=== PATIENT | male | born 1960 | race Caucasian/White ===

== ENCOUNTER 2016-12-27 07:45 | Day surgery (SDC) | payer MEDICAID, OTHER ==
[2016-12-26 08:57] VITALS: BMI 27.4
[~2016-12-27 07:45] MED LIST: LACTATED RINGERS 1,000 ML IV SCH; LIDOCAINE 1% 20 ML VIAL (10MG/ML) FOR IV START INTRADERMA PRN
[2016-12-27 08:08] VITALS: RESP 16; TEMP 97.1
[2016-12-27 08:24] LABS: Glucose,Whole Blood 144 mg/dL (75-99)
[2016-12-27] MEDS ORDERED: LIDOCAINE 1% INJ 10MG/ML (20 ML MDV) ONE (09:00)
[2016-12-27] MEDS ORDERED: PROPOFOL 10 MG/ML 20 ML VIAL IV ONE (09:00)
[2016-12-27 09:46] VITALS: BP 126/79; PULSE 77
--- NOTE | 2016-12-27 13:14 | P.PCN ---
Date of Procedure: 12/27/16 Procedure(s) Performed: Procedure: Colonoscopy and polypectomy. Preoperative diagnosis: Screening for neoplasia. Postoperative diagnosis: 2 small polyps snared 1 around the hepatic flexure and one in the sigmoid and retrieved by suction but no large polyps or cancer. Preparation: HalfLytely prep. Sedation: Was provided by anesthesia. Brief clinical history: The patient is a 56-year-old male who is referred for this evaluation for screening for neoplasia age being his risk factor. He had a colonoscopy more than 10 years ago. The patient has no abdominal complaints, bleeding or anemia. His father had colon cancer in his 80s. Procedure: With the patient on his left lateral decubitus position and after informed consent and adequate sedation, the perianal area was inspected and it did not show any fissures or fistulas. There were no masses felt on digital rectal examination. The Olympus CFQ 160L video colonoscope was then inserted in the rectum in the usual fashion and advanced to the cecum. There were 2 polyps noted, one around the hepatic flexure and one in the proximal sigmoid, benign looking averaging around 1 cm in size. Both were snared and retrieved by suction. There were no large polyps or cancer. The mucosa appeared healthy. No obvious diverticular disease. I retroflexed the endoscope in the rectum before the endoscope was withdrawn. The patient tolerated the procedure well. Plan: The patient was reassured. Will await pathology results. Because of his family history and the findings of polyps today, I anticipate repeating this exam in around 5 years. He will follow up with you as planned.
== END 2016-12-27 10:02 | disposition home or self-care (01) ==
LOC: ORWHC2ENDO 07:45
DX: Z12.11 Encounter for screening for malignant neoplasm of colon (principal); D12.5 Benign neoplasm of sigmoid colon; D12.3 Benign neoplasm of transverse colon; Z80.0 Family history of malignant neoplasm of digestive organs; Z85.828 Personal history of other malignant neoplasm of skin; E11.9 Type 2 diabetes mellitus without complications; Z79.84 Long term (current) use of oral hypoglycemic drugs; M19.90 Unspecified osteoarthritis, unspecified site; Z79.82 Long term (current) use of aspirin; Z79.899 Other long term (current) drug therapy; Z91.030 Bee allergy status
CPT/HCPCS: 88305; 45385; J2001; J2704

== ENCOUNTER → 2017-03-01 | Outpatient (CLI) | payer MEDICAID ==
[2017-03-01 08:29] LABS: Basophils # (A) 0.1 k/uL (0-0.2); Basophils % (A) 1 %; CH 30.5; CHCM 33.1; Eosinophils # (A) 0.3 k/uL (0-0.7); Eosinophils % (A) 4 %; HCT 48.3 % (39.0-53.0); HDW 2.35; HGB 15.7 gm/dL (13.0-17.5); Luc # (Auto) 0.24; Luc % (Auto) 3; Lymphocytes # (A) 3.2 k/uL (1.0-4.8); Lymphocytes % (A) 34 %; MCHC 32.5 g/dL (31.0-37.0); MCV 92.5 fL (80.0-100.0); Mean Platelet Volume 6.8; Monocytes # (A) 0.4 k/uL (0-1.0); Monocytes % (A) 4 %; Neutrophils # (A) 5.1 k/uL (1.3-7.7); Neutrophils % (A) 54 %; RBC 5.22 m/uL (4.30-5.90); RDW 12.3 % (11.5-15.5); WBC 9.4 k/uL (3.8-10.6); WBC (Perox) 9.21
[2017-03-01 09:00] LABS: ALT 41 U/L (21-72); AST 22 U/L (17-59); Alkaline Phosphatase 69 U/L (38-126); Anion Gap 8 mmol/L; Blood Urea Nitrogen 18 mg/dL (9-20); Calcium 9.5 mg/dL (8.4-10.2); Carbon Dioxide 25 mmol/L (22-30); Chloride 106 mmol/L (98-107); Cholesterol 163 mg/dL (<200); Creatine Kinase 68 U/L (55-170); Glucose 173 mg/dL (74-99); HDL Cholesterol 57 mg/dL (40-60); Non-African American GFR(MDRD) >60 (>60 ml/min/1.73 sqM); Potassium 4.7 mmol/L (3.5-5.1); Sodium 139 mmol/L (137-145); Total Bilirubin 1.1 mg/dL (0.2-1.3); Total Protein 6.9 g/dL (6.3-8.2)
[2017-03-01 09:18] LABS: Prostate Specific Antigen 0.24 ng/mL (0.00-4.00)
[2017-03-01 10:15] LABS: Erythrocyte Sedimentation Rate 2 mm/hr (0-15)
== END | disposition home or self-care (01) ==
LOC: LABWHC1 07:59
PROVIDERS: ATTEND Family Medicine
DX: Z00.00 Encounter for general adult medical examination without abnormal findings (principal); E78.00 Pure hypercholesterolemia, unspecified; R53.81 Other malaise; E55.9 Vitamin D deficiency, unspecified; Z11.59 Encounter for screening for other viral diseases
CPT/HCPCS: 36415; 80053; 80061; 80074; 82306; 82550; 82607; 84153; 84443; 85025; 85652; 87390

== ENCOUNTER → 2019-12-04 | Outpatient (CLI) | payer MEDICAID ==
[2019-12-04 09:14] LABS: Basophils # (A) 0.1 k/uL (0-0.2); Basophils % (A) 1 %; Eosinophils # (A) 0.4 k/uL (0-0.7); Eosinophils % (A) 4 %; HCT 50.5 % (39.0-53.0); HGB 15.7 gm/dL (13.0-17.5); Lymphocytes # (A) 3.7 k/uL (1.0-4.8); Lymphocytes % (A) 37 %; MCH 29.5 pg (25.0-35.0); MCHC 31.2 g/dL (31.0-37.0); MCV 94.4 fL (80.0-100.0); Mean Platelet Volume 7.3; Monocytes # (A) 0.5 k/uL (0-1.0); Monocytes % (A) 5 %; Neutrophils # (A) 5.2 k/uL (1.3-7.7); Neutrophils % (A) 51 %; Platelet Count 314 k/uL (150-450); RBC 5.34 m/uL (4.30-5.90); RDW 12.3 % (11.5-15.5); WBC 10.1 k/uL (3.8-10.6)
[2019-12-04 09:26] LABS: Appearance,Urine Clear (Clear); Bilirubin,Urine Negative (Negative); Blood,Urine Negative (Negative); Color,Urine Light Yellow; Glucose,Urine (UA) 4+ (Negative); Ketones,Urine 1+ (Negative); Leukocyte Esterase,Urine Negative (Negative); Nitrite,Urine Negative (Negative); Protein,Urine Negative (Negative); Specific Gravity,Urine 1.038 (1.001-1.035); Urobilinogen,Urine <2.0 mg/dL (<2.0)
[2019-12-04 16:22] LABS: African American GFR (CKD) 93.7 (60.0-200.0); Albumin 4.6 g/dL (3.80-4.90); Anion Gap 11.8 mmol/L (4.00-12.00); Calcium 9.7 mg/dL (8.7-10.3); Carbon Dioxide 24.2 mmol/L (21.6-31.8); Chol/HDL Ratio 3.22; Globulin 2.3 g/dL (1.6-3.3); LDL Cholesterol,Calculated 107.8 mg/dL (0.0-131.0); Non-African American GFR(CKD) 80.9 (60.0-200.0); Potassium 4.4 mmol/L (3.5-5.5); Total Bilirubin 1.1 mg/dL (0.2-1.2); Total Protein 6.9 g/dL (6.2-8.2); VLDL Calculation 23.2 mg/dL (5.00-40.00)
[2019-12-04 16:42] LABS: Prostate Specific Antigen 0.3 ng/mL (0.0-4.5)
[2019-12-04 18:32] LABS: Microalbumin Creatinine Ratio <30 mg/g Creat (0-30); Urine Creatinine 79.2 mg/dL
== END | disposition home or self-care (01) ==
LOC: LABWHC1 07:26
PROVIDERS: ATTEND Family Medicine
DX: E78.5 Hyperlipidemia, unspecified (principal); E11.65 Type 2 diabetes mellitus with hyperglycemia; Z12.5 Encounter for screening for malignant neoplasm of prostate
CPT/HCPCS: 36415; 80053; 80061; 81003; 82043; 82550; 82570; 84153; 84443; 85025

== ENCOUNTER 2020-03-22 17:33 | Inpatient (IN) | payer MEDICAID ==
[2020-03-22 17:50] LABS: Glucose,Whole Blood 287 mg/dL (75-99)
[2020-03-22] MEDS ORDERED: SODIUM CHLORIDE 0.9% 1,000 ML IV STA (17:51)
[2020-03-22] MEDS ORDERED: SODIUM CHLORIDE 0.9% 1,000 ML IV ONE (17:51)
--- NOTE | 2020-03-22 17:55 | ED ---
General Adult HPI - General Stated complaint: dehydration Time Seen by Provider: 03/22/20 17:38 Source: patient, EMS, RN notes reviewed Mode of arrival: EMS Limitations: altered mental status, physical limitation - History of Present Illness Initial comments: Patient is a pleasant 59-year-old male presenting to the emergency department with change in mental status. Patient has been generally weak for the past few days. Patient admits to not eating or drinking much. Family was concerned about change in mental status today. Patient is a poor historian and offers little information. No reported fevers. No cough. No reported vomiting or diarrhea. Patient did have recent coronavirus test a couple of days ago that was reported as negative. - Related Data Home Medications Medication Instructions Recorded Confirmed Aspirin EC [Ecotrin] 81 mg PO DAILY 08/05/15 03/22/20 Atorvastatin [Lipitor] 10 mg PO HS 08/05/15 03/22/20 metFORMIN HCL 1,000 mg PO BID 08/05/15 03/22/20 Dapagliflozin Propanediol [Farxiga] 10 mg PO DAILY 03/22/20 03/22/20 Ertugliflozin Pidolate [Steglatro] 15 mg PO DAILY 03/22/20 03/22/20 Allergies Allergy/AdvReac Type Severity Reaction Status Date / Time venom-honey bee Allergy Unknown HIVE, Verified 03/22/20 18:58 [bee venom (honey bee)] REDNESS Review of Systems ROS Statement: Those systems with pertinent positive or pertinent negative responses have been documented in the HPI. ROS Other: All systems not noted in ROS Statement are negative. 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 History of Any Multi-Drug Resistant Organisms: None Reported Past Surgical History: No Surgical Hx Reported, Orthopedic Surgery Additional Past Surgical History / Comment(s): COLONOSCOPY, LEFT ROTATOR CUFF DISTAL CLAVICLE EXCISION. LESIONS REMOVED FROM FACE Past Anesthesia/Blood Transfusion Reactions: No Reported Reaction Past Psychological History: No Psychological Hx Reported Past Alcohol Use History: Rare Past Drug Use History: None Reported - Past Family History Father Family Medical History: Cancer General Exam Limitations: no limitations General appearance: alert, in no apparent distress Head exam: Present: normocephalic Eye exam: Present: normal appearance, PERRL, EOMI, other (Right eyebrow abrasion) ENT exam: Present: mucous membranes dry Neck exam: Present: normal inspection. Absent: tenderness, meningismus Respiratory exam: Present: normal lung sounds bilaterally Cardiovascular Exam: Present: regular rate, normal rhythm GI/Abdominal exam: Present: soft. Absent: tenderness Extremities exam: Present: normal inspection Neurological exam: Present: alert, other (Resting tremor is present). Absent: motor sensory deficit Expanded Neurological exam: Present: protecting the airway Patient oriented to: Present: person, place. Absent: time Cranial nerves: EOM's Intact: Normal Motor strength exam: RUE: 5, LUE: 5, RLE: 5, LLE: 5 Eye Response: (4) open spontaneously Motor Response: (6) obeys commands Verbal Response: (4) confused conversation Psychiatric exam: Present: flat affect Skin exam: Present: normal color Course Vital Signs 03/22/20 03/22/20 03/22/20 17:50 18:40 19:20 Temperature 94 F L 95.3 F L 96.2 F L Pulse Rate 101 H 105 H 102 H Respiratory 18 18 18 Rate Blood Pressure 110/74 151/91 143/90 O2 Sat by Pulse 99 99 99 Oximetry - Reevaluation(s) Reevaluation #1: 03/22/20 21:44 Unable to perform lumbar puncture secondary to patient noncompliance with both upright and lateral positions. Patient did continue to try to lay down and would not be compliant despite several attempts. Small dose of IV Ativan was attempted without improvement of feeling comfortable performing this procedure without harming the patient. Dr. richmond was updated. 03/22/20 21:49 Case also discussed with Dr. Guan who will consult. He requests additional amp of sodium bicarb at this time. EKG Findings - EKG Comments: EKG Findings:: Sinus rhythm at 100. SC 126. QRS 70. QT 370. QTc 477. Normal axis. Normal QRS. Nonspecific ST-T. Motion artifact present. Procedures - ABG Interpretation Ph: 7.183 PCO2: 18.4 PO2: 104 Bicarbonate: 6.9 Interpretation: metabolic acidosis Medical Decision Making - Medical Decision Making Patient was reevaluated and is more alert and talkative. Still not oriented to year. is present. Patient and family updated. Case was discussed in detail with Dr. richmond, who will admit covering for Dr. Alonzo, who admits for Dr. Evangelista. - Lab Data Result diagrams: 03/22/20 18:07 03/22/20 18:07 Lab Results 03/22/20 03/22/20 03/22/20 Range/Units 17:48 18:07 18:07 WBC 19.3 H (3.8-10.6) k/uL RBC 5.10 (4.30-5.90) m/uL Hgb 15.1 (13.0-17.5) gm/dL Hct 46.1 (39.0-53.0) % MCV 90.3 (80.0-100.0) fL MCH 29.6 (25.0-35.0) pg MCHC 32.8 (31.0-37.0) g/dL RDW 13.1 (11.5-15.5) % Plt Count 317 (150-450) k/uL MPV 8.1 Neutrophils % 84 % Lymphocytes % 7 % Monocytes % 4 % Eosinophils % 1 % Basophils % 1 % Neutrophils # 16.3 H (1.3-7.7) k/uL Lymphocytes # 1.4 (1.0-4.8) k/uL Monocytes # 0.8 (0-1.0) k/uL Eosinophils # 0.1 (0-0.7) k/uL Basophils # 0.2 (0-0.2) k/uL PT 10.0 (9.0-12.0) sec INR 1.0 (<1.2) APTT 20.0 L (22.0-30.0) sec Sodium (137-145) mmol/L Potassium (3.5-5.1) mmol/L Chloride (98-107) mmol/L Carbon Dioxide (22-30) mmol/L Anion Gap mmol/L BUN (9-20) mg/dL Creatinine (0.66-1.25) mg/dL Est GFR (CKD-EPI)AfAm (>60 ml/min/1.73 sqM) Est GFR (CKD-EPI)NonAf (>60 ml/min/1.73 sqM) Glucose (74-99) mg/dL POC Glucose (mg/dL) 287 H (75-99) mg/dL POC Glu Impregnator Operator Marina Martínez Calcium (8.4-10.2) mg/dL Magnesium (1.6-2.3) mg/dL Total Bilirubin (0.2-1.3) mg/dL AST (17-59) U/L ALT (4-49) U/L Alkaline Phosphatase (38-126) U/L Lactate Dehydrogenase (313-618) U/L Troponin I (0.000-0.034) ng/mL C-Reactive Protein (<10.0) mg/L Total Protein (6.3-8.2) g/dL Albumin (3.5-5.0) g/dL TSH (0.465-4.680) mIU/L Free T4 (0.78-2.19) ng/dL Free T3 pg/mL (2.8-5.3) pg/ml Urine Color Urine Appearance (Clear) Urine pH (5.0-8.0) Ur Specific [place] (1.001-1.035) Urine Protein (Negative) Urine Glucose (UA) (Negative) Urine Ketones (Negative) Urine Blood (Negative) Urine Nitrite (Negative) Urine Bilirubin (Negative) Urine Urobilinogen (<2.0) mg/dL Ur Leukocyte Esterase (Negative) Urine RBC (0-5) /hpf Urine WBC (0-5) /hpf Ur Squamous Epith Cells (0-4) /hpf Amorphous Sediment (None) /hpf Urine Bacteria (None) /hpf Hyaline Casts (0-2) /lpf Urine Mucus (None) /hpf Salicylates mg/dL Coronavirus (PCR) (Not Detectd) 03/22/20 03/22/20 03/22/20 Range/Units 18:07 18:07 18:07 WBC (3.8-10.6) k/uL RBC (4.30-5.90) m/uL Hgb (13.0-17.5) gm/dL Hct (39.0-53.0) % MCV (80.0-100.0) fL MCH (25.0-35.0) pg MCHC (31.0-37.0) g/dL RDW (11.5-15.5) % Plt Count (150-450) k/uL MPV Neutrophils % % Lymphocytes % % Monocytes % % Eosinophils % % Basophils % % Neutrophils # (1.3-7.7) k/uL Lymphocytes # (1.0-4.8) k/uL Monocytes # (0-1.0) k/uL Eosinophils # (0-0.7) k/uL Basophils # (0-0.2) k/uL PT (9.0-12.0) sec INR (<1.2) APTT (22.0-30.0) sec Sodium 143 (137-145) mmol/L Potassium 4.7 (3.5-5.1) mmol/L Chloride 118 H (98-107) mmol/L Carbon Dioxide <5 L* (22-30) mmol/L Anion Gap mmol/L BUN 63 H (9-20) mg/dL Creatinine 2.77 H (0.66-1.25) mg/dL Est GFR (CKD-EPI)AfAm 27 (>60 ml/min/1.73 sqM) Est GFR (CKD-EPI)NonAf 24 (>60 ml/min/1.73 sqM) Glucose 309 H (74-99) mg/dL POC Glucose (mg/dL) (75-99) mg/dL POC Glu Impregnator Operator ID Calcium 8.1 L (8.4-10.2) mg/dL Magnesium 2.9 H (1.6-2.3) mg/dL Total Bilirubin 0.4 (0.2-1.3) mg/dL AST 29 (17-59) U/L ALT 15 (4-49) U/L Alkaline Phosphatase 95 (38-126) U/L Lactate Dehydrogenase 1195 H (313-618) U/L Troponin I <0.012 (0.000-0.034) ng/mL C-Reactive Protein 49.0 H (<10.0) mg/L Total Protein 5.6 L (6.3-8.2) g/dL Albumin 2.8 L (3.5-5.0) g/dL TSH 0.715 (0.465-4.680) mIU/L Free T4 0.96 (0.78-2.19) ng/dL Free T3 pg/mL 1.6 L (2.8-5.3) pg/ml Urine Color Urine Appearance (Clear) Urine pH (5.0-8.0) Ur Specific [place] (1.001-1.035) Urine Protein (Negative) Urine Glucose (UA) (Negative) Urine Ketones (Negative) Urine Blood (Negative) Urine Nitrite (Negative) Urine Bilirubin (Negative) Urine Urobilinogen (<2.0) mg/dL Ur Leukocyte Esterase (Negative) Urine RBC (0-5) /hpf Urine WBC (0-5) /hpf Ur Squamous Epith Cells (0-4) /hpf Amorphous Sediment (None) /hpf Urine Bacteria (None) /hpf Hyaline Casts (0-2) /lpf Urine Mucus (None) /hpf Salicylates <1.0 mg/dL Coronavirus (PCR) (Not Detectd) 03/22/20 03/22/20 Range/Units 18:20 18:20 WBC (3.8-10.6) k/uL RBC (4.30-5.90) m/uL Hgb (13.0-17.5) gm/dL Hct (39.0-53.0) % MCV (80.0-100.0) fL MCH (25.0-35.0) pg MCHC (31.0-37.0) g/dL RDW (11.5-15.5) % Plt Count (150-450) k/uL MPV Neutrophils % % Lymphocytes % % Monocytes % % Eosinophils % % Basophils % % Neutrophils # (1.3-7.7) k/uL Lymphocytes # (1.0-4.8) k/uL Monocytes # (0-1.0) k/uL Eosinophils # (0-0.7) k/uL Basophils # (0-0.2) k/uL PT (9.0-12.0) sec INR (<1.2) APTT (22.0-30.0) sec Sodium (137-145) mmol/L Potassium (3.5-5.1) mmol/L Chloride (98-107) mmol/L Carbon Dioxide (22-30) mmol/L Anion Gap mmol/L BUN (9-20) mg/dL Creatinine (0.66-1.25) mg/dL Est GFR (CKD-EPI)AfAm (>60 ml/min/1.73 sqM) Est GFR (CKD-EPI)NonAf (>60 ml/min/1.73 sqM) Glucose (74-99) mg/dL POC Glucose (mg/dL) (75-99) mg/dL POC Glu Impregnator Operator ID Calcium (8.4-10.2) mg/dL Magnesium (1.6-2.3) mg/dL Total Bilirubin (0.2-1.3) mg/dL AST (17-59) U/L ALT (4-49) U/L Alkaline Phosphatase (38-126) U/L Lactate Dehydrogenase (313-618) U/L Troponin I (0.000-0.034) ng/mL C-Reactive Protein (<10.0) mg/L Total Protein (6.3-8.2) g/dL Albumin (3.5-5.0) g/dL TSH (0.465-4.680) mIU/L Free T4 (0.78-2.19) ng/dL Free T3 pg/mL (2.8-5.3) pg/ml Urine Color Yellow Urine Appearance Cloudy (Clear) Urine pH 5.5 (5.0-8.0) Ur Specific [place] 1.020 (1.001-1.035) Urine Protein 2+ H (Negative) Urine Glucose (UA) 4+ H (Negative) Urine Ketones 2+ H (Negative) Urine Blood Large H (Negative) Urine Nitrite Negative (Negative) Urine Bilirubin Negative (Negative) Urine Urobilinogen <2.0 (<2.0) mg/dL Ur Leukocyte Esterase Negative (Negative) Urine RBC 6 H (0-5) /hpf Urine WBC 4 (0-5) /hpf Ur Squamous Epith Cells <1 (0-4) /hpf Amorphous Sediment Rare H (None) /hpf Urine Bacteria Rare H (None) /hpf Hyaline Casts 5 H (0-2) /lpf Urine Mucus Rare H (None) /hpf Salicylates mg/dL Coronavirus (PCR) Detected A (Not Detectd) - Radiology Data Radiology results: report reviewed (CT brain reveals no acute process), image reviewed (Chest x-ray does show patchy bilateral pulmonary infiltrates) Critical Care Time Critical Care Time: Yes Total Critical Care Time: 33 Disposition Clinical Impression: COVID-19, Dehydration, Acidosis Disposition: ADMITTED IP TO THIS HOSP Condition: Serious Is patient prescribed a controlled substance at d/c from ED?: No Decision Time: 19:59
[2020-03-22 18:35] LABS: Basophils # (A) 0.2 k/uL (0-0.2); Basophils % (A) 1 %; Eosinophils # (A) 0.1 k/uL (0-0.7); Eosinophils % (A) 1 %; HCT 46.1 % (39.0-53.0); HGB 15.1 gm/dL (13.0-17.5); Lymphocytes # (A) 1.4 k/uL (1.0-4.8); Lymphocytes % (A) 7 %; MCH 29.6 pg (25.0-35.0); MCHC 32.8 g/dL (31.0-37.0); MCV 90.3 fL (80.0-100.0); Mean Platelet Volume 8.1; Monocytes # (A) 0.8 k/uL (0-1.0); Monocytes % (A) 4 %; Neutrophils # (A) 16.3 k/uL (1.3-7.7); Neutrophils % (A) 84 %; Platelet Count 317 k/uL (150-450); RDW 13.1 % (11.5-15.5); WBC 19.3 k/uL (3.8-10.6)
[2020-03-22 18:40] LABS: Amorphous Sediment,Urine Rare /hpf; Appearance,Urine Cloudy (Clear); Bacteria,Urine Rare /hpf; Bilirubin,Urine Negative (Negative); Blood,Urine Large (Negative); Color,Urine Yellow; Glucose,Urine (UA) 4+ (Negative); Hyaline Casts,Urine 5 /lpf (0-2); Leukocyte Esterase,Urine Negative (Negative); Mucus,Urine Rare /hpf; Nitrite,Urine Negative (Negative); PH, Urine 5.5 (5.0-8.0); Protein,Urine 2+ (Negative); RBC,Urine 6 /hpf (0-5); Squamous Epithelial Cell,Urine <1 /hpf (0-4); Urobilinogen,Urine <2.0 mg/dL (<2.0); WBC,Urine 4 /hpf (0-5)
[2020-03-22 18:41] LABS: Ketones,Urine 2+ (Negative)
[2020-03-22] MEDS ORDERED: LIDOCAINE URO-JET JELLY 2% 5 ML KIT URETHRAL ONE (18:45)
[2020-03-22] MEDS: LORazepam 2 MG/ML INJ IV STA ×2 (18:47→21:40)
[2020-03-22 19:04] LABS: ALT 15 U/L (4-49); AST 29 U/L (17-59); African American GFR (CKD) 27 (>60 ml/min/1.73 sqM); Albumin 2.8 g/dL (3.5-5.0); Alkaline Phosphatase 95 U/L (38-126); Blood Urea Nitrogen 63 mg/dL (9-20); Calcium 8.1 mg/dL (8.4-10.2); Chloride 118 mmol/L (98-107); Glucose 309 mg/dL (74-99); Magnesium 2.9 mg/dL (1.6-2.3); Non-African American GFR(CKD) 24 (>60 ml/min/1.73 sqM); Potassium 4.7 mmol/L (3.5-5.1); Sodium 143 mmol/L (137-145); Total Bilirubin 0.4 mg/dL (0.2-1.3); Total Protein 5.6 g/dL (6.3-8.2)
[2020-03-22 19:17] LABS: T4, Free (Free Thyroxine) 0.96 ng/dL (0.78-2.19)
--- NOTE | 2020-03-22 19:26 | CT ---
EXAMINATION TYPE: CT brain wo con DATE OF EXAM: 03/22/2020 COMPARISON: None HISTORY: AMS CT DLP: 1099.4 mGycm Automated exposure control for dose reduction was used. Ventricles and sulci appear normal. There is no mass effect nor midline shift. There is no sign of in tracranial hemorrhage. The calvarium is intact. There is no evidence of cerebral edema. Impression normal unenhanced head CT scan.
[2020-03-22 19:29] LABS: Carbon Dioxide <5 mmol/L (22-30)
[2020-03-22] MEDS ORDERED: SODIUM CHLORIDE 0.9% 500 ML 500 ML IV STA (19:34)
[2020-03-22] MEDS ORDERED: DEXTROSE 5% IN WATER 1,000 ML with SODIUM BICARB (1 MEQ/ML) 150 ML IV SCH (19:45)
--- NOTE | 2020-03-22 19:45 | XR ---
EXAMINATION TYPE: XR chest 2V DATE OF EXAM: 03/22/2020 COMPARISON: NONE HISTORY: Altered mental status TECHNIQUE: FINDINGS: There is a normal heart and mediastinum. There is some patchy peripheral mild pulmonary int erstitial infiltrates. There are chest leads. There is no heart failure. There is no pleural effusion . Bony thorax is intact. IMPRESSION: Bilateral patchy peripheral pulmonary infiltrates.
[2020-03-22] MEDS ORDERED: SODIUM BICARB 8.4% 50 ML SYR (1 MEQ/ML) IV STA ×2 (19:49→21:48)
[2020-03-22] MEDS ORDERED: NALOXONE 0.4 MG/ML 1 ML VIAL IV PRN (20:00)
[2020-03-22] MEDS ORDERED: VANCOMYCIN IV PER PHARMACY 1 EACH MISC MISCELLANE PRN (20:00)
[2020-03-22] MEDS ORDERED: VANCOMYCIN 1,500 MG in SODIUM CHLORIDE 0.9% 250 ML IVPB ONE (20:30)
[2020-03-22 20:48] LABS: ABG Base Excess -21.4 mmol/L; ABG Oxygen Saturation 96.7 % (94-97); ABG PO2 104 mmHg (83-108); ABG TCO2 8 mmol/L (19-24); Allen Test Performed? Yes
[2020-03-22 20:52] LABS: ABG PH 7.18 (7.35-7.45)
[2020-03-22 20:53] LABS: ABG HCO3 7 mmol/L (21-25); ABG PCO2 18 mmHg (35-45)
[2020-03-22 21:13] LABS: LDH 1195 U/L (313-618); Salicylate <1.0 mg/dL
--- NOTE | 2020-03-22 21:39 | P.HPIM ---
History of Present Illness H&P Date: 03/22/20 The patient is a 59-year-old male with a PMH of type II DM and hyperlipidemia who presented to the emergency room due to altered mental status. History is provided by the at the bedside who is a clinical RN. She notes that the patient initially started feeling fatigued 2 days after Thanksgiving. He had a mild nonproductive cough and simply felt tired with no additional complaints. The patient was essentially laying in bed for the past 10 days with minimal oral intake. He was seen at his primary care physician's office on 03/18 and was tested for coronavirus which resulted as negative as per the . She notes that the patient has only been drinking a few ounces of water daily and ate "a piece of lunchmeat on Saturday". He however continues to take his medications at home. The denied him complaining of a headache or visual disturbances. Denied noticing diarrhea or vomiting. Reports that he has a very minimal non- productive cough. At baseline, the patient is high functioning and always AxO 3 him a thereby this is very unusual for him as per the . The patient was lethargic during the interview and provided very little history. When asked how he was doing, he stated that he feels fine. He said "shoulder burn" repeatedly when asked multiple questions with no clear context. Denied active pain. The patient underwent an extensive evaluation in the emergency room. Upon presentation, his vital signs revealed temperature be hypothermic with 94F, pulse of 101, BP 110/74, and and SpO2 of 99% on room air. Laboratory evaluation revealed leukocytosis of 19.3, severe metabolic acidosis with a CO2 of less than 5, chloride 118, BUN 63, creatinine 2.7, glucose 309, troponin less than 0.012, and coronavirus PCR positive. UA was also positive for 2+ ketones. CT brain was unremarkable with chest x-ray showing bilateral patchy peripheral pulmonary infiltrates, and EKG showing sinus rhythm with fusion complexes at 100 bpm and a prolonged QTC. Review of Systems Pertinent positives and negatives as discussed in HPI, a complete review of systems was performed and all other systems are negative. Past Medical History Past Medical History: Cancer, Diabetes Mellitus, Osteoarthritis (OA) Additional Past Medical History / Comment(s): SKIN CANCER ON FACE, TYPE 2 DIABETES. History of Any Multi-Drug Resistant Organisms: None Reported Past Surgical History: No Surgical Hx Reported, Orthopedic Surgery Additional Past Surgical History / Comment(s): COLONOSCOPY, LEFT ROTATOR CUFF DISTAL CLAVICLE EXCISION. LESIONS REMOVED FROM FACE Past Anesthesia/Blood Transfusion Reactions: No Reported Reaction Past Psychological History: No Psychological Hx Reported Past Alcohol Use History: Rare Past Drug Use History: None Reported - Past Family History Father Family Medical History: Cancer Medications and Allergies Home Medications Medication Instructions Recorded Confirmed Type Aspirin EC [Ecotrin] 81 mg PO DAILY 08/05/15 03/22/20 History Atorvastatin [Lipitor] 10 mg PO HS 08/05/15 03/22/20 History metFORMIN HCL 1,000 mg PO BID 08/05/15 03/22/20 History Dapagliflozin Propanediol [Farxiga] 10 mg PO DAILY 03/22/20 03/22/20 History Ertugliflozin Pidolate [Steglatro] 15 mg PO DAILY 03/22/20 03/22/20 History Allergies Allergy/AdvReac Type Severity Reaction Status Date / Time venom-honey bee Allergy Unknown HIVE, Verified 03/22/20 18:58 [bee venom (honey bee)] REDNESS Physical Exam Vitals: Vital Signs Temp Pulse Resp BP Pulse Ox 03/22/20 19:20 96.2 F L 102 H 18 143/90 99 03/22/20 18:40 95.3 F L 105 H 18 151/91 99 03/22/20 17:50 94 F L 101 H 18 110/74 99 Intake and Output 03/22/20 03/22/20 03/22/20 06:59 14:59 22:59 Output Total 200 Balance -200 Output: Urine 200 Uretheral (Yeung) 200 Other: Weight 68.039 kg General: Lethargic and dehydrated male no distress, appears at stated age, dana l weight Derm: no unusual rashes/lesions no unusual ecchymoses, warm, dry Head: atraumatic, normocephalic, symmetric Eyes: EOMI, no lid lag, anicteric sclera, pupils equal round reactive to light ENT: Nose and ears atraumatic, no thrush, no pharyngeal erythema Neck: No thyromegaly, no cervical lymphadenopathy, trachea midline, supple Mouth: no lip lesion, mucus membranes very dry Cardiovascular: S1S2 reg, no murmur, positive posterior tibial pulse bilateral, no edema, capillary refill less than 2 seconds Lungs: Some scattered rhonchi, no wheezing, no rales , no accessory muscle use Abdominal: soft, nontender to palpation, no guarding, no appreciable organomegaly, normal bowel sounds Ext: no gross muscle atrophy, muscle strength 4 out of 5 in all 4 extremities grossly, no contractures, Neuro: CN II-XI grossly intact, no focal neuro deficits, kernig's and brudzinskis negative Psych: Lethargic, oriented to self and place, not oriented to time Results CBC & Chem 7: 03/22/20 18:07 03/22/20 18:07 Labs: Abnormal Lab Results - Last 24 Hours (Table) 03/22/20 03/22/20 03/22/20 Range/Units 17:48 18: 18:07 WBC 19.3 H (3.8-10.6) k/uL Neutrophils # 16.3 H (1.3-7.7) k/uL APTT 20.0 L (22.0-30.0) sec Chloride (98-107) mmol/L Carbon Dioxide (22-30) mmol/L BUN (9-20) mg/dL Creatinine (0.66-1.25) mg/dL Glucose (74-99) mg/dL POC Glucose (mg/dL) 287 H (75-99) mg/dL Calcium (8.4-10.2) mg/dL Magnesium (1.6-2.3) mg/dL Total Protein (6.3-8.2) g/dL Albumin (3.5-5.0) g/dL Free T3 pg/mL (2.8-5.3) pg/ml Urine Protein (Negative) Urine Glucose (UA) (Negative) Urine Ketones (Negative) Urine Blood (Negative) Urine RBC (0-5) /hpf Amorphous Sediment (None) /hpf Urine Bacteria (None) /hpf Hyaline Casts (0-2) /lpf Urine Mucus (None) /hpf Coronavirus (PCR) (Not Detectd) 03/22/20 03/22/20 03/22/20 Range/Units 18:07 18:20 18:20 WBC (3.8-10.6) k/uL Neutrophils # (1.3-7.7) k/uL APTT (22.0-30.0) sec Chloride 118 H (98-107) mmol/L Carbon Dioxide <5 L* (22-30) mmol/L BUN 63 H (9-20) mg/dL Creatinine 2.77 H (0.66-1.25) mg/dL Glucose 309 H (74-99) mg/dL POC Glucose (mg/dL) (75-99) mg/dL Calcium 8.1 L (8.4-10.2) mg/dL Magnesium 2.9 H (1.6-2.3) mg/dL Total Protein 5.6 L (6.3-8.2) g/dL Albumin 2.8 L (3.5-5.0) g/dL Free T3 pg/mL 1.6 L (2.8-5.3) pg/ml Urine Protein 2+ H (Negative) Urine Glucose (UA) 4+ H (Negative) Urine Ketones 2+ H (Negative) Urine Blood Large H (Negative) Urine RBC 6 H (0-5) /hpf Amorphous Sediment Rare H (None) /hpf Urine Bacteria Rare H (None) /hpf Hyaline Casts 5 H (0-2) /lpf Urine Mucus Rare H (None) /hpf Coronavirus (PCR) Detected A (Not Detectd) Assessment and Plan Plan: Altered mental status with severe high anion gap metabolic acidosis and severe sepsis -Differentials include toxic metabolic encephalopathy secondary to severe dehydration from DKA in setting of COVID-19 infection (SGLT 2 inhibitors in setting of hypovolemia can cause euglycemic DKA) vs severe sepsis from meningitis/encephalitis vs salicylate poisoning (levels pending) -ED to perform LP on patient -Acetone levels pending with UA showing ketones -Bicarbonate infusion -Continue with insulin infusion w/ blood glucose monitoring q1h -Monitor electrolytes -C/w empiric antibiotics w/ Ceftriaxone, Vancomycin, Ampicillin, and Acyclovir -IVFs -ID and Neuro consults -F/u Lactate levels -Neurochecks COVID 19 -Current SpO2 99% on RA -Not a candidate for dexamethasone ATIF -Likely secondary to severe dehydration -Management as per above DVT prophylaxis -Lovenox subq The patient is admitted with an anticipated greater than 2 midnight stay for evaluation of AMS CODE STATUS: Full Code Discussed with: Patient Anticipated discharge date: 4-[address]: Home A total of 45 minutes was spent on the care of this complex patient more than 50% of the time was spent in counseling and care coordination
[2020-03-22 22:05] LABS: Glucose,Whole Blood 195 mg/dL (75-99)
[2020-03-22] MEDS: INSULIN REGULAR 100 UNIT in SODIUM CHLORIDE 0.9% 100 ML IV SCH (22:13)
[2020-03-22] MEDS: SODIUM CHLORIDE 0.9% 1,000 ML IV SCH (22:22)
[2020-03-22] MEDS ORDERED: D5-0.45% NACL WITH KCL 20MEQ/L 1,000 ML IV SCH (22:30)
[2020-03-22 23:17] LABS: Glucose,Whole Blood 182 mg/dL (75-99)
[2020-03-23 00:25] LABS: Glucose,Whole Blood 155 mg/dL (75-99)
[2020-03-23 00:57] LABS: Glucose,Whole Blood 155 mg/dL (75-99)
[2020-03-23 01:16] LABS: Potassium 3.6 mmol/L (3.5-5.1)
[2020-03-23 01:22] LABS: Phosphorus 1.1 mg/dL (2.5-4.5)
[2020-03-23 02:05] LABS: Glucose,Whole Blood 179 mg/dL (75-99)
[2020-03-23 03:09] LABS: Glucose,Whole Blood 134 mg/dL (75-99)
[2020-03-23 04:03] LABS: Glucose,Whole Blood 139 mg/dL (75-99)
[2020-03-23 04:07] LABS: Basophils # (A) 0.2 k/uL (0-0.2); Basophils % (A) 2 %; Eosinophils # (A) 0.1 k/uL (0-0.7); Eosinophils % (A) 1 %; HCT 46.5 % (39.0-53.0); Lymphocytes # (A) 0.6 k/uL (1.0-4.8); Lymphocytes % (A) 5 %; MCH 30.3 pg (25.0-35.0); MCHC 34.4 g/dL (31.0-37.0); MCV 88.2 fL (80.0-100.0); Mean Platelet Volume 7.9; Monocytes # (A) 0.4 k/uL (0-1.0); Monocytes % (A) 3 %; Neutrophils # (A) 11.4 k/uL (1.3-7.7); Neutrophils % (A) 88 %; Platelet Count 253 k/uL (150-450); RBC 5.27 m/uL (4.30-5.90); RDW 12.6 % (11.5-15.5); WBC 12.9 k/uL (3.8-10.6)
[2020-03-23] MEDS: ACYCLOVIR SODIUM 500 MG in SODIUM CHLORIDE 0.9% 100 ML IVPB SCH ×3 (04:10→20:57)
[2020-03-23] MEDS: AMPICILLIN 2,000 MG in SODIUM CHLORIDE 0.9% 100 ML IVPB SCH ×3 (04:10→17:42)
[2020-03-23 04:30] LABS: Albumin 2.8 g/dL (3.5-5.0); Calcium 8.1 mg/dL (8.4-10.2); Potassium 3.4 mmol/L (3.5-5.1); Total Bilirubin 0.5 mg/dL (0.2-1.3); Total Protein 5.8 g/dL (6.3-8.2)
[2020-03-23 05:06] LABS: Phosphorus 0.6 mg/dL (2.5-4.5)
[2020-03-23 05:15] LABS: Glucose,Whole Blood 115 mg/dL (75-99)
[2020-03-23 06:03] LABS: Glucose,Whole Blood 105 mg/dL (75-99)
[2020-03-23] MEDS: POTASSIUM PHOSPHATE 10 MMOL in SODIUM CHLORIDE 0.9% 250 ML IV SCH ×3 (06:28→14:21)
[2020-03-23] MEDS ORDERED: DEXTROSE 5% IN WATER 1,000 ML with SODIUM BICARB (1 MEQ/ML) 100 ML IV SCH ×3 (06:30→16:00)
[2020-03-23 06:36] LABS: D-Dimer 1.9 mg/L FEU (<0.60)
[2020-03-23 06:51] LABS: Glucose,Whole Blood 111 mg/dL (75-99)
[2020-03-23 06:55] LABS: Partial Thromboplastin Time 19.1 sec (22.0-30.0)
[2020-03-23] MEDS ORDERED: DEXMEDETOMIDINE/0.9% NACL(PMX) 400 MCG in EMPTY BAG 1 BAG IV SCH (07:00)
[2020-03-23 07:08] LABS: Appearance,Urine Cloudy (Clear); Bacteria,Urine Rare /hpf; Bilirubin,Urine Negative (Negative); Blood,Urine Moderate (Negative); Color,Urine Colorless; Glucose,Urine (UA) 2+ (Negative); Ketones,Urine 1+ (Negative); Leukocyte Esterase,Urine Negative (Negative); Mucus,Urine Rare /hpf; Nitrite,Urine Negative (Negative); Protein,Urine Trace (Negative); RBC,Urine 3 /hpf (0-5); Specific Gravity,Urine 1.007 (1.001-1.035); Squamous Epithelial Cell,Urine <1 /hpf (0-4); Uric Acid Crystals,Urine Few /hpf; Urobilinogen,Urine <2.0 mg/dL (<2.0); WBC,Urine 4 /hpf (0-5)
--- NOTE | 2020-03-23 07:47 | P.CNPUL ---
History of Present Illness Consult date: 03/23/20 Reason for consult: pneumonia History of present illness: This is a 59-year-old male patient who came in to the [facility] yesterday because of an altered mental status. The patient started getting sick around Thanksgiving time. His condition was progressively getting worse. He has some mild cough and he was progressively getting more fatigued and sized. His condition progressively got worse over the past 10 days as the patient was taken minimal amount of oral intake and ultimately decompensated and he came into the emergency department yesterday having significant altered mentation and he was extremely lethargic. He was unable to provide any history. The patient was seen in the emergency department. He was on room air oxygen with a pulse ox of 99%. Hemodynamically parameters were stable. He was hypothermic with a temperature of 94. Nevertheless, his blood work was profoundly abnormal. Acute kidney injury. Again of 63 with a creatinine of 2.7. He had +2 ketones in his urine. The patient had a sodium level of 143, serum bicarbonate less than 5, potassium level was at 4.7, glucose was at 309, the patient had a calcium of 8.1, magnesium of 2.9, phosphorus from this morning's of 0.6, liver function tests were within normal limits, LDH was 1195, troponin was negative, CRP was 49, and the lactic acid level was at 1. The patient has a positive coronavirus COVID 19 PCR. Overnight, the patient was brought into the intensive care unit. He . Remains quite restless and agitated. This morning, he is going to be started on Precedex to control his agitation. He received 1.5 L in the emergency department, and he received fluids here in the ICU in the form of D5 half-normal saline with potassium and D5 sodium bicarbonate with 50 mEq of sodium bicarbonate running at 100 mL an hour. This morning, I switched his IV fluids to D5 with 100 mEq of sodium bicarbonate at 50 ML an Hour. Sodium Level Is at 149 from Today. Serum Bicarb Is up to 14. His Creatinine Is down to 2.1. Is Producing Adequate Amount of Urine Output. He Is Quite Restless and He Will Be Started on Precedex. Sinus rhythm he is in a sinus rhythm. He is on Precedex running at 0.4 g per KG per minute. He remains on room air oxygen. He is also on insulin drip at 0.2 units per hour for protocol. The chest x-ray showing bilateral pulmonary infiltrates consistent with Covid 19 related pneumonia. CAT scan of the brain done in the emergency was within normal limits. 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 History of Any Multi-Drug Resistant Organisms: None Reported Past Surgical History: No Surgical Hx Reported, Orthopedic Surgery Additional Past Surgical History / Comment(s): COLONOSCOPY, LEFT ROTATOR CUFF DISTAL CLAVICLE EXCISION. LESIONS REMOVED FROM FACE Past Anesthesia/Blood Transfusion Reactions: No Reported Reaction Past Psychological History: No Psychological Hx Reported Past Alcohol Use History: Rare Past Drug Use History: None Reported - Past Family History Father Family Medical History: Cancer Medications and Allergies Home Medications Medication Instructions Recorded Confirmed Type Aspirin EC [Ecotrin] 81 mg PO DAILY 08/05/15 03/22/20 History Atorvastatin [Lipitor] 10 mg PO HS 08/05/15 03/22/20 History metFORMIN HCL 1,000 mg PO BID 08/05/15 03/22/20 History Dapagliflozin Propanediol [Farxiga] 10 mg PO DAILY 03/22/20 03/22/20 History Ertugliflozin Pidolate [Steglatro] 15 mg PO DAILY 03/22/20 03/22/20 History Allergies Allergy/AdvReac Type Severity Reaction Status Date / Time venom-honey bee Allergy Unknown HIVE, Verified 03/22/20 18:58 [bee venom (honey bee)] REDNESS Physical Exam Vitals: Vital Signs Temp Pulse Resp BP Pulse Ox 03/23/20 06:00 106 H 24 144/85 97 03/23/20 05:00 115 H 26 H 148/79 96 03/23/20 04:00 98.6 F 116 H 24 139/74 96 03/23/20 03:00 118 H 26 H 146/77 95 03/23/20 02:00 102 H 28 H 142/88 95 03/23/20 01:00 97.4 F L 111 H 32 H 169/97 95 03/23/20 00:00 97.3 F L 110 H 18 148/82 95 03/22/20 23:00 97.5 F L 79 18 139/83 95 03/22/20 22:00 97.9 F 95 18 168/89 97 03/22/20 21:00 97.2 F L 90 18 175/90 97 03/22/20 20:00 97.2 F L 99 16 138/75 98 03/22/20 19:20 96.2 F L 102 H 18 143/90 99 03/22/20 18:40 95.3 F L 105 H 18 151/91 99 03/22/20 17:50 94 F L 101 H 18 110/74 99 Intake and Output 03/22/20 03/23/20 03/23/20 22:59 06:59 14:59 Intake Total 1441.657 Output Total 200 2100 Balance -200 -658.343 Intake: IV 1400 Acyclovir Sodium 500 mg 100 In Sodium Chloride 0.9% 100 ml @ 100 mls/hr IVPB Q12HR ANABELLA Rx#:[id number] Ampicillin 2,000 mg In 100 Sodium Chloride 0.9% 100 ml @ 200 mls/hr IVPB Q8HR ANABELLA Rx#:[id number] D5-0.45% NaCl with KCl 600 20Meq/l 1,000 ml @ 100 mls/hr IV .Q10H ANABELLA Rx#: [id number] Dextrose 5% in Water 1, 600 000 ml @ 100 mls/hr IV . [id number] ANABELLA with Sodium Bicarb (1 Meq/ml) 150 ml Rx#:[id number] Intake, IV Titration 41.657 Amount Insulin Regular 100 unit 41.657 In Sodium Chloride 0.9% 100 ml @ 0.1 UNITS/KG/HR 6.872 mls/hr IV .[id number] ANABELLA Rx#:[id number] Output: Urine 200 2100 Uretheral (Yeung) 200 Other: Weight 68.039 kg the patient is unable to Yeung catheterization. His restless in bed. He is not aware of his location. His speech is garbled. Nevertheless, the patient is moving all 4 extremities without any limitation. No neck stiffness. Head exam was generally normal. There was no scleral icterus or corneal arcus. Mucous membranes were moist. Neck was supple and without jugular venous distension, thyromegaly, or carotid bruits. Carotids were easily palpable bilaterally. There was no adenopathy. Lungs sounds are diminished in the suspected lung bases bilaterally Cardiac exam revealed the PMI to be normally situated and sized. The rhythm was regular and no extrasystoles were noted during several minutes of auscultation. The first and second heart sounds were normal and physiologic splitting of the second heart sound was noted. There were no murmurs, rubs, clicks, or gallops.] Abdominal exam revealed normal bowel sounds. The abdomen was soft, non-tender, and without masses, organomegaly, or appreciable enlargement of the abdominal aorta. Examination of the extremities revealed easily palpable radial, femoral and pedal pulses. There was no cyanosis, clubbing or edema. Examination of the skin revealed no evidence of significant rashes, suspicious appearing nevi or other concerning lesions. Neurologically his exam is nonfocal. Pupils are equal and reactive to light. No facial asymmetry. Reflexes are symmetrical. Results - Laboratory Findings CBC and BMP: 03/23/20 03:24 03/23/20 03:24 ABG ABG pH 7.18 (7.35-7.45) L* 03/22/20 20:45 ABG pCO2 18 mmHg (35-45) L* 03/22/20 20:45 ABG pO2 104 mmHg (83-108) 03/22/20 20:45 ABG O2 Saturation 96.7 % (94-97) 03/22/20 20:45 PT/INR, D-dimer PT 10.0 sec (9.0-12.0) 03/23/20 03:24 INR 1.0 (<1.2) 03/23/20 03:24 D-Dimer 1.90 mg/L FEU (<0.60) H 03/23/20 03:24 Abnormal lab findings: Abnormal Labs 03/22/20 03/22/20 03/22/20 17:48 18:07 18:07 WBC 19.3 H Neutrophils # 16.3 H Lymphocytes # APTT 20.0 L D-Dimer ABG pH ABG pCO2 ABG HCO3 ABG Total CO2 Sodium Potassium Chloride Carbon Dioxide BUN Creatinine Glucose POC Glucose (mg/dL) 287 H Calcium Phosphorus Magnesium Lactate Dehydrogenase C-Reactive Protein Total Protein Albumin Free T3 pg/mL Urine Protein Urine Glucose (UA) Urine Ketones Urine Blood Urine RBC Urine WBC Clumps Uric Acid Crystals Amorphous Sediment Urine Bacteria Hyaline Casts Urine Mucus Coronavirus (PCR) 03/22/20 03/22/20 03/22/20 18:07 18:07 18:20 WBC Neutrophils # Lymphocytes # APTT D-Dimer ABG pH ABG pCO2 ABG HCO3 ABG Total CO2 Sodium Potassium Chloride 118 H Carbon Dioxide <5 L* BUN 63 H Creatinine 2.77 H Glucose 309 H POC Glucose (mg/dL) Calcium 8.1 L Phosphorus Magnesium 2.9 H Lactate Dehydrogenase 1195 H C-Reactive Protein 49.0 H Total Protein 5.6 L Albumin 2.8 L Free T3 pg/mL 1.6 L Urine Protein 2+ H Urine Glucose (UA) 4+ H Urine Ketones 2+ H Urine Blood Large H Urine RBC 6 H Urine WBC Clumps Uric Acid Crystals Amorphous Sediment Rare H Urine Bacteria Rare H Hyaline Casts 5 H Urine Mucus Rare H Coronavirus (PCR) 03/22/20 03/22/20 03/22/20 18:20 20:45 22:04 WBC Neutrophils # Lymphocytes # APTT D-Dimer ABG pH 7.18 L* ABG pCO2 18 L* ABG HCO3 7 L* ABG Total CO2 8 L Sodium Potassium Chloride Carbon Dioxide BUN Creatinine Glucose POC Glucose (mg/dL) 195 H Calcium Phosphorus Magnesium Lactate Dehydrogenase C-Reactive Protein Total Protein Albumin Free T3 pg/mL Urine Protein Urine Glucose (UA) Urine Ketones Urine Blood Urine RBC Urine WBC Clumps Uric Acid Crystals Amorphous Sediment Urine Bacteria Hyaline Casts Urine Mucus Coronavirus (PCR) Detected A 03/22/20 03/23/20 03/23/20 23:15 00:23 00:33 WBC Neutrophils # Lymphocytes # APTT D-Dimer ABG pH ABG pCO2 ABG HCO3 ABG Total CO2 Sodium 148 H Potassium Chloride 123 H Carbon Dioxide 13 L BUN 62 H Creatinine 2.41 H Glucose 166 H POC Glucose (mg/dL) 182 H 155 H Calcium Phosphorus 1.1 L Magnesium Lactate Dehydrogenase C-Reactive Protein Total Protein Albumin Free T3 pg/mL Urine Protein Urine Glucose (UA) Urine Ketones Urine Blood Urine RBC Urine WBC Clumps Uric Acid Crystals Amorphous Sediment Urine Bacteria Hyaline Casts Urine Mucus Coronavirus (PCR) 03/23/20 03/23/20 03/23/20 00:55 02:02 03:07 WBC Neutrophils # Lymphocytes # APTT D-Dimer ABG pH ABG pCO2 ABG HCO3 ABG Total CO2 Sodium Potassium Chloride Carbon Dioxide BUN Creatinine Glucose POC Glucose (mg/dL) 155 H 179 H 134 H Calcium Phosphorus Magnesium Lactate Dehydrogenase C-Reactive Protein Total Protein Albumin Free T3 pg/mL Urine Protein Urine Glucose (UA) Urine Ketones Urine Blood Urine RBC Urine WBC Clumps Uric Acid Crystals Amorphous Sediment Urine Bacteria Hyaline Casts Urine Mucus Coronavirus (PCR) 03/23/20 03/23/20 03/23/20 03:24 03:24 03:24 WBC 12.9 H Neutrophils # 11.4 H Lymphocytes # 0.6 L APTT 19.1 L D-Dimer 1.90 H ABG pH ABG pCO2 ABG HCO3 ABG Total CO2 Sodium 149 H Potassium 3.4 L Chloride 124 H Carbon Dioxide 14 L BUN 60 H Creatinine 2.16 H Glucose 129 H POC Glucose (mg/dL) Calcium 8.1 L Phosphorus 0.6 L* Magnesium Lactate Dehydrogenase C-Reactive Protein Total Protein 5.8 L Albumin 2.8 L Free T3 pg/mL Urine Protein Urine Glucose (UA) Urine Ketones Urine Blood Urine RBC Urine WBC Clumps Uric Acid Crystals Amorphous Sediment Urine Bacteria Hyaline Casts Urine Mucus Coronavirus (PCR) 03/23/20 03/23/20 03/23/20 04:02 05:13 06:00 WBC Neutrophils # Lymphocytes # APTT D-Dimer ABG pH ABG pCO2 ABG HCO3 ABG Total CO2 Sodium Potassium Chloride Carbon Dioxide BUN Creatinine Glucose POC Glucose (mg/dL) 139 H 115 H Calcium Phosphorus Magnesium Lactate Dehydrogenase C-Reactive Protein Total Protein Albumin Free T3 pg/mL Urine Protein Trace H Urine Glucose (UA) 2+ H Urine Ketones 1+ H Urine Blood Moderate H Urine RBC Urine WBC Clumps Rare H Uric Acid Crystals Few H Amorphous Sediment Urine Bacteria Rare H Hyaline Casts Urine Mucus Rare H Coronavirus (PCR) 03/23/20 03/23/20 06:01 06:50 WBC Neutrophils # Lymphocytes # APTT D-Dimer ABG pH ABG pCO2 ABG HCO3 ABG Total CO2 Sodium Potassium Chloride Carbon Dioxide BUN Creatinine Glucose POC Glucose (mg/dL) 105 H 111 H Calcium Phosphorus Magnesium Lactate Dehydrogenase C-Reactive Protein Total Protein Albumin Free T3 pg/mL Urine Protein Urine Glucose (UA) Urine Ketones Urine Blood Urine RBC Urine WBC Clumps Uric Acid Crystals Amorphous Sediment Urine Bacteria Hyaline Casts Urine Mucus Coronavirus (PCR) - Diagnostic Findings Chest x-ray: image reviewed Assessment and Plan Plan: 1 acute COVID 19 infection/pneumonia. No significant respiratory distress. Nevertheless, the patient has better pulmonary infiltrates and the patient has constitutional symptoms and altered mentation and severe dehydration and acute kidney injury, PROBABLY complications of this viral infection. 2 acute kidney injury 3 altered mental status with episodic encephalopathy, likely secondary to above 4 severe anion gap metabolic acidosis 5 diabetes mellitus maintained on oral hypoglycemics on outpatient basis 6 hyperlipidemia 7 hypertension Plan We'll continue with a bicarb infusion. Recommend D5 with 100 mEq of sodium bicarbonate at the rate of 150 mL an hour The patient has major it right imbalance. Replace the potassium and phosphorus today. The patient will be given K-Phos. Renal function is improving. Keep the Yeung catheter in place and monitored urine output CAT scan of the brain is negative Neuro consultation Put the patient on Decadron 6 mg IV every 24 hours Continue insulin drip for blood sugar control Lovenox for DVT prophylaxis. D-dimer is mildly elevated. US of the kidneys The patient was started on empiric antibiotics the medical team. I do not think this is consistent with a bacterial pneumonia. The patient will be kept on Precedex for restlessness and agitation. If indicated or requested by neurology, will do a lumbar puncture. I think his episode of encephalopathy is essentially metabolic COVID19 infection.
--- NOTE | 2020-03-23 08:09 | XR ---
EXAMINATION TYPE: XR chest 1V DATE OF EXAM: 03/23/2020 COMPARISON: 03/22/2020 INDICATION: Short of breath TECHNIQUE: Single frontal view of the chest is obtained. FINDINGS: The heart size is normal. The pulmonary vasculature is normal. Patchy peripheral infiltrates are present. Findings are stable IMPRESSION: 1. Patchy bilateral peripheral infiltrates. Correlate for atypical pneumonia.
[2020-03-23] MEDS: PANTOPRAZOLE 40 MG/10 ML VIAL IV SCH (08:16)
[2020-03-23] MEDS: DEXAMETHASONE SOD PHOSPHATE 10 MG/ML 1 ML VIAL IV SCH (08:16)
[2020-03-23] MEDS: ENOXAPARIN 40 MG/0.4 ML SYRINGE SQ SCH (08:16)
[2020-03-23 08:45] LABS: Glucose,Whole Blood 127 mg/dL (75-99)
[2020-03-23] MEDS ORDERED: ENOXAPARIN 30 MG/0.3 ML SYRINGE SQ SCH (09:00)
[2020-03-23] MEDS ORDERED: FAMOTIDINE 20 MG/2 ML VIAL IV SCH (09:00)
[2020-03-23 09:49] LABS: Glucose,Whole Blood 135 mg/dL (75-99)
--- NOTE | 2020-03-23 09:55 | US ---
EXAMINATION TYPE: US kidneys/renal and bladder DATE OF EXAM: 03/23/2020 COMPARISON: NONE CLINICAL HISTORY: oliguria. ICU patient in restraints, oliguria EXAM MEASUREMENTS: Right Kidney: 11.1 x 4.5 x 5.9 cm Left Kidney: 11.7 x 5.1 x 5.8 cm patient moving throughout exam Right Kidney: No hydronephrosis or masses seen Left Kidney: No hydronephrosis or masses seen, unable to do spleen comparison Bladder: garcia cath. There is poor visualization of the decompressed urinary bladder. IMPRESSION: 1. Normal renal ultrasound. 2. Urinary bladder is very limited with a Garcia catheter nondistention during this exam
[2020-03-23] MEDS ORDERED: HALOPERIDOL LACTATE 5 MG/ML 1 ML VIAL IVP PRN (10:40)
--- NOTE | 2020-03-23 10:50 | P.PN ---
Subjective Progress Note Date: 03/23/20 Patient appears quite restless and agitated this morning despite max dose of precedex. He is in restraints but pulling at his garcia catheter, moving all extremities without focal deficit, but A+Ox0 and not interacting with me or following commands. Objective - Vital Signs Vital signs: Vital Signs Temp 98.6 F 03/23/20 04:00 Pulse 122 H 03/23/20 07:00 Resp 24 03/23/20 07:00 BP 128/92 03/23/20 07:00 Pulse Ox 97 03/23/20 07:00 Intake & Output 03/22/20 03/23/20 03/23/20 18:59 06:59 18:59 Intake Total 1441.657 101.873 Output Total 200 2100 300 Balance -200 -658.343 -198.127 Weight 68.039 kg Intake: IV 1400 100 Acyclovir Sodium 500 mg 100 In Sodium Chloride 0.9% 100 ml @ 100 mls/hr IVPB Q12HR ANABELLA Rx#:[id number] Ampicillin 2,000 mg In 100 Sodium Chloride 0.9% 100 ml @ 200 mls/hr IVPB Q8HR ANABELLA Rx#:[id number] D5-0.45% NaCl with KCl 600 20Meq/l 1,000 ml @ 100 mls/hr IV .Q10H ANABELLA Rx#: [id number] Dextrose 5% in Water 1, 600 100 000 ml @ 100 mls/hr IV . [id number] ANABELLA with Sodium Bicarb (1 Meq/ml) 150 ml Rx#:[id number] Intake, IV Titration 41.657 1.873 Amount Dexmedetomidine/0.9% NaCl 1.36 (Pmx) 400 mcg In Empty Bag 1 bag @ Titrate IV . Q0M ANABELLA Rx#:[id number] Insulin Regular 100 unit 41.657 0.513 In Sodium Chloride 0.9% 100 ml @ 0.1 UNITS/KG/HR 6.872 mls/hr IV .[id number] ANABELLA Rx#:[id number] Output: Urine 200 2100 300 Uretheral (Garcia) 200 Other: Voiding Method Indwelling Catheter - Exam Gen: awake, alert HEENT: normocephalic, atraumatic, good hearing acuity, moist mucous membranes Resp: good air exchange, breathing comfortably with no accessory muscle use CVS: good distal perfusion x 4, GI: soft, NTTP, ND : no SPT, no CVAT, garcia catheter is present MSK: no pitting edema, no clubbing Neuro: non-focal, moving all extremities Psych: cooperative, euthymic mood - Labs CBC & Chem 7: 03/23/20 03:24 03/23/20 03:24 Labs: Abnormal Lab Results - Last 24 Hours (Table) 03/22/20 03/22/20 03/22/20 Range/Units 17:48 18:07 18:07 WBC 19.3 H (3.8-10.6) k/uL Neutrophils # 16.3 H (1.3-7.7) k/uL Lymphocytes # (1.0-4.8) k/uL APTT 20.0 L (22.0-30.0) sec D-Dimer (<0.60) mg/L FEU ABG pH (7.35-7.45) ABG pCO2 (35-45) mmHg ABG HCO3 (21-25) mmol/L ABG Total CO2 (19-24) mmol/L Sodium (137-145) mmol/L Potassium (3.5-5.1) mmol/L Chloride (98-107) mmol/L Carbon Dioxide (22-30) mmol/L BUN (9-20) mg/dL Creatinine (0.66-1.25) mg/dL Glucose (74-99) mg/dL POC Glucose (mg/dL) 287 H (75-99) mg/dL Calcium (8.4-10.2) mg/dL Phosphorus (2.5-4.5) mg/dL Magnesium (1.6-2.3) mg/dL Lactate Dehydrogenase (313-618) U/L C-Reactive Protein (<10.0) mg/L Total Protein (6.3-8.2) g/dL Albumin (3.5-5.0) g/dL Free T3 pg/mL (2.8-5.3) pg/ml Urine Protein (Negative) Urine Glucose (UA) (Negative) Urine Ketones (Negative) Urine Blood (Negative) Urine RBC (0-5) /hpf Urine WBC Clumps (None) /hpf Uric Acid Crystals (None) /hpf Amorphous Sediment (None) /hpf Urine Bacteria (None) /hpf Hyaline Casts (0-2) /lpf Urine Mucus (None) /hpf Coronavirus (PCR) (Not Detectd) 03/22/20 03/22/20 03/22/20 Range/Units 18:07 18:07 18:20 WBC (3.8-10.6) k/uL Neutrophils # (1.3-7.7) k/uL Lymphocytes # (1.0-4.8) k/uL APTT (22.0-30.0) sec D-Dimer (<0.60) mg/L FEU ABG pH (7.35-7.45) ABG pCO2 (35-45) mmHg ABG HCO3 (21-25) mmol/L ABG Total CO2 (19-24) mmol/L Sodium (137-145) mmol/L Potassium (3.5-5.1) mmol/L Chloride 118 H (98-107) mmol/L Carbon Dioxide <5 L* (22-30) mmol/L BUN 63 H (9-20) mg/dL Creatinine 2.77 H (0.66-1.25) mg/dL Glucose 309 H (74-99) mg/dL POC Glucose (mg/dL) (75-99) mg/dL Calcium 8.1 L (8.4-10.2) mg/dL Phosphorus (2.5-4.5) mg/dL Magnesium 2.9 H (1.6-2.3) mg/dL Lactate Dehydrogenase 1195 H (313-618) U/L C-Reactive Protein 49.0 H (<10.0) mg/L Total Protein 5.6 L (6.3-8.2) g/dL Albumin 2.8 L (3.5-5.0) g/dL Free T3 pg/mL 1.6 L (2.8-5.3) pg/ml Urine Protein 2+ H (Negative) Urine Glucose (UA) 4+ H (Negative) Urine Ketones 2+ H (Negative) Urine Blood Large H (Negative) Urine RBC 6 H (0-5) /hpf Urine WBC Clumps (None) /hpf Uric Acid Crystals (None) /hpf Amorphous Sediment Rare H (None) /hpf Urine Bacteria Rare H (None) /hpf Hyaline Casts 5 H (0-2) /lpf Urine Mucus Rare H (None) /hpf Coronavirus (PCR) (Not Detectd) 03/22/20 03/22/20 03/22/20 Range/Units 18:20 20:45 22:04 WBC (3.8-10.6) k/uL Neutrophils # (1.3-7.7) k/uL Lymphocytes # (1.0-4.8) k/uL APTT (22.0-30.0) sec D-Dimer (<0.60) mg/L FEU ABG pH 7.18 L* (7.35-7.45) ABG pCO2 18 L* (35-45) mmHg ABG HCO3 7 L* (21-25) mmol/L ABG Total CO2 8 L (19-24) mmol/L Sodium (137-145) mmol/L Potassium (3.5-5.1) mmol/L Chloride (98-107) mmol/L Carbon Dioxide (22-30) mmol/L BUN (9-20) mg/dL Creatinine (0.66-1.25) mg/dL Glucose (74-99) mg/dL POC Glucose (mg/dL) 195 H (75-99) mg/dL Calcium (8.4-10.2) mg/dL Phosphorus (2.5-4.5) mg/dL Magnesium (1.6-2.3) mg/dL Lactate Dehydrogenase (313-618) U/L C-Reactive Protein (<10.0) mg/L Total Protein (6.3-8.2) g/dL Albumin (3.5-5.0) g/dL Free T3 pg/mL (2.8-5.3) pg/ml Urine Protein (Negative) Urine Glucose (UA) (Negative) Urine Ketones (Negative) Urine Blood (Negative) Urine RBC (0-5) /hpf Urine WBC Clumps (None) /hpf Uric Acid Crystals (None) /hpf Amorphous Sediment (None) /hpf Urine Bacteria (None) /hpf Hyaline Casts (0-2) /lpf Urine Mucus (None) /hpf Coronavirus (PCR) Detected A (Not Detectd) 03/22/20 03/23/20 03/23/20 Range/Units 23:15 00:23 00:33 WBC (3.8-10.6) k/uL Neutrophils # (1.3-7.7) k/uL Lymphocytes # (1.0-4.8) k/uL APTT (22.0-30.0) sec D-Dimer (<0.60) mg/L FEU ABG pH (7.35-7.45) ABG pCO2 (35-45) mmHg ABG HCO3 (21-25) mmol/L ABG Total CO2 (19-24) mmol/L Sodium 148 H (137-145) mmol/L Potassium (3.5-5.1) mmol/L Chloride 123 H (98-107) mmol/L Carbon Dioxide 13 L (22-30) mmol/L BUN 62 H (9-20) mg/dL Creatinine 2.41 H (0.66-1.25) mg/dL Glucose 166 H (74-99) mg/dL POC Glucose (mg/dL) 182 H 155 H (75-99) mg/dL Calcium (8.4-10.2) mg/dL Phosphorus 1.1 L (2.5-4.5) mg/dL Magnesium (1.6-2.3) mg/dL Lactate Dehydrogenase (313-618) U/L C-Reactive Protein (<10.0) mg/L Total Protein (6.3-8.2) g/dL Albumin (3.5-5.0) g/dL Free T3 pg/mL (2.8-5.3) pg/ml Urine Protein (Negative) Urine Glucose (UA) (Negative) Urine Ketones (Negative) Urine Blood (Negative) Urine RBC (0-5) /hpf Urine WBC Clumps (None) /hpf Uric Acid Crystals (None) /hpf Amorphous Sediment (None) /hpf Urine Bacteria (None) /hpf Hyaline Casts (0-2) /lpf Urine Mucus (None) /hpf Coronavirus (PCR) (Not Detectd) 03/23/20 03/23/20 03/23/20 Range/Units 00:55 02:02 03:07 WBC (3.8-10.6) k/uL Neutrophils # (1.3-7.7) k/uL Lymphocytes # (1.0-4.8) k/uL APTT (22.0-30.0) sec D-Dimer (<0.60) mg/L FEU ABG pH (7.35-7.45) ABG pCO2 (35-45) mmHg ABG HCO3 (21-25) mmol/L ABG Total CO2 (19-24) mmol/L Sodium (137-145) mmol/L Potassium (3.5-5.1) mmol/L Chloride (98-107) mmol/L Carbon Dioxide (22-30) mmol/L BUN (9-20) mg/dL Creatinine (0.66-1.25) mg/dL Glucose (74-99) mg/dL POC Glucose (mg/dL) 155 H 179 H 134 H (75-99) mg/dL Calcium (8.4-10.2) mg/dL Phosphorus (2.5-4.5) mg/dL Magnesium (1.6-2.3) mg/dL Lactate Dehydrogenase (313-618) U/L C-Reactive Protein (<10.0) mg/L Total Protein (6.3-8.2) g/dL Albumin (3.5-5.0) g/dL Free T3 pg/mL (2.8-5.3) pg/ml Urine Protein (Negative) Urine Glucose (UA) (Negative) Urine Ketones (Negative) Urine Blood (Negative) Urine RBC (0-5) /hpf Urine WBC Clumps (None) /hpf Uric Acid Crystals (None) /hpf Amorphous Sediment (None) /hpf Urine Bacteria (None) /hpf Hyaline Casts (0-2) /lpf Urine Mucus (None) /hpf Coronavirus (PCR) (Not Detectd) 03/23/20 03/23/20 03/23/20 Range/Units 03:24 03:24 03:24 WBC 12.9 H (3.8-10.6) k/uL Neutrophils # 11.4 H (1.3-7.7) k/uL Lymphocytes # 0.6 L (1.0-4.8) k/uL APTT 19.1 L (22.0-30.0) sec D-Dimer 1.90 H (<0.60) mg/L FEU ABG pH (7.35-7.45) ABG pCO2 (35-45) mmHg ABG HCO3 (21-25) mmol/L ABG Total CO2 (19-24) mmol/L Sodium 149 H (137-145) mmol/L Potassium 3.4 L (3.5-5.1) mmol/L Chloride 124 H (98-107) mmol/L Carbon Dioxide 14 L (22-30) mmol/L BUN 60 H (9-20) mg/dL Creatinine 2.16 H (0.66-1.25) mg/dL Glucose 129 H (74-99) mg/dL POC Glucose (mg/dL) (75-99) mg/dL Calcium 8.1 L (8.4-10.2) mg/dL Phosphorus 0.6 L* (2.5-4.5) mg/dL Magnesium (1.6-2.3) mg/dL Lactate Dehydrogenase (313-618) U/L C-Reactive Protein (<10.0) mg/L Total Protein 5.8 L (6.3-8.2) g/dL Albumin 2.8 L (3.5-5.0) g/dL Free T3 pg/mL (2.8-5.3) pg/ml Urine Protein (Negative) Urine Glucose (UA) (Negative) Urine Ketones (Negative) Urine Blood (Negative) Urine RBC (0-5) /hpf Urine WBC Clumps (None) /hpf Uric Acid Crystals (None) /hpf Amorphous Sediment (None) /hpf Urine Bacteria (None) /hpf Hyaline Casts (0-2) /lpf Urine Mucus (None) /hpf Coronavirus (PCR) (Not Detectd) 03/23/20 03/23/20 03/23/20 Range/Units 04:02 05:13 06:00 WBC (3.8-10.6) k/uL Neutrophils # (1.3-7.7) k/uL Lymphocytes # (1.0-4.8) k/uL APTT (22.0-30.0) sec D-Dimer (<0.60) mg/L FEU ABG pH (7.35-7.45) ABG pCO2 (35-45) mmHg ABG HCO3 (21-25) mmol/L ABG Total CO2 (19-24) mmol/L Sodium (137-145) mmol/L Potassium (3.5-5.1) mmol/L Chloride (98-107) mmol/L Carbon Dioxide (22-30) mmol/L BUN (9-20) mg/dL Creatinine (0.66-1.25) mg/dL Glucose (74-99) mg/dL POC Glucose (mg/dL) 139 H 115 H (75-99) mg/dL Calcium (8.4-10.2) mg/dL Phosphorus (2.5-4.5) mg/dL Magnesium (1.6-2.3) mg/dL Lactate Dehydrogenase (313-618) U/L C-Reactive Protein (<10.0) mg/L Total Protein (6.3-8.2) g/dL Albumin (3.5-5.0) g/dL Free T3 pg/mL (2.8-5.3) pg/ml Urine Protein Trace H (Negative) Urine Glucose (UA) 2+ H (Negative) Urine Ketones 1+ H (Negative) Urine Blood Moderate H (Negative) Urine RBC (0-5) /hpf Urine WBC Clumps Rare H (None) /hpf Uric Acid Crystals Few H (None) /hpf Amorphous Sediment (None) /hpf Urine Bacteria Rare H (None) /hpf Hyaline Casts (0-2) /lpf Urine Mucus Rare H (None) /hpf Coronavirus (PCR) (Not Detectd) 03/23/20 03/23/20 03/23/20 Range/Units 06:01 06:50 08:44 WBC (3.8-10.6) k/uL Neutrophils # (1.3-7.7) k/uL Lymphocytes # (1.0-4.8) k/uL APTT (22.0-30.0) sec D-Dimer (<0.60) mg/L FEU ABG pH (7.35-7.45) ABG pCO2 (35-45) mmHg ABG HCO3 (21-25) mmol/L ABG Total CO2 (19-24) mmol/L Sodium (137-145) mmol/L Potassium (3.5-5.1) mmol/L Chloride (98-107) mmol/L Carbon Dioxide (22-30) mmol/L BUN (9-20) mg/dL Creatinine (0.66-1.25) mg/dL Glucose (74-99) mg/dL POC Glucose (mg/dL) 105 H 111 H 127 H (75-99) mg/dL Calcium (8.4-10.2) mg/dL Phosphorus (2.5-4.5) mg/dL Magnesium (1.6-2.3) mg/dL Lactate Dehydrogenase (313-618) U/L C-Reactive Protein (<10.0) mg/L Total Protein (6.3-8.2) g/dL Albumin (3.5-5.0) g/dL Free T3 pg/mL (2.8-5.3) pg/ml Urine Protein (Negative) Urine Glucose (UA) (Negative) Urine Ketones (Negative) Urine Blood (Negative) Urine RBC (0-5) /hpf Urine WBC Clumps (None) /hpf Uric Acid Crystals (None) /hpf Amorphous Sediment (None) /hpf Urine Bacteria (None) /hpf Hyaline Casts (0-2) /lpf Urine Mucus (None) /hpf Coronavirus (PCR) (Not Detectd) 03/23/20 Range/Units 09:47 WBC (3.8-10.6) k/uL Neutrophils # (1.3-7.7) k/uL Lymphocytes # (1.0-4.8) k/uL APTT (22.0-30.0) sec D-Dimer (<0.60) mg/L FEU ABG pH (7.35-7.45) ABG pCO2 (35-45) mmHg ABG HCO3 (21-25) mmol/L ABG Total CO2 (19-24) mmol/L Sodium (137-145) mmol/L Potassium (3.5-5.1) mmol/L Chloride (98-107) mmol/L Carbon Dioxide (22-30) mmol/L BUN (9-20) mg/dL Creatinine (0.66-1.25) mg/dL Glucose (74-99) mg/dL POC Glucose (mg/dL) 135 H (75-99) mg/dL Calcium (8.4-10.2) mg/dL Phosphorus (2.5-4.5) mg/dL Magnesium (1.6-2.3) mg/dL Lactate Dehydrogenase (313-618) U/L C-Reactive Protein (<10.0) mg/L Total Protein (6.3-8.2) g/dL Albumin (3.5-5.0) g/dL Free T3 pg/mL (2.8-5.3) pg/ml Urine Protein (Negative) Urine Glucose (UA) (Negative) Urine Ketones (Negative) Urine Blood (Negative) Urine RBC (0-5) /hpf Urine WBC Clumps (None) /hpf Uric Acid Crystals (None) /hpf Amorphous Sediment (None) /hpf Urine Bacteria (None) /hpf Hyaline Casts (0-2) /lpf Urine Mucus (None) /hpf Coronavirus (PCR) (Not Detectd) Assessment and Plan Assessment: 1. Mixed Encephalopathy, metabolic and septic 2. Diabetic Ketoacidosis 3. COVID 19 4. ATIF 5. Hypertension, essential 6. Hyperlipidemia 59 year old man with HTN/HLD/DM presented with hyperactive delirium, poor PO intake for 10 days, and high anion gap metabolic acidosis and was noted to be COVID positive with multifactorial encephalopathy. He was admitted to the ICU for treatment with precedex gtt for agitation, and was started on broad spectrum meningitis coverage + acyclovir for encephalitis coverage. Altered mental status with severe high anion gap metabolic acidosis and severe sepsis -Differentials include toxic metabolic encephalopathy secondary to severe dehydration from DKA in setting of COVID-19 infection (SGLT 2 inhibitors in setting of hypovolemia can cause euglycemic DKA) vs severe sepsis from meningitis/encephalitis vs salicylate poisoning (levels pending) -Neurology consult to determine need for LP -Acetone levels pending with UA showing ketones, improving -Bicarbonate infusion -Continue with insulin infusion w/ blood glucose monitoring q1h -Monitor electrolytes -C/w empiric antibiotics w/ Ceftriaxone, Vancomycin, Ampicillin, and Acyclovir -IVFs -ID and Neuro consults -F/u Lactate levels -Neurochecks COVID 19 -Current SpO2 99% on RA -Not a candidate for dexamethasone ATIF -Likely secondary to severe dehydration -Management as per above DVT prophylaxis -Lovenox subq The patient is admitted with an anticipated greater than 2 midnight stay for evaluation of AMS CODE STATUS: Full Code Discussed with: Patient Anticipated discharge date: 4-[address]: Home
[2020-03-23] MEDS: HALOPERIDOL LACTATE 5 MG/ML 1 ML VIAL IVP PRN ×5 (10:58→22:13)
[2020-03-23] MEDS ORDERED: DEXTROSE 5% IN WATER 1,000 ML with SODIUM BICARB (1 MEQ/ML) 150 ML IV SCH (12:00)
[2020-03-23 12:28] LABS: Albumin 2.8 g/dL (3.5-5.0); Calcium 7.7 mg/dL (8.4-10.2); Potassium 3.6 mmol/L (3.5-5.1); Total Bilirubin 0.6 mg/dL (0.2-1.3); Total Protein 5.7 g/dL (6.3-8.2)
[2020-03-23 12:34] LABS: Glucose,Whole Blood 223 mg/dL (75-99)
--- NOTE | 2020-03-23 13:03 | CONS ---
CONSULTATION REASON FOR CONSULT: Renal failure. HISTORY OF PRESENT ILLNESS: Patient is a 59-year-old male who was admitted to the hospital with complaints of altered mentation, severe lethargy and fatigue. He had not been feeling well for the past week or so. He was tested initially for COVID infection as outpatient was negative. However, upon admission, upon retesting, patient was positive. He was found to be severely acidotic with a serum creatinine of 2.7 and CO2 less than 5. There is no prior history of kidney diseases. Serum creatinine was 2.7. Currently urine output has improved since patient has been on IV fluids and IV bicarb and his creatinine today is down to 2.1 mg/dL. There is no history of use of NSAIDs. Patient was on metformin prior to admission. PAST MEDICAL HISTORY: Significant for type 2 diabetes, osteoarthritis, history of skin cancer. PAST SURGICAL HISTORY: Colonoscopy, left rotator cuff excision, removal of lesions from the face. SOCIAL HISTORY: Negative for smoking, drug abuse, or alcohol abuse. MEDICATIONS: Prior to admission included Farxiga, Steglatro, Lipitor, metformin, aspirin. ALLERGIES: Include BEE VENOM. REVIEW OF SYSTEMS: Negative for GI bleed, diarrhea. The patient has cough. Other systems negative, mostly as per HPI. PHYSICAL EXAMINATION: Patient is confused. He is quite restless. He is in restraints. Blood pressure 144/85, heart rate 106 per minute, he is afebrile. Examination shows no evidence of edema bilateral lower extremities. Abdomen is soft, nontender. Patient is moving all 4 extremities. Lungs and heart are not examined. LABS: Show sodium 149, potassium 3.4, chloride 124, CO2 is 14, BUN 60, creatinine 2.16, phosphorus 0.6, hemoglobin 16.0 g/dL. Acetone was positive. Chest x-ray shows bilateral infiltrates. An ultrasound of the kidney shows no significant abnormal findings. ASSESSMENT: 1. Acute kidney injury, prerenal and ATN associated with underlying volume depletion and COVID infection/COVID pneumonia, currently patient is nonoliguric. Continue with IV hydration. Hold off on metformin. 2. Metabolic acidosis associated with renal failure. Lactic acid was not elevated. Patient was on metformin which can also cause metabolic acidosis; however, lactic acid was not elevated and it mostly causes lactic acidosis. Continue with the bicarb drip for now. The acidosis is improving. We will repeat labs as well. 3. Hypernatremia associated with free water deficit. Continue with D5W with 2 amps of bicarb due to hyponatremia. We will adjust the bicarb concentration based on his repeat labs from this morning. 4. Hypokalemia associated with decreased oral intake as well as bicarb drip. 5. Hypophosphatemia associated with decreased oral intake and ETOH abuse. 6. Positive the serum, not sure patient has a history of alcohol use. 7. Hematuria and proteinuria. Rule out underlying GN, although unlikely. We will repeat the UA in the next couple of days. 8. COVID-19 pneumonia, maintained on steroids. PLAN: Continue bicarb drip repeat labs. Replace potassium if it remains low. Replace phosphorus. Continue off metformin. Continue antibiotics. Continue treatment for COVID pneumonia and infection. Thank you for this consultation. Will continue to follow the patient with you during his hospitalization. MMODL / IJN: [id number] /
[2020-03-23 14:28] LABS: Glucose,Whole Blood 252 mg/dL (75-99)
[2020-03-23] MEDS ORDERED: POTASSIUM CHLORIDE 20 MEQ in WATER FOR INJECTION 1 100ML.BAG IVPB STA (15:15)
[2020-03-23 15:50] LABS: Glucose,Whole Blood 299 mg/dL (75-99)
[2020-03-23] MEDS ORDERED: DEXTROSE 5% IN WATER 1,000 ML IV SCH (16:00)
[2020-03-23] MEDS: INSULIN REGULAR 100 UNIT in SODIUM CHLORIDE 0.9% 100 ML IV SCH (16:03)
[2020-03-23 17:53] LABS: Glucose,Whole Blood 310 mg/dL (75-99)
--- NOTE | 2020-03-23 19:04 | P.CNNES ---
History of Present Illness Consult date: 03/23/20 Requesting physician: Nancy Chambers Reason for Consult: Altered mental status History of Present Illness: Patient is a 59-year-old male came to the hospital yesterday at 5:33 PM by ambulance for changes in mental status. Patient has been generally weak for the past few days. Patient admits to not eating or drinking much. Family was concerned about change in mental status. No fevers or cough. Patient not able to provide any history. As per EMS flow sheet, patient's has mentioned that patient has generalized malaise for the past week, and for the past 3-4 days he has not been eating or drinking very much with increased weakness and has just to the point that he just mumbles and won't get out of bed. Patient's denies any signs and symptoms of stroke or UTI. He had a recent Covid testing negative. Patient was noted to have extreme dehydration with worse skin turgor and fissured tongue. Patient's condition improved while he was being transferred and was able to say his name and birthday by the time he was transferred. His blood pressure was 107/69, pulse rate 94, saturation 92%. Vitals on arrival blood pressure 110/74, pulse rate 101, temperature 94.[address] head normal. Chest x-ray showed bilateral patchy peripheral pulmonary infiltrates. EKG shows sinus rhythm with fusion complexes. Repeat chest x-ray showed patchy bilateral peripheral infiltrates. Correlate for atypical pneumonia. Patient's WBC count was 19.3, hemoglobin 15.1. PT/PTT normal. ABG with pH 7.18, pCO2 18, saturation 96%. Sodium 148, potassium 3.6, BUN 63, creatinine 2.77, hepatic panel normal. TSH and free T4 normal. UA negative, acetone is positive. Harper virus positive. Apparently lumbar puncture was attempted in the ER but was unsuccessful as patient was not cooperative. Patient was admitted to the ICU. He appears obviously encephalopathic, smiles for no reason. Mumbles. Offers no intelligible complaints Review of Systems ROS unobtainable: due to mental status Past Medical History Past Medical History: Cancer, Diabetes Mellitus, Osteoarthritis (OA) Additional Past Medical History / Comment(s): SKIN CANCER ON FACE, TYPE 2 DIABETES. History of Any Multi-Drug Resistant Organisms: None Reported Past Surgical History: No Surgical Hx Reported, Orthopedic Surgery Additional Past Surgical History / Comment(s): COLONOSCOPY, LEFT ROTATOR CUFF DISTAL CLAVICLE EXCISION. LESIONS REMOVED FROM FACE Past Anesthesia/Blood Transfusion Reactions: No Reported Reaction Past Psychological History: No Psychological Hx Reported Past Alcohol Use History: Rare Past Drug Use History: None Reported - Past Family History Father Family Medical History: Cancer Medications and Allergies Home Medications Medication Instructions Recorded Confirmed Type Aspirin EC [Ecotrin] 81 mg PO DAILY 08/05/15 03/22/20 History Atorvastatin [Lipitor] 10 mg PO HS 08/05/15 03/22/20 History metFORMIN HCL 1,000 mg PO BID 08/05/15 03/22/20 History Dapagliflozin Propanediol [Farxiga] 10 mg PO DAILY 03/22/20 03/22/20 History Ertugliflozin Pidolate [Steglatro] 15 mg PO DAILY 03/22/20 03/22/20 History Allergies Allergy/AdvReac Type Severity Reaction Status Date / Time venom-honey bee Allergy Unknown HIVE, Verified 03/22/20 18:58 [bee venom (honey bee)] REDNESS Physical Examination - Vital Signs Vital Signs: Vital Signs Temp Pulse Resp BP Pulse Ox 03/23/20 07:00 122 H 24 128/92 97 03/23/20 06:00 106 H 24 144/85 97 03/23/20 05:00 115 H 26 H 148/79 96 03/23/20 04:00 98.6 F 116 H 24 139/74 96 03/23/20 03:00 118 H 26 H 146/77 95 03/23/20 02:00 102 H 28 H 142/88 95 03/23/20 01:00 97.4 F L 111 H 32 H 169/97 95 03/23/20 00:00 97.3 F L 110 H 18 148/82 95 03/22/20 23:00 97.5 F L 79 18 139/83 95 03/22/20 22:00 97.9 F 95 18 168/89 97 03/22/20 21:00 97.2 F L 90 18 175/90 97 03/22/20 20:00 97.2 F L 99 16 138/75 98 03/22/20 19:20 96.2 F L 102 H 18 143/90 99 03/22/20 18:40 95.3 F L 105 H 18 151/91 99 03/22/20 17:50 94 F L 101 H 18 110/74 99 Intake and Output 03/22/20 03/23/20 03/23/20 22:59 06:59 14:59 Intake Total 1441.657 101.873 Output Total 200 2100 300 Balance -200 -658.343 -198.127 Intake: IV 1400 100 Acyclovir Sodium 500 mg 100 In Sodium Chloride 0.9% 100 ml @ 100 mls/hr IVPB Q12HR ANABELLA Rx#:[id number] Ampicillin 2,000 mg In 100 Sodium Chloride 0.9% 100 ml @ 200 mls/hr IVPB Q8HR ANABELLA Rx#:[id number] D5-0.45% NaCl with KCl 600 20Meq/l 1,000 ml @ 100 mls/hr IV .Q10H ANABELLA Rx#: [id number] Dextrose 5% in Water 1, 600 100 000 ml @ 100 mls/hr IV . [id number] ANABELLA with Sodium Bicarb (1 Meq/ml) 150 ml Rx#:[id number] Intake, IV Titration 41.657 1.873 Amount Dexmedetomidine/0.9% NaCl 1.36 (Pmx) 400 mcg In Empty Bag 1 bag @ Titrate IV . Q0M ANABELLA Rx#:[id number] Insulin Regular 100 unit 41.657 0.513 In Sodium Chloride 0.9% 100 ml @ 0.1 UNITS/KG/HR 6.872 mls/hr IV .[id number] ANABELLA Rx#:[id number] Output: Urine 200 2100 300 Uretheral (Yeung) 200 Other: Weight 68.039 kg On examination patient is a middle aged male, appears slightly older than his stated age. He appears somewhat malnutrition, with some wasting of his muscles with skin hanging in his calves and thighs. Patient mumbles, not able to understand any speech. He makes eye contact, appears somewhat preoccupied with internal thoughts. On cranial examination pupils are round and reactive to light, extraocular muscles are intact. Visual oneil could not be tested. Face appears symmetric. Patient did not protrude his tongue or showed his palate. Patient moves his arms and legs equally. He did not cooperate with examination. He does move his arms and legs to painful stimuli equally with some withdrawal and facial grimacing. Reflexes are symmetric and plantars are upgoing bilaterally. Tone is normal, bulk of muscles decreased. No obvious seizure activity noted. Cerebellar functions could not be tested. No obvious bruit, S1 and S2 audible. Abdomen soft. Peripheral pulses present. Results - Laboratory Findings CBC and BMP: 03/23/20 03:24 03/23/20 11:53 Abnormal Lab Findings: Abnormal Labs 03/22/20 03/22/20 03/22/20 17:48 18:07 18:07 WBC 19.3 H Neutrophils # 16.3 H Lymphocytes # APTT 20.0 L D-Dimer ABG pH ABG pCO2 ABG HCO3 ABG Total CO2 Sodium Potassium Chloride Carbon Dioxide BUN Creatinine Glucose POC Glucose (mg/dL) 287 H Calcium Phosphorus Magnesium Lactate Dehydrogenase C-Reactive Protein Total Protein Albumin Free T3 pg/mL Urine Protein Urine Glucose (UA) Urine Ketones Urine Blood Urine RBC Urine WBC Clumps Uric Acid Crystals Amorphous Sediment Urine Bacteria Hyaline Casts Urine Mucus Coronavirus (PCR) 03/22/20 03/22/20 03/22/20 18:07 18:07 18:20 WBC Neutrophils # Lymphocytes # APTT D-Dimer ABG pH ABG pCO2 ABG HCO3 ABG Total CO2 Sodium Potassium Chloride 118 H Carbon Dioxide <5 L* BUN 63 H Creatinine 2.77 H Glucose 309 H POC Glucose (mg/dL) Calcium 8.1 L Phosphorus Magnesium 2.9 H Lactate Dehydrogenase 1195 H C-Reactive Protein 49.0 H Total Protein 5.6 L Albumin 2.8 L Free T3 pg/mL 1.6 L Urine Protein 2+ H Urine Glucose (UA) 4+ H Urine Ketones 2+ H Urine Blood Large H Urine RBC 6 H Urine WBC Clumps Uric Acid Crystals Amorphous Sediment Rare H Urine Bacteria Rare H Hyaline Casts 5 H Urine Mucus Rare H Coronavirus (PCR) 03/22/20 03/22/20 03/22/20 18:20 20:45 22:04 WBC Neutrophils # Lymphocytes # APTT D-Dimer ABG pH 7.18 L* ABG pCO2 18 L* ABG HCO3 7 L* ABG Total CO2 8 L Sodium Potassium Chloride Carbon Dioxide BUN Creatinine Glucose POC Glucose (mg/dL) 195 H Calcium Phosphorus Magnesium Lactate Dehydrogenase C-Reactive Protein Total Protein Albumin Free T3 pg/mL Urine Protein Urine Glucose (UA) Urine Ketones Urine Blood Urine RBC Urine WBC Clumps Uric Acid Crystals Amorphous Sediment Urine Bacteria Hyaline Casts Urine Mucus Coronavirus (PCR) Detected A 03/22/20 03/23/20 03/23/20 23:15 00:23 00:33 WBC Neutrophils # Lymphocytes # APTT D-Dimer ABG pH ABG pCO2 ABG HCO3 ABG Total CO2 Sodium 148 H Potassium Chloride 123 H Carbon Dioxide 13 L BUN 62 H Creatinine 2.41 H Glucose 166 H POC Glucose (mg/dL) 182 H 155 H Calcium Phosphorus 1.1 L Magnesium Lactate Dehydrogenase C-Reactive Protein Total Protein Albumin Free T3 pg/mL Urine Protein Urine Glucose (UA) Urine Ketones Urine Blood Urine RBC Urine WBC Clumps Uric Acid Crystals Amorphous Sediment Urine Bacteria Hyaline Casts Urine Mucus Coronavirus (PCR) 03/23/20 03/23/20 03/23/20 00:55 02:02 03:07 WBC Neutrophils # Lymphocytes # APTT D-Dimer ABG pH ABG pCO2 ABG HCO3 ABG Total CO2 Sodium Potassium Chloride Carbon Dioxide BUN Creatinine Glucose POC Glucose (mg/dL) 155 H 179 H 134 H Calcium Phosphorus Magnesium Lactate Dehydrogenase C-Reactive Protein Total Protein Albumin Free T3 pg/mL Urine Protein Urine Glucose (UA) Urine Ketones Urine Blood Urine RBC Urine WBC Clumps Uric Acid Crystals Amorphous Sediment Urine Bacteria Hyaline Casts Urine Mucus Coronavirus (PCR) 03/23/20 03/23/20 03/23/20 03:24 03:24 03:24 WBC 12.9 H Neutrophils # 11.4 H Lymphocytes # 0.6 L APTT 19.1 L D-Dimer 1.90 H ABG pH ABG pCO2 ABG HCO3 ABG Total CO2 Sodium 149 H Potassium 3.4 L Chloride 124 H Carbon Dioxide 14 L BUN 60 H Creatinine 2.16 H Glucose 129 H POC Glucose (mg/dL) Calcium 8.1 L Phosphorus 0.6 L* Magnesium Lactate Dehydrogenase C-Reactive Protein Total Protein 5.8 L Albumin 2.8 L Free T3 pg/mL Urine Protein Urine Glucose (UA) Urine Ketones Urine Blood Urine RBC Urine WBC Clumps Uric Acid Crystals Amorphous Sediment Urine Bacteria Hyaline Casts Urine Mucus Coronavirus (PCR) 03/23/20 03/23/20 03/23/20 04:02 05:13 06:00 WBC Neutrophils # Lymphocytes # APTT D-Dimer ABG pH ABG pCO2 ABG HCO3 ABG Total CO2 Sodium Potassium Chloride Carbon Dioxide BUN Creatinine Glucose POC Glucose (mg/dL) 139 H 115 H Calcium Phosphorus Magnesium Lactate Dehydrogenase C-Reactive Protein Total Protein Albumin Free T3 pg/mL Urine Protein Trace H Urine Glucose (UA) 2+ H Urine Ketones 1+ H Urine Blood Moderate H Urine RBC Urine WBC Clumps Rare H Uric Acid Crystals Few H Amorphous Sediment Urine Bacteria Rare H Hyaline Casts Urine Mucus Rare H Coronavirus (PCR) 03/23/20 03/23/20 03/23/20 06:01 06:50 08:44 WBC Neutrophils # Lymphocytes # APTT D-Dimer ABG pH ABG pCO2 ABG HCO3 ABG Total CO2 Sodium Potassium Chloride Carbon Dioxide BUN Creatinine Glucose POC Glucose (mg/dL) 105 H 111 H 127 H Calcium Phosphorus Magnesium Lactate Dehydrogenase C-Reactive Protein Total Protein Albumin Free T3 pg/mL Urine Protein Urine Glucose (UA) Urine Ketones Urine Blood Urine RBC Urine WBC Clumps Uric Acid Crystals Amorphous Sediment Urine Bacteria Hyaline Casts Urine Mucus Coronavirus (PCR) Assessment and Plan Assessment: * Altered mental status, likely due to toxic metabolic encephalopathy due to reasons mentioned below. * Patient admitted with severe acidosis, electrolyte imbalance and renal failure. Probable dehydration. * COVID-19 infection with pneumonia. Plan: * Patient's mental status appears somewhat worse than the amount of metabolic dysfunction. * I will check EEG to evaluate for encephalopathy, rule out any seizure activity. * Suggest lumbar puncture to rule out any intracranial infectious process. * Medical management as per IM and ICU team. * Dr. Keven Oakes will resume neurology service in the morning.
[2020-03-23 19:06] LABS: Glucose,Whole Blood 296 mg/dL (75-99)
[2020-03-23 20:31] LABS: Glucose,Whole Blood 287 mg/dL (75-99)
[2020-03-23] MEDS ORDERED: VANCOMYCIN 1,250 MG in SODIUM CHLORIDE 0.9% 250 ML IVPB SCH (21:00)
[2020-03-23 21:14] LABS: Glucose,Whole Blood 189 mg/dL (75-99)
[2020-03-23 21:39] LABS: Calcium 6.7 mg/dL (8.4-10.2)
[2020-03-23 21:42] LABS: Potassium 8.4 mmol/L (3.5-5.1)
[2020-03-23 22:21] LABS: Glucose,Whole Blood 152 mg/dL (75-99)
[2020-03-23 22:38] LABS: Calcium 7.7 mg/dL (8.4-10.2); Potassium 3.4 mmol/L (3.5-5.1); Total Bilirubin 0.7 mg/dL (0.2-1.3)
[2020-03-23 22:59] LABS: Glucose,Whole Blood 130 mg/dL (75-99)
--- NOTE | 2020-03-23 23:30 | P.CONS ---
History of Present Illness - Reason for Consult Consult date: 03/23/20 sepsis Requesting physician: Georgie Holm - Chief Complaint mental status changes x few days - History of Present Illness Patient is a 59-year male presenting to the ER at [facility] yesterday for evaluation of mental status changes patient has been generally weak for the past few days apparently not eating or drinking much family has been concerned about his mental status for the patient has been brought to the hospital no clear history of any fever cough vomiting or diarrhea reported. Patient did have a Covid test few days ago in the outpatient setting which was negative on presentation to this facility patient was hypothermic on p resentation to the hospital with a temperature of 94 subsequently patient has normalized patient did have tachycardia patient did have elevated white of 19.3 with a left shift did have elevated D-dimer creatinine was elevated patient had normal lactic acid CRP 49 LDH was elevated patient really not significantly positive Covid test came back positive patient did have a CT of the brain negative for any bleed did have bilateral patchy peripheral peripheral pulmonary infiltrate ultrasound of the abdominal did not show any acute findings patient is currently being started on acyclovir ampicillin's dexamethasone Lovenox vancomycin infectious was consulted for further management most information has been obtained from review the chart as the patient is currently in restraints and is unable to provide any history. 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 History of Any Multi-Drug Resistant Organisms: None Reported Past Surgical History: No Surgical Hx Reported, Orthopedic Surgery Additional Past Surgical History / Comment(s): COLONOSCOPY, LEFT ROTATOR CUFF DISTAL CLAVICLE EXCISION. LESIONS REMOVED FROM FACE Past Anesthesia/Blood Transfusion Reactions: No Reported Reaction Past Psychological History: No Psychological Hx Reported Past Alcohol Use History: Rare Past Drug Use History: None Reported - Past Family History Father Family Medical History: Cancer Medications and Allergies Home Medications Medication Instructions Recorded Confirmed Type Aspirin EC [Ecotrin] 81 mg PO DAILY 08/05/15 03/22/20 History Atorvastatin [Lipitor] 10 mg PO HS 08/05/15 03/22/20 History metFORMIN HCL 1,000 mg PO BID 08/05/15 03/22/20 History Dapagliflozin Propanediol [Farxiga] 10 mg PO DAILY 03/22/20 03/22/20 History Ertugliflozin Pidolate [Steglatro] 15 mg PO DAILY 03/22/20 03/22/20 History Allergies Allergy/AdvReac Type Severity Reaction Status Date / Time venom-honey bee Allergy Unknown HIVE, Verified 03/22/20 18:58 [bee venom (honey bee)] REDNESS Physical Exam Vitals: Vital Signs Temp Pulse Resp BP Pulse Ox 03/23/20 19:00 98 21 117/96 99 03/23/20 18:00 101 H 19 114/81 99 03/23/20 17:00 106 H 25 H 146/84 98 03/23/20 16:00 98.5 F 117 H 16 142/119 99 03/23/20 15:00 108 H 26 H 143/80 97 03/23/20 14:00 120 H 16 164/104 98 03/23/20 13:00 96 22 130/88 97 03/23/20 12:00 98.4 F 96 22 137/88 97 03/23/20 11:00 112 H 25 H 163/101 96 03/23/20 10:00 111 H 22 136/95 98 03/23/20 09:00 109 H 22 150/94 96 03/23/20 08:00 98.4 F 113 H 15 133/71 97 03/23/20 07:00 122 H 24 128/92 97 03/23/20 06:00 106 H 24 144/85 97 03/23/20 05:00 115 H 26 H 148/79 96 03/23/20 04:00 98.6 F 116 H 24 139/74 96 03/23/20 03:00 118 H 26 H 146/77 95 03/23/20 02:00 102 H 28 H 142/88 95 03/23/20 01:00 97.4 F L 111 H 32 H 169/97 95 03/23/20 00:00 97.3 F L 110 H 18 148/82 95 03/22/20 23:00 97.5 F L 79 18 139/83 95 03/22/20 22:00 97.9 F 95 18 168/89 97 Intake and Output 03/23/20 03/23/20 03/23/20 06:59 14:59 22:59 Intake Total 7950.225 2414.873 765.050 Output Total 2100 2250 1155 Balance -658.343 -198.127 -389.950 Intake: IV 1400 2050 750 Acyclovir Sodium 500 mg 100 100 In Sodium Chloride 0.9% 100 ml @ 100 mls/hr IVPB Q12HR [facility] Rx#:[id number] Ampicillin 2,000 mg In 100 100 Sodium Chloride 0.9% 100 ml @ 200 mls/hr IVPB Q8HR [facility] Rx#:[id number] D5-0.45% NaCl with KCl 600 20Meq/l 1,000 ml @ 100 mls/hr IV .Q10H [facility] Rx#: [id number] Dextrose 5% in Water 1, 600 1100 500 000 ml @ 100 mls/hr IV . [id number] [facility] with Sodium Bicarb (1 Meq/ml) 150 ml Rx#:[id number] Dextrose 5% in Water 1, 250 000 ml @ 50 mls/hr IV . Q20H [facility] Rx#:[id number] Potassium Phosphate 10 750 mmol In Sodium Chloride 0 .9% 250 ml @ 125 mls/hr IV Q2H [facility] Rx#:[id number] Intake, IV Titration 41.657 1.873 15.050 Amount Dexmedetomidine/0.9% NaCl 1.36 (Pmx) 400 mcg In Empty Bag 1 bag @ Titrate IV . Q0M [facility] Rx#:[id number] Insulin Regular 100 unit 41.657 0.513 15.050 In Sodium Chloride 0.9% 100 ml @ 0.1 UNITS/KG/HR 6.872 mls/hr IV .[id number] [facility] Rx#:[id number] Output: Urine 2099 2250 1155 Other: Voiding Method Indwelling Catheter Indwelling Catheter Indwelling Catheter GENERAL DESCRIPTION: Middle-aged male lying in bed, no distress. No tachypnea or accessory muscle of respiration use. HEENT: Shows Pallor , no scleral icterus. Oral mucous membrane is dry. NECK: Trachea central, no thyromegaly. LUNGS: Unlabored breathing. Decreased breath sound in the base. No wheeze or crackle. HEART: S1, S2, regular rate and rhythm. ABDOMEN: Soft, no tenderness , guarding or rigidity EXTREMITIES: No edema of feet. SKIN: No rash, no masses palpable. NEUROLOGICAL: The patient is awake, but nonverbal orientation could not be determined Results CBC & Chem 7: 03/23/20 03:24 03/23/20 22:05 Labs: Abnormal Lab Results - Last 24 Hours (Table) 03/22/20 03/22/20 03/23/20 Range/Units 22:04 23:15 00:23 WBC (3.8-10.6) k/uL Neutrophils # (1.3-7.7) k/uL Lymphocytes # (1.0-4.8) k/uL APTT (22.0-30.0) sec D-Dimer (<0.60) mg/L FEU Sodium (137-145) mmol/L Potassium (3.5-5.1) mmol/L Chloride (98-107) mmol/L Carbon Dioxide (22-30) mmol/L BUN (9-20) mg/dL Creatinine (0.66-1.25) mg/dL Glucose (74-99) mg/dL POC Glucose (mg/dL) 195 H 182 H 155 H (75-99) mg/dL Osmolality (280-301) mosm/kg Calcium (8.4-10.2) mg/dL Phosphorus (2.5-4.5) mg/dL Total Protein (6.3-8.2) g/dL Albumin (3.5-5.0) g/dL Procalcitonin (0.02-0.09) ng/mL Urine Protein (Negative) Urine Glucose (UA) (Negative) Urine Ketones (Negative) Urine Blood (Negative) Urine WBC Clumps (None) /hpf Uric Acid Crystals (None) /hpf Urine Bacteria (None) /hpf Urine Mucus (None) /hpf 03/23/20 03/23/20 03/23/20 Range/Units 00:33 00:55 02:02 WBC (3.8-10.6) k/uL Neutrophils # (1.3-7.7) k/uL Lymphocytes # (1.0-4.8) k/uL APTT (22.0-30.0) sec D-Dimer (<0.60) mg/L FEU Sodium 148 H (137-145) mmol/L Potassium (3.5-5.1) mmol/L Chloride 123 H (98-107) mmol/L Carbon Dioxide 13 L (22-30) mmol/L BUN 62 H (9-20) mg/dL Creatinine 2.41 H (0.66-1.25) mg/dL Glucose 166 H (74-99) mg/dL POC Glucose (mg/dL) 155 H 179 H (75-99) mg/dL Osmolality (280-301) mosm/kg Calcium (8.4-10.2) mg/dL Phosphorus 1.1 L (2.5-4.5) mg/dL Total Protein (6.3-8.2) g/dL Albumin (3.5-5.0) g/dL Procalcitonin (0.02-0.09) ng/mL Urine Protein (Negative) Urine Glucose (UA) (Negative) Urine Ketones (Negative) Urine Blood (Negative) Urine WBC Clumps (None) /hpf Uric Acid Crystals (None) /hpf Urine Bacteria (None) /hpf Urine Mucus (None) /hpf 03/23/20 03/23/20 03/23/20 Range/Units 03:07 03:24 03:24 WBC 12.9 H (3.8-10.6) k/uL Neutrophils # 11.4 H (1.3-7.7) k/uL Lymphocytes # 0.6 L (1.0-4.8) k/uL APTT (22.0-30.0) sec D-Dimer (<0.60) mg/L FEU Sodium 149 H (137-145) mmol/L Potassium 3.4 L (3.5-5.1) mmol/L Chloride 124 H (98-107) mmol/L Carbon Dioxide 14 L (22-30) mmol/L BUN 60 H (9-20) mg/dL Creatinine 2.16 H (0.66-1.25) mg/dL Glucose 129 H (74-99) mg/dL POC Glucose (mg/dL) 134 H (75-99) mg/dL Osmolality (280-301) mosm/kg Calcium 8.1 L (8.4-10.2) mg/dL Phosphorus 0.6 L* (2.5-4.5) mg/dL Total Protein 5.8 L (6.3-8.2) g/dL Albumin 2.8 L (3.5-5.0) g/dL Procalcitonin (0.02-0.09) ng/mL Urine Protein (Negative) Urine Glucose (UA) (Negative) Urine Ketones (Negative) Urine Blood (Negative) Urine WBC Clumps (None) /hpf Uric Acid Crystals (None) /hpf Urine Bacteria (None) /hpf Urine Mucus (None) /hpf 03/23/20 03/23/20 03/23/20 Range/Units 03:24 03:24 03:24 WBC (3.8-10.6) k/uL Neutrophils # (1.3-7.7) k/uL Lymphocytes # (1.0-4.8) k/uL APTT 19.1 L (22.0-30.0) sec D-Dimer 1.90 H (<0.60) mg/L FEU Sodium (137-145) mmol/L Potassium (3.5-5.1) mmol/L Chloride (98-107) mmol/L Carbon Dioxide (22-30) mmol/L BUN (9-20) mg/dL Creatinine (0.66-1.25) mg/dL Glucose (74-99) mg/dL POC Glucose (mg/dL) (75-99) mg/dL Osmolality 340 H* (280-301) mosm/kg Calcium (8.4-10.2) mg/dL Phosphorus (2.5-4.5) mg/dL Total Protein (6.3-8.2) g/dL Albumin (3.5-5.0) g/dL Procalcitonin 0.52 H (0.02-0.09) ng/mL Urine Protein (Negative) Urine Glucose (UA) (Negative) Urine Ketones (Negative) Urine Blood (Negative) Urine WBC Clumps (None) /hpf Uric Acid Crystals (None) /hpf Urine Bacteria (None) /hpf Urine Mucus (None) /hpf 03/23/20 03/23/20 03/23/20 Range/Units 04:02 05:13 06:00 WBC (3.8-10.6) k/uL Neutrophils # (1.3-7.7) k/uL Lymphocytes # (1.0-4.8) k/uL APTT (22.0-30.0) sec D-Dimer (<0.60) mg/L FEU Sodium (137-145) mmol/L Potassium (3.5-5.1) mmol/L Chloride (98-107) mmol/L Carbon Dioxide (22-30) mmol/L BUN (9-20) mg/dL Creatinine (0.66-1.25) mg/dL Glucose (74-99) mg/dL POC Glucose (mg/dL) 139 H 115 H (75-99) mg/dL Osmolality (280-301) mosm/kg Calcium (8.4-10.2) mg/dL Phosphorus (2.5-4.5) mg/dL Total Protein (6.3-8.2) g/dL Albumin (3.5-5.0) g/dL Procalcitonin (0.02-0.09) ng/mL Urine Protein Trace H (Negative) Urine Glucose (UA) 2+ H (Negative) Urine Ketones 1+ H (Negative) Urine Blood Moderate H (Negative) Urine WBC Clumps Rare H (None) /hpf Uric Acid Crystals Few H (None) /hpf Urine Bacteria Rare H (None) /hpf Urine Mucus Rare H (None) /hpf 03/23/20 03/23/20 03/23/20 Range/Units 06:01 06:50 08:44 WBC (3.8-10.6) k/uL Neutrophils # (1.3-7.7) k/uL Lymphocytes # (1.0-4.8) k/uL APTT (22.0-30.0) sec D-Dimer (<0.60) mg/L FEU Sodium (137-145) mmol/L Potassium (3.5-5.1) mmol/L Chloride (98-107) mmol/L Carbon Dioxide (22-30) mmol/L BUN (9-20) mg/dL Creatinine (0.66-1.25) mg/dL Glucose (74-99) mg/dL POC Glucose (mg/dL) 105 H 111 H 127 H (75-99) mg/dL Osmolality (280-301) mosm/kg Calcium (8.4-10.2) mg/dL Phosphorus (2.5-4.5) mg/dL Total Protein (6.3-8.2) g/dL Albumin (3.5-5.0) g/dL Procalcitonin (0.02-0.09) ng/mL Urine Protein (Negative) Urine Glucose (UA) (Negative) Urine Ketones (Negative) Urine Blood (Negative) Urine WBC Clumps (None) /hpf Uric Acid Crystals (None) /hpf Urine Bacteria (None) /hpf Urine Mucus (None) /hpf 03/23/20 03/23/20 03/23/20 Range/Units 09:47 11:53 12:32 WBC (3.8-10.6) k/uL Neutrophils # (1.3-7.7) k/uL Lymphocytes # (1.0-4.8) k/uL APTT (22.0-30.0) sec D-Dimer (<0.60) mg/L FEU Sodium 153 H (137-145) mmol/L Potassium (3.5-5.1) mmol/L Chloride 121 H (98-107) mmol/L Carbon Dioxide 18 L (22-30) mmol/L BUN 49 H (9-20) mg/dL Creatinine 1.75 H (0.66-1.25) mg/dL Glucose 194 H (74-99) mg/dL POC Glucose (mg/dL) 135 H 223 H (75-99) mg/dL Osmolality (280-301) mosm/kg Calcium 7.7 L (8.4-10.2) mg/dL Phosphorus (2.5-4.5) mg/dL Total Protein 5.7 L (6.3-8.2) g/dL Albumin 2.8 L (3.5-5.0) g/dL Procalcitonin (0.02-0.09) ng/mL Urine Protein (Negative) Urine Glucose (UA) (Negative) Urine Ketones (Negative) Urine Blood (Negative) Urine WBC Clumps (None) /hpf Uric Acid Crystals (None) /hpf Urine Bacteria (None) /hpf Urine Mucus (None) /hpf 03/23/20 03/23/20 03/23/20 Range/Units 14:26 15:49 17:51 WBC (3.8-10.6) k/uL Neutrophils # (1.3-7.7) k/uL Lymphocytes # (1.0-4.8) k/uL APTT (22.0-30.0) sec D-Dimer (<0.60) mg/L FEU Sodium (137-145) mmol/L Potassium (3.5-5.1) mmol/L Chloride (98-107) mmol/L Carbon Dioxide (22-30) mmol/L BUN (9-20) mg/dL Creatinine (0.66-1.25) mg/dL Glucose (74-99) mg/dL POC Glucose (mg/dL) 252 H 299 H 310 H (75-99) mg/dL Osmolality (280-301) mosm/kg Calcium (8.4-10.2) mg/dL Phosphorus (2.5-4.5) mg/dL Total Protein (6.3-8.2) g/dL Albumin (3.5-5.0) g/dL Procalcitonin (0.02-0.09) ng/mL Urine Protein (Negative) Urine Glucose (UA) (Negative) Urine Ketones (Negative) Urine Blood (Negative) Urine WBC Clumps (None) /hpf Uric Acid Crystals (None) /hpf Urine Bacteria (None) /hpf Urine Mucus (None) /hpf 03/23/20 03/23/20 03/23/20 Range/Units 19:05 20:29 21:11 WBC (3.8-10.6) k/uL Neutrophils # (1.3-7.7) k/uL Lymphocytes # (1.0-4.8) k/uL APTT (22.0-30.0) sec D-Dimer (<0.60) mg/L FEU Sodium (137-145) mmol/L Potassium (3.5-5.1) mmol/L Chloride (98-107) mmol/L Carbon Dioxide (22-30) mmol/L BUN (9-20) mg/dL Creatinine (0.66-1.25) mg/dL Glucose (74-99) mg/dL POC Glucose (mg/dL) 296 H 287 H 189 H (75-99) mg/dL Osmolality (280-301) mosm/kg Calcium (8.4-10.2) mg/dL Phosphorus (2.5-4.5) mg/dL Total Protein (6.3-8.2) g/dL Albumin (3.5-5.0) g/dL Procalcitonin (0.02-0.09) ng/mL Urine Protein (Negative) Urine Glucose (UA) (Negative) Urine Ketones (Negative) Urine Blood (Negative) Urine WBC Clumps (None) /hpf Uric Acid Crystals (None) /hpf Urine Bacteria (None) /hpf Urine Mucus (None) /hpf Assessment and Plan Assessment: -patient presented to hospital with sepsis in this patient did have hypothermia tachycardia elevated white count predominantly with mental status changes with concern for possible encephalitis versus meningitis unfortunately LP could not be completed patient also have a positive Covid test and chest x-ray showing patchy infiltrate no evidence of any abdominal tenderness or lower extremity cellulitis (1) Sepsis Current Visit: Yes Status: Acute Code(s): A41.9 - SEPSIS, UNSPECIFIED ORGANISM SNOMED Code(s): 45306139 (2) COVID-19 Current Visit: Yes Status: Acute Code(s): U07.1 - COVID-19 SNOMED Code(s): 635918996 Plan: 1-we will obtain LP CSF should be sent for cell count differential glucose protein and HSV DNA by PCR 2-patient continue with current broad-spectrum antibiotics and antiviral We will follow on clinical condition and cultures to further adjust medication if needed Thank you for this consultation we will follow the patient along with you Time with Patient: Greater than 30
[2020-03-24] MEDS ORDERED: DEXTROSE 5% IN WATER 1,000 ML with SODIUM BICARB (1 MEQ/ML) 50 ML IV SCH ×2
[2020-03-24] MEDS: AMPICILLIN 2,000 MG in SODIUM CHLORIDE 0.9% 100 ML IVPB SCH ×3 (00:12→15:51)
[2020-03-24] MEDS: POTASSIUM CHLORIDE 10 MEQ in WATER FOR INJECTION 1 100ML.BAG IVPB SCH ×7 (00:12→10:50)
[2020-03-24] MEDS: HALOPERIDOL LACTATE 5 MG/ML 1 ML VIAL IVP PRN ×5 (00:13→22:30)
[2020-03-24 00:23] LABS: Glucose,Whole Blood 154 mg/dL (75-99)
[2020-03-24] MEDS: DEXTROSE 5% IN WATER 1,000 ML IV SCH ×3 (01:24→20:19)
[2020-03-24 01:28] LABS: Glucose,Whole Blood 132 mg/dL (75-99)
[2020-03-24 02:31] LABS: Glucose,Whole Blood 111 mg/dL (75-99)
[2020-03-24 03:14] LABS: Glucose,Whole Blood 140 mg/dL (75-99)
[2020-03-24 04:02] LABS: Glucose,Whole Blood 155 mg/dL (75-99)
[2020-03-24 04:24] LABS: Basophils % (A) 0 %; Eosinophils % (A) 0 %; HCT 42.7 % (39.0-53.0); HGB 14.6 gm/dL (13.0-17.5); Lymphocytes # (A) 0.9 k/uL (1.0-4.8); Lymphocytes % (A) 8 %; MCH 29.2 pg (25.0-35.0); MCHC 34.3 g/dL (31.0-37.0); MCV 85.3 fL (80.0-100.0); Mean Platelet Volume 7.2; Monocytes # (A) 0.5 k/uL (0-1.0); Monocytes % (A) 5 %; Neutrophils # (A) 9.1 k/uL (1.3-7.7); Neutrophils % (A) 85 %; Platelet Count 204 k/uL (150-450); RDW 13.1 % (11.5-15.5); WBC 10.8 k/uL (3.8-10.6)
[2020-03-24 04:36] LABS: Albumin 2.8 g/dL (3.5-5.0); Calcium 7.6 mg/dL (8.4-10.2); Potassium 3.4 mmol/L (3.5-5.1); Total Bilirubin 0.7 mg/dL (0.2-1.3); Total Protein 5.6 g/dL (6.3-8.2)
[2020-03-24 05:18] LABS: Glucose,Whole Blood 172 mg/dL (75-99)
[2020-03-24 05:55] LABS: Glucose,Whole Blood 160 mg/dL (75-99)
[2020-03-24] MEDS: INSULIN REGULAR 100 UNIT in SODIUM CHLORIDE 0.9% 100 ML IV SCH (06:34)
[2020-03-24 07:12] LABS: Glucose,Whole Blood 155 mg/dL (75-99)
--- NOTE | 2020-03-24 08:14 | P.PN ---
Subjective Progress Note Date: 03/24/20 This is a 59-year-old male patient who came in to the [facility] yesterday be cause of an altered mental status. The patient started getting sick around Thanksgiving time. His condition was progressively getting worse. He has some mild cough and he was progressively getting more fatigued and sized. His condition progressively got worse over the past 10 days as the patient was taken minimal amount of oral intake and ultimately decompensated and he came into the emergency department yesterday having significant altered mentation and he was extremely lethargic. He was unable to provide any history. The patient was seen in the emergency department. He was on room air oxygen with a pulse ox of 99%. Hemodynamically parameters were stable. He was hypothermic with a temperature of 94. Nevertheless, his blood work was profoundly abnormal. Acute kidney injury. Again of 63 with a creatinine of 2.7. He had +2 ketones in his urine. The patient had a sodium level of 143, serum bicarbonate less than 5, potassium level was at 4.7, glucose was at 309, the patient had a calcium of 8.1, magnesium of 2.9, phosphorus from this morning's of 0.6, liver function tests were within normal limits, LDH was 1195, troponin was negative, CRP was 49, and the lactic acid level was at 1. The patient has a positive coronavirus COVID 19 PCR. Overnight, the patient was brought into the intensive care unit. He . Remains quite restless and agitated. This morning, he is going to be started on Precedex to control his agitation. He received 1.5 L in the emergency department, and he received fluids here in the ICU in the form of D5 half-normal saline with potassium and D5 sodium bicarbonate with 50 mEq of sodium bicarbonate running at 100 mL an hour. This morning, I switched his IV fluids to D5 with 100 mEq of sodium bicarbonate at 50 ML an Hour. Sodium Level Is at 1 49 from Today. Serum Bicarb Is up to 14. His Creatinine Is down to 2.1. Is Producing Adequate Amount of Urine Output. He Is Quite Restless and He Will Be Started on Precedex. Sinus rhythm he is in a sinus rhythm. He is on Precedex running at 0.4 g per KG per minute. He remains on room air oxygen. He is also on insulin drip at 0.2 units per hour for protocol. The chest x-ray showing bilateral pulmonary infiltrates consistent with Covid 19 related pneumonia. CAT scan of the brain done in the emergency was within normal limits. Today's evaluation of 03/24/2020, the patient remains encephalopathic. He is on Precedex at 0.07 g per KG per hour. Control his agitation. He is able to say a few words. He is unable to hold a conversation. He is moving all 4 extremities without any limitation. He grimaces to painful stimulation. Note that his acidosis is resolved and serum bicarbonate of 23. The patient's sodium level is at 152. He still on a bicarb infusion with D5 and 50 mEq of sodium bicarbonate running at 50 mL an hour. He is also on D5 water at the rate of 100 mL an hour. He is producing adequate amount of urine output. Sodium level is at 152. Creatinine is down to 1.6. The patient was seen by infectious disease and neurology. The patient is on broad-spectrum antibiotics. The patient is on ampicillin, Rocephin, acyclovir and the patient is also taking Decadron as the patient was diagnosed having a covid 19 infection. Objective - Vital Signs Vital signs: Vital Signs Temp 98.1 F 03/24/20 06:44 Pulse 114 H 03/24/20 07:00 Resp 21 03/24/20 07:00 BP 119/92 03/24/20 07:00 Pulse Ox 98 03/24/20 07:00 Intake & Output 03/23/20 03/24/20 03/24/20 18:59 06:59 18:59 Intake Total 2806.926 2640.844 1305 Output Total 3405 1905 185 Balance -598.074 965.192 4724 Weight 67.5 kg Intake: IV 2800 2600 1305 Acyclovir Sodium 500 mg 100 100 In Sodium Chloride 0.9% 100 ml @ 100 mls/hr IVPB Q12HR [facility] Rx#:[id number] Ampicillin 2,000 mg In 100 100 Sodium Chloride 0.9% 100 ml @ 200 mls/hr IVPB Q8HR [facility] Rx#:[id number] Dextrose 5% in Water 1, 600 1105 000 ml @ 100 mls/hr IV . Q10H [facility] Rx#:[id number] Dextrose 5% in Water 1, 1600 450 000 ml @ 100 mls/hr IV . [id number] [facility] with Sodium Bicarb (1 Meq/ml) 150 ml Rx#:[id number] Dextrose 5% in Water 1, 250 250 000 ml @ 50 mls/hr IV . Q20H [facility] Rx#:[id number] Dextrose 5% in Water 1, 300 100 000 ml @ 50 mls/hr IV . Q21H [facility] with Sodium Bicarb (1 Meq/ml) 50 ml Rx#:[id number] Potassium Phosphate 10 750 500 100 mmol In Sodium Chloride 0 .9% 250 ml @ 125 mls/hr IV Q2H [facility] Rx#:[id number] Vancomycin 1,250 mg In 250 Sodium Chloride 0.9% 250 ml @ 125 mls/hr IVPB HS [facility] Rx#:[id number] cefTRIAXone 1 gm In 50 Sodium Chloride 0.9% 50 ml @ 100 mls/hr IVPB Q12HR [facility] Rx#:[id number] Intake, IV Titration 6.926 40.844 Amount Dexmedetomidine/0.9% NaCl 1.36 (Pmx) 400 mcg In Empty Bag 1 bag @ Titrate IV . Q0M [facility] Rx#:[id number] Insulin Regular 100 unit 5.566 40.844 In Sodium Chloride 0.9% 100 ml @ 0.1 UNITS/KG/HR 6.872 mls/hr IV .[id number] [facility] Rx#:[id number] Output: Urine 3405 1905 185 Other: Voiding Method Indwelling Catheter Indwelling Catheter Indwelling Catheter - Exam the patient is unable to Yeung catheterization. His restless in bed. He is not aware of his location. His speech is garbled. Nevertheless, the patient is moving all 4 extremities without any limitation. No neck stiffness. Head exam was generally normal. There was no scleral icterus or corneal arcus. Mucous membranes were moist. Neck was supple and without jugular venous distension, thyromegaly, or carotid bruits. Carotids were easily palpable bilaterally. There was no adenopathy. Lungs sounds are diminished in the suspected lung bases bilaterally Cardiac exam revealed the PMI to be normally situated and sized. The rhythm was regular and no extrasystoles were noted during several minutes of auscultation. The first and second heart sounds were normal and physiologic splitting of the second heart sound was noted. There were no murmurs, rubs, clicks, or gallops.] Abdominal exam revealed normal bowel sounds. The abdomen was soft, non-tender, and without masses, organomegaly, or appreciable enlargement of the abdominal aorta. Examination of the extremities revealed easily palpable radial, femoral and pedal pulses. There was no cyanosis, clubbing or edema. Examination of the skin revealed no evidence of significant rashes, suspicious appearing nevi or other concerning lesions. Neurologically his exam is nonfocal. Pupils are equal and reactive to light. No facial asymmetry. Reflexes are symmetrical. - Labs CBC & Chem 7: 03/24/20 03:55 03/24/20 03:55 Labs: Abnormal Lab Results - Last 24 Hours (Table) 03/23/20 03/23/20 03/23/20 Range/Units 03:24 03:24 08:44 WBC (3.8-10.6) k/uL Neutrophils # (1.3-7.7) k/uL Lymphocytes # (1.0-4.8) k/uL Sodium (137-145) mmol/L Potassium (3.5-5.1) mmol/L Chloride (98-107) mmol/L Carbon Dioxide (22-30) mmol/L BUN (9-20) mg/dL Creatinine (0.66-1.25) mg/dL Glucose (74-99) mg/dL POC Glucose (mg/dL) 127 H (75-99) mg/dL Osmolality 340 H* (280-301) mosm/kg Calcium (8.4-10.2) mg/dL Total Protein (6.3-8.2) g/dL Albumin (3.5-5.0) g/dL Procalcitonin 0.52 H (0.02-0.09) ng/mL 03/23/20 03/23/20 03/23/20 Range/Units 09:47 11:53 12:32 WBC (3.8-10.6) k/uL Neutrophils # (1.3-7.7) k/uL Lymphocytes # (1.0-4.8) k/uL Sodium 153 H (137-145) mmol/L Potassium (3.5-5.1) mmol/L Chloride 121 H (98-107) mmol/L Carbon Dioxide 18 L (22-30) mmol/L BUN 49 H (9-20) mg/dL Creatinine 1.75 H (0.66-1.25) mg/dL Glucose 194 H (74-99) mg/dL POC Glucose (mg/dL) 135 H 223 H (75-99) mg/dL Osmolality (280-301) mosm/kg Calcium 7.7 L (8.4-10.2) mg/dL Total Protein 5.7 L (6.3-8.2) g/dL Albumin 2.8 L (3.5-5.0) g/dL Procalcitonin (0.02-0.09) ng/mL 03/23/20 03/23/20 03/23/20 Range/Units 14:26 15:49 17:51 WBC (3.8-10.6) k/uL Neutrophils # (1.3-7.7) k/uL Lymphocytes # (1.0-4.8) k/uL Sodium (137-145) mmol/L Potassium (3.5-5.1) mmol/L Chloride (98-107) mmol/L Carbon Dioxide (22-30) mmol/L BUN (9-20) mg/dL Creatinine (0.66-1.25) mg/dL Glucose (74-99) mg/dL POC Glucose (mg/dL) 252 H 299 H 310 H (75-99) mg/dL Osmolality (280-301) mosm/kg Calcium (8.4-10.2) mg/dL Total Protein (6.3-8.2) g/dL Albumin (3.5-5.0) g/dL Procalcitonin (0.02-0.09) ng/mL 03/23/20 03/23/20 03/23/20 Range/Units 19:05 20:26 20:29 WBC (3.8-10.6) k/uL Neutrophils # (1.3-7.7) k/uL Lymphocytes # (1.0-4.8) k/uL Sodium (137-145) mmol/L Potassium 8.4 H* (3.5-5.1) mmol/L Chloride 112 H (98-107) mmol/L Carbon Dioxide 20 L (22-30) mmol/L BUN 41 H (9-20) mg/dL Creatinine 1.42 H (0.66-1.25) mg/dL Glucose 562 H* (74-99) mg/dL POC Glucose (mg/dL) 296 H 287 H (75-99) mg/dL Osmolality (280-301) mosm/kg Calcium 6.7 L (8.4-10.2) mg/dL Total Protein (6.3-8.2) g/dL Albumin (3.5-5.0) g/dL Procalcitonin (0.02-0.09) ng/mL 03/23/20 03/23/20 03/23/20 Range/Units 21:11 22:05 22:19 WBC (3.8-10.6) k/uL Neutrophils # (1.3-7.7) k/uL Lymphocytes # (1.0-4.8) k/uL Sodium 154 H (137-145) mmol/L Potassium 3.4 L (3.5-5.1) mmol/L Chloride 120 H (98-107) mmol/L Carbon Dioxide (22-30) mmol/L BUN 45 H (9-20) mg/dL Creatinine 1.62 H (0.66-1.25) mg/dL Glucose 158 H (74-99) mg/dL POC Glucose (mg/dL) 189 H 152 H (75-99) mg/dL Osmolality (280-301) mosm/kg Calcium 7.7 L (8.4-10.2) mg/dL Total Protein 6.0 L (6.3-8.2) g/dL Albumin 3.0 L (3.5-5.0) g/dL Procalcitonin (0.02-0.09) ng/mL 03/23/20 03/24/20 03/24/20 Range/Units 22:58 00:21 01:27 WBC (3.8-10.6) k/uL Neutrophils # (1.3-7.7) k/uL Lymphocytes # (1.0-4.8) k/uL Sodium (137-145) mmol/L Potassium (3.5-5.1) mmol/L Chloride (98-107) mmol/L Carbon Dioxide (22-30) mmol/L BUN (9-20) mg/dL Creatinine (0.66-1.25) mg/dL Glucose (74-99) mg/dL POC Glucose (mg/dL) 130 H 154 H 132 H (75-99) mg/dL Osmolality (280-301) mosm/kg Calcium (8.4-10.2) mg/dL Total Protein (6.3-8.2) g/dL Albumin (3.5-5.0) g/dL Procalcitonin (0.02-0.09) ng/mL 03/24/20 03/24/20 03/24/20 Range/Units 02:30 03:13 03:55 WBC 10.8 H (3.8-10.6) k/uL Neutrophils # 9.1 H (1.3-7.7) k/uL Lymphocytes # 0.9 L (1.0-4.8) k/uL Sodium (137-145) mmol/L Potassium (3.5-5.1) mmol/L Chloride (98-107) mmol/L Carbon Dioxide (22-30) mmol/L BUN (9-20) mg/dL Creatinine (0.66-1.25) mg/dL Glucose (74-99) mg/dL POC Glucose (mg/dL) 111 H 140 H (75-99) mg/dL Osmolality (280-301) mosm/kg Calcium (8.4-10.2) mg/dL Total Protein (6.3-8.2) g/dL Albumin (3.5-5.0) g/dL Procalcitonin (0.02-0.09) ng/mL 03/24/20 03/24/20 03/24/20 Range/Units 03:55 04:00 05:16 WBC (3.8-10.6) k/uL Neutrophils # (1.3-7.7) k/uL Lymphocytes # (1.0-4.8) k/uL Sodium 152 H (137-145) mmol/L Potassium 3.4 L (3.5-5.1) mmol/L Chloride 118 H (98-107) mmol/L Carbon Dioxide (22-30) mmol/L BUN 38 H (9-20) mg/dL Creatinine 1.64 H (0.66-1.25) mg/dL Glucose 173 H (74-99) mg/dL POC Glucose (mg/dL) 155 H 172 H (75-99) mg/dL Osmolality (280-301) mosm/kg Calcium 7.6 L (8.4-10.2) mg/dL Total Protein 5.6 L (6.3-8.2) g/dL Albumin 2.8 L (3.5-5.0) g/dL Procalcitonin (0.02-0.09) ng/mL 03/24/20 03/24/20 Range/Units 05:53 07:11 WBC (3.8-10.6) k/uL Neutrophils # (1.3-7.7) k/uL Lymphocytes # (1.0-4.8) k/uL Sodium (137-145) mmol/L Potassium (3.5-5.1) mmol/L Chloride (98-107) mmol/L Carbon Dioxide (22-30) mmol/L BUN (9-20) mg/dL Creatinine (0.66-1.25) mg/dL Glucose (74-99) mg/dL POC Glucose (mg/dL) 160 H 155 H (75-99) mg/dL Osmolality (280-301) mosm/kg Calcium (8.4-10.2) mg/dL Total Protein (6.3-8.2) g/dL Albumin (3.5-5.0) g/dL Procalcitonin (0.02-0.09) ng/mL Microbiology - Last 24 Hours (Table) 03/23/20 17:50 Urine Culture - Preliminary Urine,Catheterized 03/22/20 21:21 Blood Culture - Preliminary Blood No Growth after 24 hours Assessment and Plan Plan: 1 acute COVID 19 infection/pneumonia. No significant respiratory distress. Nevertheless, the patient has better pulmonary infiltrates and the patient has constitutional symptoms and altered mentation and severe dehydration and acute kidney injury, PROBABLY complications of this viral infection. 2 acute kidney injury, improving creatinine is down to 1.6 3 altered mental status with episodic encephalopathy, likely secondary to above, also consider metabolic encephalopathy or viral encephalopathy. Patient is g oing to have an EEG and lumbar puncture today. 4 severe anion gap metabolic acidosis, recovered and serum bicarbonate normalized 5 diabetes mellitus maintained on oral hypoglycemics on outpatient basis, currently on insulin drip at 2 units an hour and the patient is a 60 D5 water. 6 hyperlipidemia 7 hypertension Plan Discontinue the bicarb infusion Discontinue the insulin drip and switch this patient to sign scale coverage every 4 hours with NovoLog. Renal function is improving Continue IV Decadron Continue the rest of the antibiotic coverage, pending a lumbar puncture Ultrasound the kidneys were within normal limits Patient was seen by neurology, ID and nephrology Continue Precedex for agitation and altered mentation. Continue the combination of acyclovir, ampicillin and Rocephin for another 24 hours We'll continue to follow.
[2020-03-24 08:21] LABS: Glucose,Whole Blood 137 mg/dL (75-99)
[2020-03-24] MEDS: FAMOTIDINE 20 MG/2 ML VIAL IV SCH (08:36)
[2020-03-24] MEDS: PANTOPRAZOLE 40 MG/10 ML VIAL IV SCH (08:37)
[2020-03-24] MEDS: ACYCLOVIR SODIUM 500 MG in SODIUM CHLORIDE 0.9% 100 ML IVPB SCH ×2 (08:37→20:18)
[2020-03-24] MEDS: ENOXAPARIN 40 MG/0.4 ML SYRINGE SQ SCH (08:37)
[2020-03-24] MEDS: DEXAMETHASONE SOD PHOSPHATE 10 MG/ML 1 ML VIAL IV SCH (08:38)
[2020-03-24] MEDS: INSULIN ASPART (NovoLOG) 100 UNIT/ML VIAL SQ SCH ×4 (08:38→20:42)
[2020-03-24] MEDS: INSULIN DETEMIR (LEVEMIR) 100 UNIT/ML SYR SQ SCH (08:46)
--- NOTE | 2020-03-24 09:36 | P.PN ---
Subjective Progress Note Date: 03/24/20 Patient was seen at bedside and he continues to be altered. Per the patient nurse there is no improvement and the patient condition. Per the patient ICU attending he stated patient is agitated. The patient is scheduled for a lumbar puncture and EEG later today. Chest x-ray on 03/23/2020 was reported as patchy bilateral peripheral infiltrate. Correlate for atypical pneumonia. Objective - Vital Signs Vital signs: Vital Signs Temp 98.6 F 03/24/20 08:00 Pulse 111 H 03/24/20 08:00 Resp 24 03/24/20 08:00 BP 129/98 03/24/20 08:00 Pulse Ox 96 03/24/20 08:00 Intake & Output 03/23/20 03/24/20 03/24/20 18:59 06:59 18:59 Intake Total 2806.926 2640.844 1305 Output Total 3405 1905 185 Balance -598.074 844.349 7008 Weight 67.5 kg Intake: IV 2800 2600 1305 Acyclovir Sodium 500 mg 100 100 In Sodium Chloride 0.9% 100 ml @ 100 mls/hr IVPB Q12HR [facility] Rx#:[id number] Ampicillin 2,000 mg In 100 100 Sodium Chloride 0.9% 100 ml @ 200 mls/hr IVPB Q8HR [facility] Rx#:[id number] Dextrose 5% in Water 1, 600 1105 000 ml @ 100 mls/hr IV . Q10H [facility] Rx#:[id number] Dextrose 5% in Water 1, 1600 450 000 ml @ 100 mls/hr IV . [id number] [facility] with Sodium Bicarb (1 Meq/ml) 150 ml Rx#:[id number] Dextrose 5% in Water 1, 250 250 000 ml @ 50 mls/hr IV . Q20H [facility] Rx#:[id number] Dextrose 5% in Water 1, 300 100 000 ml @ 50 mls/hr IV . Q21H [facility] with Sodium Bicarb (1 Meq/ml) 50 ml Rx#:[id number] Potassium Phosphate 10 750 500 100 mmol In Sodium Chloride 0 .9% 250 ml @ 125 mls/hr IV Q2H [facility] Rx#:[id number] Vancomycin 1,250 mg In 250 Sodium Chloride 0.9% 250 ml @ 125 mls/hr IVPB HS [facility] Rx#:[id number] cefTRIAXone 1 gm In 50 Sodium Chloride 0.9% 50 ml @ 100 mls/hr IVPB Q12HR [facility] Rx#:[id number] Intake, IV Titration 6.926 40.844 Amount Dexmedetomidine/0.9% NaCl 1.36 (Pmx) 400 mcg In Empty Bag 1 bag @ Titrate IV . Q0M [facility] Rx#:[id number] Insulin Regular 100 unit 5.566 40.844 In Sodium Chloride 0.9% 100 ml @ 0.1 UNITS/KG/HR 6.872 mls/hr IV .[id number] [facility] Rx#:[id number] Output: Urine 3405 1905 185 Other: Voiding Method Indwelling Catheter Indwelling Catheter Indwelling Catheter - Exam GENERAL: The patient is lying in bed and seemed to be restless. . NEUROLOGICAL: Higher mental function: The patient is awake but is mumbling. Unable to respond to questions. He kept on saying "what, what". Cranial nerves: The primary gaze is Center bilaterally. The pupils are round, equal (3-4mm) and reactive to light. Visual oneil could not be assessed because of cooperation. Extraocular movement is he was able to track me thought the room. No facial weakness noted bilaterally. Cannot assess the rest of the cranial nerves because of the patient the condition. Motor: Gait is deferred because the patient condition. The strength is able to lift up all extremities above gravity and no focality is appreciated . Normal tone but decreased but mostly in the calves as well as the thighs. Cerebellum: Could not be assessed. Sensation: Light touch could not be assessed because of his cooperation about painful stimuli seems to be intact throughout. Reflexes (right/left): 2+ throughout. Plantars are upgoing bilaterally. - Labs CBC & Chem 7: 03/24/20 03:55 03/24/20 03:55 Labs: Abnormal Lab Results - Last 24 Hours (Table) 03/23/20 03/23/20 03/23/20 Range/Units 03:24 03:24 09:47 WBC (3.8-10.6) k/uL Neutrophils # (1.3-7.7) k/uL Lymphocytes # (1.0-4.8) k/uL Sodium (137-145) mmol/L Potassium (3.5-5.1) mmol/L Chloride (98-107) mmol/L Carbon Dioxide (22-30) mmol/L BUN (9-20) mg/dL Creatinine (0.66-1.25) mg/dL Glucose (74-99) mg/dL POC Glucose (mg/dL) 135 H (75-99) mg/dL Osmolality 340 H* (280-301) mosm/kg Calcium (8.4-10.2) mg/dL Total Protein (6.3-8.2) g/dL Albumin (3.5-5.0) g/dL Procalcitonin 0.52 H (0.02-0.09) ng/mL 03/23/20 03/23/20 03/23/20 Range/Units 11:53 12:32 14:26 WBC (3.8-10.6) k/uL Neutrophils # (1.3-7.7) k/uL Lymphocytes # (1.0-4.8) k/uL Sodium 153 H (137-145) mmol/L Potassium (3.5-5.1) mmol/L Chloride 121 H (98-107) mmol/L Carbon Dioxide 18 L (22-30) mmol/L BUN 49 H (9-20) mg/dL Creatinine 1.75 H (0.66-1.25) mg/dL Glucose 194 H (74-99) mg/dL POC Glucose (mg/dL) 223 H 252 H (75-99) mg/dL Osmolality (280-301) mosm/kg Calcium 7.7 L (8.4-10.2) mg/dL Total Protein 5.7 L (6.3-8.2) g/dL Albumin 2.8 L (3.5-5.0) g/dL Procalcitonin (0.02-0.09) ng/mL 03/23/20 03/23/20 03/23/20 Range/Units 15:49 17:51 19:05 WBC (3.8-10.6) k/uL Neutrophils # (1.3-7.7) k/uL Lymphocytes # (1.0-4.8) k/uL Sodium (137-145) mmol/L Potassium (3.5-5.1) mmol/L Chloride (98-107) mmol/L Carbon Dioxide (22-30) mmol/L BUN (9-20) mg/dL Creatinine (0.66-1.25) mg/dL Glucose (74-99) mg/dL POC Glucose (mg/dL) 299 H 310 H 296 H (75-99) mg/dL Osmolality (280-301) mosm/kg Calcium (8.4-10.2) mg/dL Total Protein (6.3-8.2) g/dL Albumin (3.5-5.0) g/dL Procalcitonin (0.02-0.09) ng/mL 03/23/20 03/23/20 03/23/20 Range/Units 20:26 20:29 21:11 WBC (3.8-10.6) k/uL Neutrophils # (1.3-7.7) k/uL Lymphocytes # (1.0-4.8) k/uL Sodium (137-145) mmol/L Potassium 8.4 H* (3.5-5.1) mmol/L Chloride 112 H (98-107) mmol/L Carbon Dioxide 20 L (22-30) mmol/L BUN 41 H (9-20) mg/dL Creatinine 1.42 H (0.66-1.25) mg/dL Glucose 562 H* (74-99) mg/dL POC Glucose (mg/dL) 287 H 189 H (75-99) mg/dL Osmolality (280-301) mosm/kg Calcium 6.7 L (8.4-10.2) mg/dL Total Protein (6.3-8.2) g/dL Albumin (3.5-5.0) g/dL Procalcitonin (0.02-0.09) ng/mL 03/23/20 03/23/20 03/23/20 Range/Units 22:05 22:19 22:58 WBC (3.8-10.6) k/uL Neutrophils # (1.3-7.7) k/uL Lymphocytes # (1.0-4.8) k/uL Sodium 154 H (137-145) mmol/L Potassium 3.4 L (3.5-5.1) mmol/L Chloride 120 H (98-107) mmol/L Carbon Dioxide (22-30) mmol/L BUN 45 H (9-20) mg/dL Creatinine 1.62 H (0.66-1.25) mg/dL Glucose 158 H (74-99) mg/dL POC Glucose (mg/dL) 152 H 130 H (75-99) mg/dL Osmolality (280-301) mosm/kg Calcium 7.7 L (8.4-10.2) mg/dL Total Protein 6.0 L (6.3-8.2) g/dL Albumin 3.0 L (3.5-5.0) g/dL Procalcitonin (0.02-0.09) ng/mL 03/24/20 03/24/20 03/24/20 Range/Units 00:21 01:27 02:30 WBC (3.8-10.6) k/uL Neutrophils # (1.3-7.7) k/uL Lymphocytes # (1.0-4.8) k/uL Sodium (137-145) mmol/L Potassium (3.5-5.1) mmol/L Chloride (98-107) mmol/L Carbon Dioxide (22-30) mmol/L BUN (9-20) mg/dL Creatinine (0.66-1.25) mg/dL Glucose (74-99) mg/dL POC Glucose (mg/dL) 154 H 132 H 111 H (75-99) mg/dL Osmolality (280-301) mosm/kg Calcium (8.4-10.2) mg/dL Total Protein (6.3-8.2) g/dL Albumin (3.5-5.0) g/dL Procalcitonin (0.02-0.09) ng/mL 03/24/20 03/24/20 03/24/20 Range/Units 03:13 03:55 03:55 WBC 10.8 H (3.8-10.6) k/uL Neutrophils # 9.1 H (1.3-7.7) k/uL Lymphocytes # 0.9 L (1.0-4.8) k/uL Sodium 152 H (137-145) mmol/L Potassium 3.4 L (3.5-5.1) mmol/L Chloride 118 H (98-107) mmol/L Carbon Dioxide (22-30) mmol/L BUN 38 H (9-20) mg/dL Creatinine 1.64 H (0.66-1.25) mg/dL Glucose 173 H (74-99) mg/dL POC Glucose (mg/dL) 140 H (75-99) mg/dL Osmolality (280-301) mosm/kg Calcium 7.6 L (8.4-10.2) mg/dL Total Protein 5.6 L (6.3-8.2) g/dL Albumin 2.8 L (3.5-5.0) g/dL Procalcitonin (0.02-0.09) ng/mL 03/24/20 03/24/20 03/24/20 Range/Units 04:00 05:16 05:53 WBC (3.8-10.6) k/uL Neutrophils # (1.3-7.7) k/uL Lymphocytes # (1.0-4.8) k/uL Sodium (137-145) mmol/L Potassium (3.5-5.1) mmol/L Chloride (98-107) mmol/L Carbon Dioxide (22-30) mmol/L BUN (9-20) mg/dL Creatinine (0.66-1.25) mg/dL Glucose (74-99) mg/dL POC Glucose (mg/dL) 155 H 172 H 160 H (75-99) mg/dL Osmolality (280-301) mosm/kg Calcium (8.4-10.2) mg/dL Total Protein (6.3-8.2) g/dL Albumin (3.5-5.0) g/dL Procalcitonin (0.02-0.09) ng/mL 03/24/20 03/24/20 Range/Units 07:11 08:20 WBC (3.8-10.6) k/uL Neutrophils # (1.3-7.7) k/uL Lymphocytes # (1.0-4.8) k/uL Sodium (137-145) mmol/L Potassium (3.5-5.1) mmol/L Chloride (98-107) mmol/L Carbon Dioxide (22-30) mmol/L BUN (9-20) mg/dL Creatinine (0.66-1.25) mg/dL Glucose (74-99) mg/dL POC Glucose (mg/dL) 155 H 137 H (75-99) mg/dL Osmolality (280-301) mosm/kg Calcium (8.4-10.2) mg/dL Total Protein (6.3-8.2) g/dL Albumin (3.5-5.0) g/dL Procalcitonin (0.02-0.09) ng/mL Microbiology - Last 24 Hours (Table) 03/23/20 17:50 Urine Culture - Preliminary Urine,Catheterized 03/22/20 21:21 Blood Culture - Preliminary Blood No Growth after 24 hours Assessment and Plan Assessment: * Altered mental status, likely due to toxic metabolic encephalopathy due to reasons mentioned below. * Patient admitted with severe acidosis, electrolyte imbalance and renal failure. Probable dehydration. * Acute kidney injury--improving. * Hypernatremia (last sodium is 152)---due to normal saline * COVID-19 infection with pneumonia. Plan: * Patient's mental status appears somewhat worse than the amount of metabolic dysfunction. * I ordered vitamin B12 and folate level. I also ordered ammonia level. * Recommend MRI of the brain without gadolinium especially with a acute kidney injury with the patient is stable to rule out any intracranial process not seen on CT head. * Pending EEG later today to rule out any seizure activity or any epileptiform discharges. * Pending lumbar puncture to rule out any intracranial infectious process. * The patient is on ceftriaxone 1 g every 12 hours, vancomycin, ampicillin and acyclovir. * Infection disease is consulted. We'll defer the antibiotic and antiviral management to the infection disease. * Regarding the patient pneumonitis from [place] 19 we'll defer the management t o the ICU team. * Medical management as per IM and ICU team. * The plan was discussed with ICU nurse. Time with Patient: Greater than 30
[2020-03-24] MEDS: THIAMINE 100 MG in SODIUM CHLORIDE 0.9% 50 ML IVPB SCH (10:51)
[2020-03-24] MEDS ORDERED: DEXMEDETOMIDINE/0.9% NACL(PMX) 400 MCG in EMPTY BAG 1 BAG IV SCH (11:00)
--- NOTE | 2020-03-24 11:02 | P.PN ---
Subjective Progress Note Date: 03/24/20 Pt continues to remain agitated even with max precedex gtt. No interval improvement despite improvement of metabolic processes. Suspect underlying neurological/infectious process. Objective - Vital Signs Vital signs: Vital Signs Temp 98.6 F 03/24/20 08:00 Pulse 90 03/24/20 10:00 Resp 19 03/24/20 10:00 BP 148/78 03/24/20 10:00 Pulse Ox 97 03/24/20 10:00 Intake & Output 03/23/20 03/24/20 03/24/20 18:59 06:59 18:59 Intake Total 2806.926 2640.844 1305 Output Total 3405 1905 185 Balance -598.074 577.809 3195 Weight 67.5 kg Intake: IV 2800 2600 1305 Acyclovir Sodium 500 mg 100 100 In Sodium Chloride 0.9% 100 ml @ 100 mls/hr IVPB Q12HR [facility] Rx#:[id number] Ampicillin 2,000 mg In 100 100 Sodium Chloride 0.9% 100 ml @ 200 mls/hr IVPB Q8HR [facility] Rx#:[id number] Dextrose 5% in Water 1, 600 1105 000 ml @ 100 mls/hr IV . Q10H [facility] Rx#:[id number] Dextrose 5% in Water 1, 1600 450 000 ml @ 100 mls/hr IV . [id number] [facility] with Sodium Bicarb (1 Meq/ml) 150 ml Rx#:[id number] Dextrose 5% in Water 1, 250 250 000 ml @ 50 mls/hr IV . Q20H [facility] Rx#:[id number] Dextrose 5% in Water 1, 300 100 000 ml @ 50 mls/hr IV . Q21H [facility] with Sodium Bicarb (1 Meq/ml) 50 ml Rx#:[id number] Potassium Phosphate 10 750 500 100 mmol In Sodium Chloride 0 .9% 250 ml @ 125 mls/hr IV Q2H [facility] Rx#:[id number] Vancomycin 1,250 mg In 250 Sodium Chloride 0.9% 250 ml @ 125 mls/hr IVPB HS [facility] Rx#:[id number] cefTRIAXone 1 gm In 50 Sodium Chloride 0.9% 50 ml @ 100 mls/hr IVPB Q12HR [facility] Rx#:[id number] Intake, IV Titration 6.926 40.844 Amount Dexmedetomidine/0.9% NaCl 1.36 (Pmx) 400 mcg In Empty Bag 1 bag @ Titrate IV . Q0M [facility] Rx#:[id number] Insulin Regular 100 unit 5.566 40.844 In Sodium Chloride 0.9% 100 ml @ 0.1 UNITS/KG/HR 6.872 mls/hr IV .[id number] [facility] Rx#:[id number] Output: Urine 3405 1905 185 Other: Voiding Method Indwelling Catheter Indwelling Catheter Indwelling Catheter - Exam Gen: awake, alert HEENT: normocephalic, atraumatic, good hearing acuity, moist mucous membranes Resp: good air exchange, breathing comfortably with no accessory muscle use CVS: good distal perfusion x 4, GI: soft, NTTP, ND : no SPT, no CVAT, garcia catheter is present MSK: no pitting edema, no clubbing Neuro: non-focal, moving all extremities Psych: cooperative, euthymic mood - Labs CBC & Chem 7: 03/24/20 03:55 03/24/20 03:55 Labs: Abnormal Lab Results - Last 24 Hours (Table) 03/23/20 03/23/20 03/23/20 Range/Units 03:24 03:24 11:53 WBC (3.8-10.6) k/uL Neutrophils # (1.3-7.7) k/uL Lymphocytes # (1.0-4.8) k/uL Sodium 153 H (137-145) mmol/L Potassium (3.5-5.1) mmol/L Chloride 121 H (98-107) mmol/L Carbon Dioxide 18 L (22-30) mmol/L BUN 49 H (9-20) mg/dL Creatinine 1.75 H (0.66-1.25) mg/dL Glucose 194 H (74-99) mg/dL POC Glucose (mg/dL) (75-99) mg/dL Osmolality 340 H* (280-301) mosm/kg Calcium 7.7 L (8.4-10.2) mg/dL Total Protein 5.7 L (6.3-8.2) g/dL Albumin 2.8 L (3.5-5.0) g/dL Procalcitonin 0.52 H (0.02-0.09) ng/mL 03/23/20 03/23/20 03/23/20 Range/Units 12:32 14:26 15:49 WBC (3.8-10.6) k/uL Neutrophils # (1.3-7.7) k/uL Lymphocytes # (1.0-4.8) k/uL Sodium (137-145) mmol/L Potassium (3.5-5.1) mmol/L Chloride (98-107) mmol/L Carbon Dioxide (22-30) mmol/L BUN (9-20) mg/dL Creatinine (0.66-1.25) mg/dL Glucose (74-99) mg/dL POC Glucose (mg/dL) 223 H 252 H 299 H (75-99) mg/dL Osmolality (280-301) mosm/kg Calcium (8.4-10.2) mg/dL Total Protein (6.3-8.2) g/dL Albumin (3.5-5.0) g/dL Procalcitonin (0.02-0.09) ng/mL 03/23/20 03/23/20 03/23/20 Range/Units 17:51 19:05 20:26 WBC (3.8-10.6) k/uL Neutrophils # (1.3-7.7) k/uL Lymphocytes # (1.0-4.8) k/uL Sodium (137-145) mmol/L Potassium 8.4 H* (3.5-5.1) mmol/L Chloride 112 H (98-107) mmol/L Carbon Dioxide 20 L (22-30) mmol/L BUN 41 H (9-20) mg/dL Creatinine 1.42 H (0.66-1.25) mg/dL Glucose 562 H* (74-99) mg/dL POC Glucose (mg/dL) 310 H 296 H (75-99) mg/dL Osmolality (280-301) mosm/kg Calcium 6.7 L (8.4-10.2) mg/dL Total Protein (6.3-8.2) g/dL Albumin (3.5-5.0) g/dL Procalcitonin (0.02-0.09) ng/mL 03/23/20 03/23/20 03/23/20 Range/Units 20:29 21:11 22:05 WBC (3.8-10.6) k/uL Neutrophils # (1.3-7.7) k/uL Lymphocytes # (1.0-4.8) k/uL Sodium 154 H (137-145) mmol/L Potassium 3.4 L (3.5-5.1) mmol/L Chloride 120 H (98-107) mmol/L Carbon Dioxide (22-30) mmol/L BUN 45 H (9-20) mg/dL Creatinine 1.62 H (0.66-1.25) mg/dL Glucose 158 H (74-99) mg/dL POC Glucose (mg/dL) 287 H 189 H (75-99) mg/dL Osmolality (280-301) mosm/kg Calcium 7.7 L (8.4-10.2) mg/dL Total Protein 6.0 L (6.3-8.2) g/dL Albumin 3.0 L (3.5-5.0) g/dL Procalcitonin (0.02-0.09) ng/mL 03/23/20 03/23/20 03/24/20 Range/Units 22:19 22:58 00:21 WBC (3.8-10.6) k/uL Neutrophils # (1.3-7.7) k/uL Lymphocytes # (1.0-4.8) k/uL Sodium (137-145) mmol/L Potassium (3.5-5.1) mmol/L Chloride (98-107) mmol/L Carbon Dioxide (22-30) mmol/L BUN (9-20) mg/dL Creatinine (0.66-1.25) mg/dL Glucose (74-99) mg/dL POC Glucose (mg/dL) 152 H 130 H 154 H (75-99) mg/dL Osmolality (280-301) mosm/kg Calcium (8.4-10.2) mg/dL Total Protein (6.3-8.2) g/dL Albumin (3.5-5.0) g/dL Procalcitonin (0.02-0.09) ng/mL 03/24/20 03/24/20 03/24/20 Range/Units 01:27 02:30 03:13 WBC (3.8-10.6) k/uL Neutrophils # (1.3-7.7) k/uL Lymphocytes # (1.0-4.8) k/uL Sodium (137-145) mmol/L Potassium (3.5-5.1) mmol/L Chloride (98-107) mmol/L Carbon Dioxide (22-30) mmol/L BUN (9-20) mg/dL Creatinine (0.66-1.25) mg/dL Glucose (74-99) mg/dL POC Glucose (mg/dL) 132 H 111 H 140 H (75-99) mg/dL Osmolality (280-301) mosm/kg Calcium (8.4-10.2) mg/dL Total Protein (6.3-8.2) g/dL Albumin (3.5-5.0) g/dL Procalcitonin (0.02-0.09) ng/mL 03/24/20 03/24/20 03/24/20 Range/Units 03:55 03:55 04:00 WBC 10.8 H (3.8-10.6) k/uL Neutrophils # 9.1 H (1.3-7.7) k/uL Lymphocytes # 0.9 L (1.0-4.8) k/uL Sodium 152 H (137-145) mmol/L Potassium 3.4 L (3.5-5.1) mmol/L Chloride 118 H (98-107) mmol/L Carbon Dioxide (22-30) mmol/L BUN 38 H (9-20) mg/dL Creatinine 1.64 H (0.66-1.25) mg/dL Glucose 173 H (74-99) mg/dL POC Glucose (mg/dL) 155 H (75-99) mg/dL Osmolality (280-301) mosm/kg Calcium 7.6 L (8.4-10.2) mg/dL Total Protein 5.6 L (6.3-8.2) g/dL Albumin 2.8 L (3.5-5.0) g/dL Procalcitonin (0.02-0.09) ng/mL 03/24/20 03/24/20 03/24/20 Range/Units 05:16 05:53 07:11 WBC (3.8-10.6) k/uL Neutrophils # (1.3-7.7) k/uL Lymphocytes # (1.0-4.8) k/uL Sodium (137-145) mmol/L Potassium (3.5-5.1) mmol/L Chloride (98-107) mmol/L Carbon Dioxide (22-30) mmol/L BUN (9-20) mg/dL Creatinine (0.66-1.25) mg/dL Glucose (74-99) mg/dL POC Glucose (mg/dL) 172 H 160 H 155 H (75-99) mg/dL Osmolality (280-301) mosm/kg Calcium (8.4-10.2) mg/dL Total Protein (6.3-8.2) g/dL Albumin (3.5-5.0) g/dL Procalcitonin (0.02-0.09) ng/mL 03/24/20 Range/Units 08:20 WBC (3.8-10.6) k/uL Neutrophils # (1.3-7.7) k/uL Lymphocytes # (1.0-4.8) k/uL Sodium (137-145) mmol/L Potassium (3.5-5.1) mmol/L Chloride (98-107) mmol/L Carbon Dioxide (22-30) mmol/L BUN (9-20) mg/dL Creatinine (0.66-1.25) mg/dL Glucose (74-99) mg/dL POC Glucose (mg/dL) 137 H (75-99) mg/dL Osmolality (280-301) mosm/kg Calcium (8.4-10.2) mg/dL Total Protein (6.3-8.2) g/dL Albumin (3.5-5.0) g/dL Procalcitonin (0.02-0.09) ng/mL Microbiology - Last 24 Hours (Table) 03/23/20 17:50 Urine Culture - Preliminary Urine,Catheterized 03/22/20 21:21 Blood Culture - Preliminary Blood No Growth after 24 hours Assessment and Plan Assessment: 1. Mixed Encephalopathy, metabolic and septic 2. Diabetic Ketoacidosis, resolved 3. COVID 19 4. ATIF 5. Hypertension, essential 6. Hyperlipidemia 59 year old man with HTN/HLD/DM presented with hyperactive delirium, poor PO intake for 10 days, and high anion gap metabolic acidosis and was noted to be COVID positive with multifactorial encephalopathy. He was admitted to the ICU for treatment with precedex gtt for agitation, and was started on broad spectrum meningitis coverage + acyclovir for encephalitis coverage. Altered mental status with severe high anion gap metabolic acidosis and severe sepsis -Differentials include toxic metabolic encephalopathy secondary to severe dehydration from DKA in setting of COVID-19 infection (SGLT 2 inhibitors in setting of hypovolemia can cause euglycemic DKA) vs severe sepsis from meningitis/encephalitis vs salicylate poisoning (levels negative) -Neurology consult, appreciate recs - LP pending -Acetone levels pending with UA showing ketones, improving -Bicarbonate infusion -Continue with insulin infusion w/ blood glucose monitoring q1h -Monitor electrolytes -C/w empiric antibiotics w/ Ceftriaxone, Vancomycin, Ampicillin, and Acyclovir -IVFs -ID and Neuro consults -F/u Lactate levels -Neurochecks COVID 19 -Current SpO2 99% on RA -Not a candidate for dexamethasone ATIF -Likely secondary to severe dehydration -Management as per above -ULytes, pending -Renal/Bladder US unremarkable DVT prophylaxis -Lovenox subq The patient is admitted with an anticipated greater than 2 midnight stay for evaluation of AMS CODE STATUS: Full Code Discussed with: Patient Anticipated discharge date: 4-[address]: Home
[2020-03-24 12:08] LABS: Glucose,Whole Blood 125 mg/dL (75-99)
--- NOTE | 2020-03-24 14:58 | EEG ---
ELECTROENCEPHALOGRAM REPORT DATE OF SERVICE: 03/24/2020 CLINICAL HISTORY: This is a 59-year-old gentleman that presented to the Emergency Department on 03/23/2020 for altered mental status. The patient was found to have positive COVID-19 on this admission. This video EEG was obtained to evaluate for seizure and epileptiform activity. RELATIVE MEDICATION: The patient is not on any antiepileptic drugs. EEG TYPE: A routine EEG per ACS guideline for COVID-19 patient. DESCRIPTION: Wakefulness is only obtained. During the awake state, there is no posterior dominant rhythm. The background consists of diffuse wir-ff-twaspeed voltage 1-2 hertz non- rhythmic delta activity intermixed with theta activity. There is no stage 2 sleep seen over bilateral hemispheres. There is significant myogenic artifact throughout the study. INTERICTAL AND ICTAL: None. ACTIVATION PROCEDURE: Photic stimulation and hyperventilation was not performed. CLINICAL INTERPRETATION: This is an abnormal EEG. The background slowing is suggestive of moderate to severe encephalopathy of unspecified etiology. There are no focal slowing, epileptiform discharges or seizure seen throughout the study. There is myogenic artifact throughout the study. Clinical correlation is recommended. MMODL / IJN: [id number] / ERIC
--- NOTE | 2020-03-24 15:05 | PN ---
PROGRESS NOTE Patient is seen for followup for acute kidney injury, metabolic acidosis. Patient is COVID positive. He was quite acidotic and started on bicarb. Patient's sodium was elevated and therefore the bicarb drip was adjusted multiple times. This morning his acidosis has improved and the bicarb drip is discontinued. His sodium remains a bit on the higher side. Case is discussed with nursing staff. Overall general condition is about the same. Patient remains agitated. He is maintained on IV fluids. He has had good urine output. Blood pressure was 129/98, heart rate 111 per minute, he is afebrile. Examination is discussed with the nursing staff. No evidence of edema and patient is moving all 4 extremities. He is confused. LABS: Show sodium 152, potassium 3.4, chloride 118. CO2 is 23, BUN 38, creatinine 1.64, hemoglobin 14.6 g/dL. ASSESSMENT: 1. Acute kidney injury secondary to hypotension, currently improving. Serum creatinine now staying at about 1.6 mg/dL. The patient has good urine output. No nephrotoxic agents on board. 2. Hypernatremia associated with free water deficit, currently on D5W. 3. Metabolic acidosis, non gap associated with renal failure, lactic acidosis. The gap was mildly elevated. Status post fluid resuscitation, currently improving. 4. Mental status changes associated with electrolyte abnormalities underlying COVID infection. 5. COVID pneumonia, maintained on steroids, antibiotics. 6. Hypophosphatemia, status post replacement. 7. Hypokalemia, currently being replaced. PLAN: Continue off bicarb drip. Continue with D5W. Repeat labs in a.m. Repeat UA tomorrow. MMODL / IJN: [id number] /
[2020-03-24 15:45] LABS: Glucose,Whole Blood 217 mg/dL (75-99)
[2020-03-24] MEDS: VANCOMYCIN 1,250 MG in SODIUM CHLORIDE 0.9% 250 ML IVPB SCH (15:52)
[2020-03-24] MEDS ORDERED: LORazepam 2 MG/ML INJ IV STA (18:03)
[2020-03-24] MEDS ORDERED: LORazepam 2 MG/ML INJ ONE (18:03)
[2020-03-24 19:07] LABS: Creatinine,Urine Random 20.7 mg/dL
[2020-03-24 20:30] LABS: Glucose,Whole Blood 123 mg/dL (75-99)
--- NOTE | 2020-03-24 20:56 | PN ---
PROGRESS NOTE DATE OF SERVICE: 03/24/2020 REASON FOR FOLLOWUP: COVID-19 infection and encephalopathy. INTERVAL HISTORY: The patient is currently afebrile. The patient remains pleasantly confused. He is currently in restraints. No vomiting or diarrhea reported by the nursing staff. The patient himself is unable to provide any history. PHYSICAL EXAMINATION: Blood pressure 131/92 with a pulse of 87, temperature 98. He is 98% on room air. General description is a middle-aged male lying in bed in no distress. RESPIRATORY SYSTEM: Unlabored breathing with decreased breath sounds at the base. No wheeze. HEART: S1, S2. Regular rate and rhythm. ABDOMEN: Soft. No tenderness. LABS: Hemoglobin is 14.3, white count 10.8. BUN of 38, creatinine 1.64. LP was requested, not completed. DIAGNOSTIC IMPRESSION AND PLAN: Patient presented to the hospital with mental status changes and hypothermia and a question of encephalitis. Still waiting for the LP to be completed. He is currently on broad-spectrum antibiotics and antiviral; to continue while watching his kidney function and clinical course closely. MMODL / IJN: [id number] /
[2020-03-25] MEDS: AMPICILLIN 2,000 MG in SODIUM CHLORIDE 0.9% 100 ML IVPB SCH ×3 (00:11→17:16)
[2020-03-25 00:18] LABS: Glucose,Whole Blood 226 mg/dL (75-99)
[2020-03-25] MEDS: INSULIN ASPART (NovoLOG) 100 UNIT/ML VIAL SQ SCH ×6 (01:10→20:35)
[2020-03-25] MEDS: HALOPERIDOL LACTATE 5 MG/ML 1 ML VIAL IVP PRN ×2 (01:11→10:03)
[2020-03-25 04:25] LABS: Glucose,Whole Blood 167 mg/dL (75-99)
[2020-03-25] MEDS: DEXTROSE 5% IN WATER 1,000 ML IV SCH ×2 (05:30→18:11)
[2020-03-25 05:42] LABS: Albumin 2.8 g/dL (3.5-5.0); Calcium 7.8 mg/dL (8.4-10.2); Potassium 3.7 mmol/L (3.5-5.1); Total Bilirubin 0.9 mg/dL (0.2-1.3); Total Protein 5.7 g/dL (6.3-8.2)
[2020-03-25] MEDS: INSULIN DETEMIR (LEVEMIR) 100 UNIT/ML SYR SQ SCH (06:55)
[2020-03-25] MEDS: POTASSIUM CHLORIDE 10 MEQ in WATER FOR INJECTION 1 100ML.BAG IVPB SCH ×2 (06:55→08:12)
[2020-03-25] MEDS: FAMOTIDINE 20 MG/2 ML VIAL IV SCH (08:10)
[2020-03-25] MEDS: DEXAMETHASONE SOD PHOSPHATE 10 MG/ML 1 ML VIAL IV SCH (08:10)
[2020-03-25] MEDS: ACYCLOVIR SODIUM 500 MG in SODIUM CHLORIDE 0.9% 100 ML IVPB SCH ×2 (08:11→20:50)
[2020-03-25] MEDS: VANCOMYCIN 1,250 MG in SODIUM CHLORIDE 0.9% 250 ML IVPB SCH (08:15)
[2020-03-25] MEDS: THIAMINE 100 MG in SODIUM CHLORIDE 0.9% 50 ML IVPB SCH (08:15)
[2020-03-25 08:31] LABS: Glucose,Whole Blood 157 mg/dL (75-99)
--- NOTE | 2020-03-25 09:19 | P.PN ---
Subjective Progress Note Date: 03/25/20 This is a 59-year-old male patient who came in to the [facility] yesterday be cause of an altered mental status. The patient started getting sick around Thanksgiving time. His condition was progressively getting worse. He has some mild cough and he was progressively getting more fatigued and sized. His condition progressively got worse over the past 10 days as the patient was taken minimal amount of oral intake and ultimately decompensated and he came into the emergency department yesterday having significant altered mentation and he was extremely lethargic. He was unable to provide any history. The patient was seen in the emergency department. He was on room air oxygen with a pulse ox of 99%. Hemodynamically parameters were stable. He was hypothermic with a temperature of 94. Nevertheless, his blood work was profoundly abnormal. Acute kidney injury. Again of 63 with a creatinine of 2.7. He had +2 ketones in his urine. The patient had a sodium level of 143, serum bicarbonate less than 5, potassium level was at 4.7, glucose was at 309, the patient had a calcium of 8.1, magnesium of 2.9, phosphorus from this morning's of 0.6, liver function tests were within normal limits, LDH was 1195, troponin was negative, CRP was 49, and the lactic acid level was at 1. The patient has a positive coronavirus COVID 19 PCR. Overnight, the patient was brought into the intensive care unit. He . Remains quite restless and agitated. This morning, he is going to be started on Precedex to control his agitation. He received 1.5 L in the emergency department, and he received fluids here in the ICU in the form of D5 half-normal saline with potassium and D5 sodium bicarbonate with 50 mEq of sodium bicarbonate running at 100 mL an hour. This morning, I switched his IV fluids to D5 with 100 mEq of sodium bicarbonate at 50 ML an Hour. Sodium Level Is at 1 49 from Today. Serum Bicarb Is up to 14. His Creatinine Is down to 2.1. Is Producing Adequate Amount of Urine Output. He Is Quite Restless and He Will Be Started on Precedex. Sinus rhythm he is in a sinus rhythm. He is on Precedex running at 0.4 g per KG per minute. He remains on room air oxygen. He is also on insulin drip at 0.2 units per hour for protocol. The chest x-ray showing bilateral pulmonary infiltrates consistent with Covid 19 related pneumonia. CAT scan of the brain done in the emergency was within normal limits. Today's evaluation of 03/24/2020, the patient remains encephalopathic. He is on Precedex at 0.07 g per KG per hour. Control his agitation. He is able to say a few words. He is unable to hold a conversation. He is moving all 4 extremities without any limitation. He grimaces to painful stimulation. Note that his acidosis is resolved and serum bicarbonate of 23. The patient's sodium level is at 152. He still on a bicarb infusion with D5 and 50 mEq of sodium bicarbonate running at 50 mL an hour. He is also on D5 water at the rate of 100 mL an hour. He is producing adequate amount of urine output. Sodium level is at 152. Creatinine is down to 1.6. The patient was seen by infectious disease and neurology. The patient is on broad-spectrum antibiotics. The patient is on ampicillin, Rocephin, acyclovir and the patient is also taking Decadron as the patient was diagnosed having a covid 19 infection. On 03/25/2020, I'm seeing the patient for a follow-up. The patient remains confused and is less agitated. The patient remains on 2-point restraints. A lumbar puncture was attempted by neurology yesterday and it was not successful. It perform the procedure successfully today. Initially, the tap was bloody and ultimately the CSF clears and this will be sent for analysis. Currently still on Precedex at 0.5 g per KG for hours. He is also on IV fluids D5W at the rate of 100 mL an hour. He is well rested. He cannot hold a conversation still. He mumbles a few words. No neck stiffness. No fever. Remains on a combination of ampicillin, Rocephin and acyclovir. Remains on Decadron.the blood work from today shows a sodium level of 146. Renal function stable. Creatinine is down to 1.1. The patient is producing adequate amount of urine output. Blood sugar is at 157. He is on Levemir insulin 10 units along with a sliding scale coverage. He remains nothing by mouth. Objective - Vital Signs Vital signs: Vital Signs Temp 98.0 F 03/25/20 04:00 Pulse 79 03/25/20 07:00 Resp 16 03/25/20 07:00 BP 99/72 03/25/20 07:00 Pulse Ox 100 03/25/20 07:00 Intake & Output 03/24/20 03/25/20 03/25/20 18:59 06:59 18:59 Intake Total 1850 1510.935 100 Output Total 1590 1380 100 Balance 260 130.935 0 Weight 64.4 kg Intake: IV 1850 1500 100 Acyclovir Sodium 500 mg 200 In Sodium Chloride 0.9% 100 ml @ 100 mls/hr IVPB Q12HR [facility] Rx#:[id number] Ampicillin 2,000 mg In 100 100 Sodium Chloride 0.9% 100 ml @ 200 mls/hr IVPB Q8HR [facility] Rx#:[id number] Dextrose 5% in Water 1, 1300 1100 100 000 ml @ 100 mls/hr IV . Q10H [facility] Rx#:[id number] Dextrose 5% in Water 1, 100 000 ml @ 50 mls/hr IV . Q21H [facility] with Sodium Bicarb (1 Meq/ml) 50 ml Rx#:[id number] Potassium Phosphate 10 100 mmol In Sodium Chloride 0 .9% 250 ml @ 125 mls/hr IV Q2H [facility] Rx#:[id number] Vancomycin 1,250 mg In 250 Sodium Chloride 0.9% 250 ml @ 125 mls/hr IVPB HS [facility] Rx#:[id number] cefTRIAXone 1 gm In 100 Sodium Chloride 0.9% 50 ml @ 100 mls/hr IVPB Q12HR [facility] Rx#:[id number] Intake, IV Titration 10.935 Amount Dexmedetomidine/0.9% NaCl 10.935 (Pmx) 400 mcg In Empty Bag 1 bag @ Titrate IV . Q0M [facility] Rx#:[id number] Output: Urine 1590 1380 100 Other: Voiding Method Indwelling Catheter Indwelling Catheter Indwelling Catheter - Exam the patient is unable to hold a conversation still.. His restless in bed. He is not aware of his location. His speech is garbled. Nevertheless, the patient is moving all 4 extremities without any limitation. No neck stiffness.he only states few words. He remains confused. He remains on Precedex for agitation. His incision is well controlled for now. Head exam was generally normal. There was no scleral icterus or corneal arcus. Mucous membranes were moist. Neck was supple and without jugular venous distension, thyromegaly, or carotid bruits. Carotids were easily palpable bilaterally. There was no adenopathy. Lungs sounds are diminished in the suspected lung bases bilaterally Cardiac exam revealed the PMI to be normally situated and sized. The rhythm was regular and no extrasystoles were noted during several minutes of auscultation. The first and second heart sounds were normal and physiologic splitting of the second heart sound was noted. There were no murmurs, rubs, clicks, or gallops.] Abdominal exam revealed normal bowel sounds. The abdomen was soft, non-tender, and without masses, organomegaly, or appreciable enlargement of the abdominal aorta. Examination of the extremities revealed easily palpable radial, femoral and pedal pulses. There was no cyanosis, clubbing or edema. Examination of the skin revealed no evidence of significant rashes, suspicious appearing nevi or other concerning lesions. Neurologically his exam is nonfocal. Pupils are equal and reactive to light. No facial asymmetry. Reflexes are symmetrical. - Labs CBC & Chem 7: 03/24/20 03:55 03/25/20 04:42 Labs: Abnormal Lab Results - Last 24 Hours (Table) 03/24/20 03/24/20 03/24/20 Range/Units 03:55 12:06 15:44 Sodium (137-145) mmol/L Chloride (98-107) mmol/L BUN (9-20) mg/dL Glucose (74-99) mg/dL POC Glucose (mg/dL) 125 H 217 H (75-99) mg/dL Calcium (8.4-10.2) mg/dL Total Protein (6.3-8.2) g/dL Albumin (3.5-5.0) g/dL Vitamin B12 1381.0 H (200.0-944.0) pg/mL U Random Total Protein (<12) mg/dL 03/24/20 03/24/20 03/25/20 Range/Units 18:35 20:28 00:15 Sodium (137-145) mmol/L Chloride (98-107) mmol/L BUN (9-20) mg/dL Glucose (74-99) mg/dL POC Glucose (mg/dL) 123 H 226 H (75-99) mg/dL Calcium (8.4-10.2) mg/dL Total Protein (6.3-8.2) g/dL Albumin (3.5-5.0) g/dL Vitamin B12 (200.0-944.0) pg/mL U Random Total Protein 32 H (<12) mg/dL 03/25/20 03/25/20 03/25/20 Range/Units 04:24 04:42 08:29 Sodium 146 H (137-145) mmol/L Chloride 112 H (98-107) mmol/L BUN 26 H (9-20) mg/dL Glucose 188 H (74-99) mg/dL POC Glucose (mg/dL) 167 H 157 H (75-99) mg/dL Calcium 7.8 L (8.4-10.2) mg/dL Total Protein 5.7 L (6.3-8.2) g/dL Albumin 2.8 L (3.5-5.0) g/dL Vitamin B12 (200.0-944.0) pg/mL U Random Total Protein (<12) mg/dL Microbiology - Last 24 Hours (Table) 03/23/20 17:50 Urine Culture - Final Urine,Catheterized 03/22/20 21:21 Blood Culture - Preliminary Blood No Growth after 48 hours Assessment and Plan Plan: 1 acute COVID 19 infection/pneumonia. No significant respiratory distress. Nevertheless, the patient has better pulmonary infiltrates and the patient has constitutional symptoms and altered mentation and severe dehydration and acute kidney injury, PROBABLY complications of this viral infection.the patient does not have any significant respiratory distress. He is on room air oxygen on today's evaluation with a pulse ox of 99-100%. 2 acute kidney injury, improving creatinine and the renal function has recovered. 3 altered mental status with episodic encephalopathy, likely secondary to above, also consider metabolic encephalopathy or viral encephalopathy. Patient is an EEG yesterday that showed background slowing consistent with moderate to severe encephalopathy amount. Etiology. Lumbar puncture was performed today. 4 severe anion gap metabolic acidosis, recovered and serum bicarbonate n ormalized 5 diabetes mellituscurrently on Lantus insulin for blood sugar control 6 hyperlipidemia 7 hypertension Plan continue IV fluids continue Lantus insulin along with a sliding scale coverage Renal function mproved Continue IV Decadron lumbar puncture was performed and this will be sent for analysis EKG was noted Continue Precedex for agitation and altered mentation. Continue the combination of acyclovir, ampicillin and Rocephin for now pending further results from the CSF fluid Awaiting further input from neurology We'll continue to follow.
[2020-03-25] MEDS: ENOXAPARIN 40 MG/0.4 ML SYRINGE SQ SCH (10:04)
--- NOTE | 2020-03-25 10:32 | P.PN ---
Subjective Progress Note Date: 03/25/20 No new complaints at this time. Continues to be agitated but requiring less precedex. Not able to hold conversation, does minimally interact. s/p LP today. Objective - Vital Signs Vital signs: Vital Signs Temp 98.0 F 03/25/20 04:00 Pulse 79 03/25/20 07:00 Resp 16 03/25/20 07:00 BP 99/72 03/25/20 07:00 Pulse Ox 100 03/25/20 07:00 Intake & Output 03/24/20 03/25/20 03/25/20 18:59 06:59 18:59 Intake Total 1850 1510.935 100 Output Total 1590 1380 100 Balance 260 130.935 0 Weight 64.4 kg Intake: IV 1850 1500 100 Acyclovir Sodium 500 mg 200 In Sodium Chloride 0.9% 100 ml @ 100 mls/hr IVPB Q12HR [facility] Rx#:[id number] Ampicillin 2,000 mg In 100 100 Sodium Chloride 0.9% 100 ml @ 200 mls/hr IVPB Q8HR [facility] Rx#:[id number] Dextrose 5% in Water 1, 1300 1100 100 000 ml @ 100 mls/hr IV . Q10H [facility] Rx#:[id number] Dextrose 5% in Water 1, 100 000 ml @ 50 mls/hr IV . Q21H [facility] with Sodium Bicarb (1 Meq/ml) 50 ml Rx#:[id number] Potassium Phosphate 10 100 mmol In Sodium Chloride 0 .9% 250 ml @ 125 mls/hr IV Q2H [facility] Rx#:[id number] Vancomycin 1,250 mg In 250 Sodium Chloride 0.9% 250 ml @ 125 mls/hr IVPB HS [facility] Rx#:[id number] cefTRIAXone 1 gm In 100 Sodium Chloride 0.9% 50 ml @ 100 mls/hr IVPB Q12HR [facility] Rx#:[id number] Intake, IV Titration 10.935 Amount Dexmedetomidine/0.9% NaCl 10.935 (Pmx) 400 mcg In Empty Bag 1 bag @ Titrate IV . Q0M [facility] Rx#:[id number] Output: Urine 1590 1380 100 Other: Voiding Method Indwelling Catheter Indwelling Catheter Indwelling Catheter - Exam Gen: awake, alert HEENT: normocephalic, atraumatic, good hearing acuity, moist mucous membranes Resp: good air exchange, breathing comfortably with no accessory muscle use CVS: good distal perfusion x 4, GI: soft, NTTP, ND : no SPT, no CVAT, garcia catheter is present MSK: no pitting edema, no clubbing Neuro: non-focal, moving all extremities - Labs CBC & Chem 7: 03/24/20 03:55 03/25/20 04:42 Labs: Abnormal Lab Results - Last 24 Hours (Table) 03/24/20 03/24/20 03/24/20 Range/Units 03:55 12:06 15:44 Sodium (137-145) mmol/L Chloride (98-107) mmol/L BUN (9-20) mg/dL Glucose (74-99) mg/dL POC Glucose (mg/dL) 125 H 217 H (75-99) mg/dL Calcium (8.4-10.2) mg/dL Total Protein (6.3-8.2) g/dL Albumin (3.5-5.0) g/dL Vitamin B12 1381.0 H (200.0-944.0) pg/mL U Random Total Protein (<12) mg/dL 03/24/20 03/24/20 03/25/20 Range/Units 18:35 20:28 00:15 Sodium (137-145) mmol/L Chloride (98-107) mmol/L BUN (9-20) mg/dL Glucose (74-99) mg/dL POC Glucose (mg/dL) 123 H 226 H (75-99) mg/dL Calcium (8.4-10.2) mg/dL Total Protein (6.3-8.2) g/dL Albumin (3.5-5.0) g/dL Vitamin B12 (200.0-944.0) pg/mL U Random Total Protein 32 H (<12) mg/dL 03/25/20 03/25/20 03/25/20 Range/Units 04:24 04:42 08:29 Sodium 146 H (137-145) mmol/L Chloride 112 H (98-107) mmol/L BUN 26 H (9-20) mg/dL Glucose 188 H (74-99) mg/dL POC Glucose (mg/dL) 167 H 157 H (75-99) mg/dL Calcium 7.8 L (8.4-10.2) mg/dL Total Protein 5.7 L (6.3-8.2) g/dL Albumin 2.8 L (3.5-5.0) g/dL Vitamin B12 (200.0-944.0) pg/mL U Random Total Protein (<12) mg/dL Microbiology - Last 24 Hours (Table) 03/23/20 17:50 Urine Culture - Final Urine,Catheterized 03/22/20 21:21 Blood Culture - Preliminary Blood No Growth after 48 hours Assessment and Plan Assessment: 1. Mixed Encephalopathy, metabolic and septic 2. Diabetic Ketoacidosis, resolved 3. COVID 19 4. ATIF 5. Hypertension, essential 6. Hyperlipidemia 59 year old man with HTN/HLD/DM presented with hyperactive delirium, poor PO intake for 10 days, and high anion gap metabolic acidosis and was noted to be COVID positive with multifactorial encephalopathy. He was admitted to the ICU for treatment with precedex gtt for agitation, and was started on broad spectrum meningitis coverage + acyclovir for encephalitis coverage. Altered mental status with severe high anion gap metabolic acidosis and severe sepsis -Differentials include toxic metabolic encephalopathy secondary to severe dehydration from DKA in setting of COVID-19 infection (SGLT 2 inhibitors in setting of hypovolemia can cause euglycemic DKA) vs severe sepsis from meningitis/encephalitis vs salicylate poisoning (levels negative) -Neurology consult, appreciate recs - LP results pending -Acetone levels pending with UA showing ketones, improving -Bicarbonate infusion -Continue with insulin infusion w/ blood glucose monitoring q1h -Monitor electrolytes -C/w empiric antibiotics w/ Ceftriaxone and Acyclovir -IVFs -ID and Neuro consults -F/u Lactate levels -Neurochecks COVID 19 -Current SpO2 99% on RA -Not a candidate for dexamethasone ATIF -Likely secondary to severe dehydration -Management as per above -ULytes, pending -Renal/Bladder US unremarkable DVT prophylaxis -Lovenox subq The patient is admitted with an anticipated greater than 2 midnight stay for evaluation of AMS CODE STATUS: Full Code Discussed with: Patient Anticipated discharge date: 4-[address]: Home
[2020-03-25] MEDS ORDERED: LORazepam 2 MG/ML INJ IV PRN (11:18)
--- NOTE | 2020-03-25 11:54 | PN ---
PROGRESS NOTE Patient is seen for followup for acute kidney injury and hypernatremia. His renal function has improved significantly. Patient was hypovolemic. He was maintained on D5W along with the bicarb drip for severe metabolic acidosis. He is COVID positive. Patient was admitted with mental status changes. He remains confused, although mentation is somewhat improved than on initial admission. PHYSICAL EXAMINATION: On examination today, blood pressure is 139/99, heart rate 118 per minute, he is afebrile. Examination shows no evidence of edema bilateral lower extremities. Abdomen is soft, nontender. [employer] exam shows patient is moving all 4 extremities. He is confused. Heart and lungs are not examined. LABS: Show sodium 146, potassium 3.7, chloride 112, CO2 is 26, BUN is 26. CO2 is also 26, creatinine 1.16. ASSESSMENT: 1. Acute kidney injury, prerenal currently improved with IV fluids. 2. Non-gap metabolic acidosis associated with renal failure. The patient had mild gap acidosis as well. His lactic acid was elevated on initial admission, currently it is improved. 3. COVID-19 pneumonia. No significant respiratory distress. 4. Encephalopathy associated with hypernatremia underlying infection and sepsis. 5. Hypernatremia associated with free water deficit, maintained on D5W currently improved. PLAN: Continue with steroids. Continue D5W. Check labs in a.m. If sodium is further improved, can switch to half-normal saline. Patient will be having a brain MRI done today. MMODL / IJN: [id number] /
[2020-03-25 12:35] LABS: Glucose,Whole Blood 119 mg/dL (75-99)
[2020-03-25 12:44] LABS: Glucose,CSF 114 mg/dL (40-70); Total Protein,CSF 85 mg/dL (12-60)
[2020-03-25] MEDS ORDERED: LORazepam 2 MG/ML INJ IV STA (13:23)
[2020-03-25 13:45] LABS: Appearance,CSF Clear; CSF Tube Number 4; CSF Tube Volume 1.4; Nucleated Cells, CSF 1 u/L (0-5); Red Blood Cell, CSF Fresh 95 %; Red Blood Cell,CSF 244 u/L (0-10)
[2020-03-25 13:46] LABS: Red Blood Cell, CSF Crenated 5 %
--- NOTE | 2020-03-25 16:24 | MR ---
EXAMINATION TYPE: MR brain wo/w con DATE OF EXAM: 03/25/2020 COMPARISON: CT brain 03/22/2020 HISTORY: Altered mental status TECHNIQUE: Multiplanar, multisequence images of the brain and brainstem is performed without and with IV contras t, utilizing 6.5 mL intravenous Gadavist. Aspirate protocol utilized due to patient's debility. FINDINGS: There is motion on the exam. Diffusion weighted images demonstrate no evidence of a recent infarct or other diffusion abnormality. There is no extra-axial fluid collection. Some suggestion of hyperintensity within the white matte r on inversion recovery T2-weighted sequences may be technical. The ventricular system and cisternal spaces are normal in size and appearance. The brain volume is age appropriate. Midline structures demonstrate normal morphology. The craniocervical junction appears within normal limits. Post contrast images demonstrate no abnormal enhancement. The dural venous sinuses appear pa tent. The visualized sinuses are clear and the globes are intact. IMPRESSION: There is motion on the exam, exam is somewhat limited. No evident restricted diffusion to suggest subacute infarct. Suspect possible artifact causing the appearance of the intensity in the w aurora matter on inversion recovery rather than toxic encephalopathy, follow-up could be performed as i ndicated
[2020-03-25 18:08] LABS: Glucose,Whole Blood 217 mg/dL (75-99)
--- NOTE | 2020-03-25 19:13 | P.PN ---
Subjective Progress Note Date: 03/25/20 The patient was seen at bedside and his agitation and restless is better today compared to yesterday. Upon seeing him patient was not cooperating or verbalizing. In the morning the ICU attending the was successful in getting the lumbar puncture. Objective - Vital Signs Vital signs: Vital Signs Temp 98 F 03/25/20 16:00 Pulse 81 03/25/20 18:00 Resp 16 03/25/20 18:00 BP 88/64 03/25/20 18:00 Pulse Ox 93 L 03/25/20 18:00 Intake & Output 03/24/20 03/25/20 03/25/20 18:59 06:59 18:59 Intake Total 1850 0553.548 3385 Output Total 1590 1380 1310 Balance 260 130.935 -110 Weight 64.4 kg Intake: IV 1850 1500 1200 Acyclovir Sodium 500 mg 200 In Sodium Chloride 0.9% 100 ml @ 100 mls/hr IVPB Q12HR [facility] Rx#:[id number] Ampicillin 2,000 mg In 100 100 Sodium Chloride 0.9% 100 ml @ 200 mls/hr IVPB Q8HR [facility] Rx#:[id number] Dextrose 5% in Water 1, 1300 1100 1200 000 ml @ 100 mls/hr IV . Q10H [facility] Rx#:[id number] Dextrose 5% in Water 1, 100 000 ml @ 50 mls/hr IV . Q21H [facility] with Sodium Bicarb (1 Meq/ml) 50 ml Rx#:[id number] Potassium Phosphate 10 100 mmol In Sodium Chloride 0 .9% 250 ml @ 125 mls/hr IV Q2H [facility] Rx#:[id number] Vancomycin 1,250 mg In 250 Sodium Chloride 0.9% 250 ml @ 125 mls/hr IVPB HS [facility] Rx#:[id number] cefTRIAXone 1 gm In 100 Sodium Chloride 0.9% 50 ml @ 100 mls/hr IVPB Q12HR [facility] Rx#:[id number] Intake, IV Titration 10.935 Amount Dexmedetomidine/0.9% NaCl 10.935 (Pmx) 400 mcg In Empty Bag 1 bag @ Titrate IV . Q0M [facility] Rx#:[id number] Output: Urine 1590 1380 1310 Other: Voiding Method Indwelling Catheter Indwelling Catheter Indwelling Catheter - Exam GENERAL: The patient is lying in bed and seemed to be restless but better today compared to yesterday. . NEUROLOGICAL: Higher mental function: The patient is awake but is mumbling. Unable to respond to questions. Patient not verbalizing appropriately or following commands. Cranial nerves: The primary gaze is Center bilaterally. The pupils are round, equal (3-4mm) and reactive to light. Visual oneil could not be assessed because of cooperation. Extraocular movement is he was able to track me thought the room. No facial weakness noted bilaterally. Cannot assess the rest of the cranial nerves because of the patient the condition. Motor: Gait is deferred because the patient condition. The strength is able to lift up all extremities above gravity and no focality is appreciated . Normal tone but decreased but mostly in the calves as well as the thighs. Cerebellum: Could not be assessed. Sensation: Light touch could not be assessed because of his cooperation about painful stimuli seems to be intact throughout. Reflexes (right/left): 2+ throughout. Plantars are upgoing bilaterally. - Labs CBC & Chem 7: 03/24/20 03:55 03/25/20 04:42 Labs: Abnormal Lab Results - Last 24 Hours (Table) 03/24/20 03/24/20 03/25/20 Range/Units 18:35 20:28 00:15 Sodium (137-145) mmol/L Chloride (98-107) mmol/L BUN (9-20) mg/dL Glucose (74-99) mg/dL POC Glucose (mg/dL) 123 H 226 H (75-99) mg/dL Calcium (8.4-10.2) mg/dL Total Protein (6.3-8.2) g/dL Albumin (3.5-5.0) g/dL U Random Total Protein 32 H (<12) mg/dL CSF RBC (0-10) u/L CSF Glucose (40-70) mg/dL CSF Total Protein (12-60) mg/dL 03/25/20 03/25/20 03/25/20 Range/Units 04:24 04:42 08:29 Sodium 146 H (137-145) mmol/L Chloride 112 H (98-107) mmol/L BUN 26 H (9-20) mg/dL Glucose 188 H (74-99) mg/dL POC Glucose (mg/dL) 167 H 157 H (75-99) mg/dL Calcium 7.8 L (8.4-10.2) mg/dL Total Protein 5.7 L (6.3-8.2) g/dL Albumin 2.8 L (3.5-5.0) g/dL U Random Total Protein (<12) mg/dL CSF RBC (0-10) u/L CSF Glucose (40-70) mg/dL CSF Total Protein (12-60) mg/dL 03/25/20 03/25/20 03/25/20 Range/Units 09:15 12:34 18:06 Sodium (137-145) mmol/L Chloride (98-107) mmol/L BUN (9-20) mg/dL Glucose (74-99) mg/dL POC Glucose (mg/dL) 119 H 217 H (75-99) mg/dL Calcium (8.4-10.2) mg/dL Total Protein (6.3-8.2) g/dL Albumin (3.5-5.0) g/dL U Random Total Protein (<12) mg/dL CSF RBC 244 H (0-10) u/L CSF Glucose 114 H (40-70) mg/dL CSF Total Protein 85 H (12-60) mg/dL Microbiology - Last 24 Hours (Table) 03/23/20 17:50 Urine Culture - Final Urine,Catheterized 03/22/20 21:21 Blood Culture - Preliminary Blood No Growth after 48 hours Assessment and Plan Assessment: * Altered mental status, likely due to toxic metabolic encephalopathy due to reasons mentioned below. From the CSF it does not seem meningeal encephalitis especially with 1 nucleated cells. The slight elevation of the protein is li gretchen due to his diabetes. * Patient admitted with severe acidosis, electrolyte imbalance and renal fa ilure. Probable dehydration. * Acute kidney injury--improving. * Severe anion gap metabolic acidosis, recovered and the serum bicarbonate normalize * Diabetes mellitus * Hypernatremia (last sodium is 152)---due to normal saline * COVID-19 infection with pneumonia. Plan: * CSF on 03/25/2020: It's clear, colorless, red blood cell is 244, CSF nuclear cells is 1, glucose is 114, total protein is 85. Normal protein is between 12-60. From the CSF study and doesn't look that the patient has meningeal encephalitis. The patient is currently on ceftriaxone 1 g every 12 hours, vancomycin, ampicillin and acyclovir. From a neurology standpoint I will think the patient needs to be on acyclovir, ampicillin, ceftriaxone or vancomycin bowel defer the management to the ID team. * vitamin B12: 1381 which is above normal which is considered normal. RBC Fol ate level: 615 which is considered normal. Ammonia level <9. * MRI of the brain 03/25/2020: Was reported as there is motion on exam, exam is somewhat limited that. No evident restriction diffusion to suggest subacute infarct. Suspect possible artifact causing the appearance of the intensity in the white matter an emergent recovery read then toxic encephalopathy, follow- up could be performed as indicated. I personally reviewed the MRI the brain and I do agree there is no acute or subacute infarct on the MRI. I felt like on the FLAIR there is hyperintense lesions over the bilateral thalamus. I have asked radiology manager to reach out to a different radiologists to evaluated images. * EEG (03/24/2020): Is an abnormal routine EEG. The back was sore and is randle ggestive of moderate to severe encephalopathy of unspecified etiology. There are no focal slowing, epleptiform discharges or seizures seen throughout the study. There is myogenic artifact throughout the study. * Infection disease is consulted. We'll defer the antibiotic and antiviral management to the infection disease. * Regarding the patient pneumonitis from COVID 19 we'll defer the management to the ICU team. * Medical management as per primary team and ICU team. UPDATE: ICU nurse notified me just prior to MRI the patient was more cooperative and he was responding able to state his name. * The plan was discussed with ICU nurse. Dr. Valentine is covering for neurology service over this weekend Time with Patient: Greater than 30
--- NOTE | 2020-03-25 19:18 | P.PCN ---
Date of Procedure: 03/25/20 Preoperative Diagnosis: Altered mental status Postoperative Diagnosis: Altered mental status Procedure(s) Performed: Lumbar puncture Anesthesia: local Surgeon: Mendoza Guan Estimated Blood Loss (ml): 0 Pathology: other Condition: critical Disposition: ICU Operative Findings: A timeout was performed. My hands were washed immediately prior to the procedure. I wore a surgical cap, mask with protective eyewear, sterile gown and sterile gloves throughout the procedure. The patient was placed in the left lateral position with help from the nursing staff. The area was cleansed and draped in usual sterile fashion using betadine scrub. Anesthesia was achieved with 1% lidocaine. A 20-gauge 3.5-inch spinal needle was placed in the L4-5 lumbar interspace. On the 1 attempt, clear colored cerebral spinal fluid was obtained. . CSF was collected into 4 tubes. These were sent for the usual tests, including 1 tube to be held for further analysis if needed. A sterile bandaid was placed over the puncture site. The patient had no immediate complications and tolerated the procedure well. Estimated blood loss was 0cc
[2020-03-25 20:06] LABS: Glucose,Whole Blood 129 mg/dL (75-99)
[2020-03-25 21:03] LABS: HIV 2 AB Non-Reactive (Non-Reactive); HIV AB P24 Non-Reactive (Non-Reactive); HIV P24 AG Non-Reactive (Non-Reactive)
--- NOTE | 2020-03-25 22:02 | PN ---
PROGRESS NOTE DATE OF SERVICE: 03/25/2020 REASON FOR FOLLOWUP: Pneumonia and encephalitis. INTERVAL COURSE: The patient is currently afebrile. Apparently the patient was slightly more awake and alert today. He was able to see his to the nursing staff. The patient subsequently for the MRI of the brain. He was kind of lethargic at the time of my evaluation. No vomiting or any diarrhea has been reported. The patient himself is unable to provide any history. PHYSICAL EXAMINATION: Blood pressure 146/96, pulse of 92, temperature 98. He is 95% on room air. General description is a middle-aged male lying in bed in no distress. RESPIRATORY SYSTEM: Unlabored breathing with decreased intensity of breath sounds. ABDOMEN: Soft. No tenderness. EXTREMITIES: No edema of the feet. LABS: The patient did have an LP with 244 RBCs, only one nucleated cell, glucose 140, protein 85. White count normalized. DIAGNOSTIC IMPRESSION AND PLAN: 1. Patient admitted to hospital with mental status changes, confusion and hypothermia with concern for possible encephalitis. The CSF findings are not suspicious for any infectious etiology, though still will wait for the HSV DNA by PCR to be completed before discontinuation of the acyclovir. 2. Pneumonia, possibly underlying COVID. Will adjust antibiotics to cover for possible community-acquired pathogen in addition to COVID, as the patient did have elevated procalcitonin. Continue with supportive care. INDIGO / ROBERTON: [id number] /
[2020-03-25 23:16] LABS: Glucose,Whole Blood 112 mg/dL (75-99)
[2020-03-26] MEDS ORDERED: VANCOMYCIN TROUGH DUE 1 EACH MISC MISCELLANE ONE (01:00)
[2020-03-26] MEDS: INSULIN ASPART (NovoLOG) 100 UNIT/ML VIAL SQ SCH ×6 (02:42→21:47)
[2020-03-26 04:03] LABS: Glucose,Whole Blood 175 mg/dL (75-99)
[2020-03-26] MEDS: DEXTROSE 5% IN WATER 1,000 ML IV SCH ×3 (05:15→21:49)
[2020-03-26 05:35] LABS: HCT 42.1 % (39.0-53.0); HGB 14.5 gm/dL (13.0-17.5); MCH 30.5 pg (25.0-35.0); MCHC 34.4 g/dL (31.0-37.0); MCV 88.7 fL (80.0-100.0); Platelet Count 190 k/uL (150-450); RBC 4.74 m/uL (4.30-5.90); RDW 12.7 % (11.5-15.5); WBC 10.3 k/uL (3.8-10.6)
[2020-03-26 06:29] LABS: ALT 24 U/L (4-49); AST 30 U/L (17-59); African American GFR (CKD) >90 (>60 ml/min/1.73 sqM); Albumin 2.8 g/dL (3.5-5.0); Alkaline Phosphatase 89 U/L (38-126); Anion Gap 7 mmol/L; Blood Urea Nitrogen 22 mg/dL (9-20); Carbon Dioxide 26 mmol/L (22-30); Chloride 111 mmol/L (98-107); Glucose 179 mg/dL (74-99); Non-African American GFR(CKD) 81 (>60 ml/min/1.73 sqM); Potassium 3.4 mmol/L (3.5-5.1); Sodium 144 mmol/L (137-145); Total Bilirubin 0.9 mg/dL (0.2-1.3); Total Protein 5.5 g/dL (6.3-8.2)
[2020-03-26] MEDS: POTASSIUM CHLORIDE 10 MEQ in WATER FOR INJECTION 1 100ML.BAG IVPB SCH ×4 (08:16→11:29)
[2020-03-26] MEDS: DEXAMETHASONE SOD PHOSPHATE 10 MG/ML 1 ML VIAL IV SCH (08:17)
[2020-03-26] MEDS: FAMOTIDINE 20 MG/2 ML VIAL IV SCH (08:17)
[2020-03-26] MEDS: ENOXAPARIN 40 MG/0.4 ML SYRINGE SQ SCH (08:17)
[2020-03-26] MEDS: THIAMINE 100 MG in SODIUM CHLORIDE 0.9% 50 ML IVPB SCH (08:22)
[2020-03-26] MEDS: INSULIN DETEMIR (LEVEMIR) 100 UNIT/ML SYR SQ SCH (08:22)
[2020-03-26] MEDS: ACYCLOVIR SODIUM 500 MG in SODIUM CHLORIDE 0.9% 100 ML IVPB SCH ×2 (08:22→21:47)
[2020-03-26] MEDS: DOXYCYCLINE 100 MG CAP PO SCH (08:23)
[2020-03-26 08:35] LABS: Glucose,Whole Blood 107 mg/dL (75-99)
--- NOTE | 2020-03-26 09:08 | P.PN ---
Subjective Progress Note Date: 03/26/20 The patient is seen today 03/26/2020 in follow-up in the intensive care unit. He is more awake and alert today. He is answering questions. Heis in the hospital. He iswasting his care. He is slow to respond but accurate. He remains on a small amount of Precedex at 0.2. Remains on room air oxygen. He did undergo lumbar puncture by Dr. Guan. The fluid analysis thus far remains nondiagnostic for bacteremia or viral infection. His vancomycin has been discontinued. He remains on ceftriaxone and doxycycline. He remains on acyclovir. He is D5 W 100 ML's per hour. He is continued on Lovenox on the dexamethasone, vitamin supplements. His remains on thiamine. White count 10.3. Hemoglobin 14.5. Sodium 144. Potassium 3.4. Creatinine 1.0. Objective - Vital Signs Vital signs: Vital Signs Temp 97.4 F L 03/26/20 04:00 Pulse 85 03/26/20 07:00 Resp 15 03/26/20 07:00 BP 141/90 03/26/20 04:00 Pulse Ox 97 03/26/20 06:00 Intake & Output 03/25/20 03/26/20 03/26/20 18:59 06:59 18:59 Intake Total 1200 1450 Output Total 1310 1245 Balance -110 205 Weight 64 kg Intake: IV 1200 1450 Acyclovir Sodium 500 mg 100 In Sodium Chloride 0.9% 100 ml @ 100 mls/hr IVPB Q12HR [facility] Rx#:[id number] Dextrose 5% in Water 1, 1200 1300 000 ml @ 100 mls/hr IV . Q10H [facility] Rx#:[id number] cefTRIAXone 1 gm In 50 Sodium Chloride 0.9% 50 ml @ 100 mls/hr IVPB Q12HR [facility] Rx#:[id number] Output: Urine 1310 1245 Other: Voiding Method Indwelling Catheter Indwelling Catheter - Exam GENERAL EXAM: Alert, restless, responding appropriately but slow to respond, anemia, comfortable in no apparent distress. HEAD: Normocephalic. EYES: Normal reaction of pupils, equal size. NOSE: Clear with pink turbinates. THROAT: No erythema or exudates. NECK: No masses, no JVD. CHEST: No chest wall deformity. LUNGS: Equal air entry with no crackles, wheeze, rhonchi or dullness. CVS: S1 and S2 normal with no audible murmur, regular rhythm. ABDOMEN: No hepatosplenomegaly, normal bowel sounds, no guarding or rigidity. SPINE: No scoliosis or deformity SKIN: No rashes CENTRAL NERVOUS SYSTEM: Slow to respond. tone is normal in all 4 extremities. EXTREMITIES: There is no peripheral edema. No clubbing, no cyanosis. Peripheral pulses are intact. - Labs CBC & Chem 7: 03/26/20 04:31 03/26/20 04:31 Labs: Abnormal Lab Results - Last 24 Hours (Table) 03/25/20 03/25/20 03/25/20 Range/Units 09:15 12:34 18:06 Potassium (3.5-5.1) mmol/L Chloride (98-107) mmol/L BUN (9-20) mg/dL Glucose (74-99) mg/dL POC Glucose (mg/dL) 119 H 217 H (75-99) mg/dL Calcium (8.4-10.2) mg/dL Total Protein (6.3-8.2) g/dL Albumin (3.5-5.0) g/dL CSF RBC 244 H (0-10) u/L CSF Glucose 114 H (40-70) mg/dL CSF Total Protein 85 H (12-60) mg/dL 03/25/20 03/25/20 03/26/20 Range/Units 20:05 23:15 04:01 Potassium (3.5-5.1) mmol/L Chloride (98-107) mmol/L BUN (9-20) mg/dL Glucose (74-99) mg/dL POC Glucose (mg/dL) 129 H 112 H 175 H (75-99) mg/dL Calcium (8.4-10.2) mg/dL Total Protein (6.3-8.2) g/dL Albumin (3.5-5.0) g/dL CSF RBC (0-10) u/L CSF Glucose (40-70) mg/dL CSF Total Protein (12-60) mg/dL 03/26/20 03/26/20 Range/Units 04:31 08:34 Potassium 3.4 L (3.5-5.1) mmol/L Chloride 111 H (98-107) mmol/L BUN 22 H (9-20) mg/dL Glucose 179 H (74-99) mg/dL POC Glucose (mg/dL) 107 H (75-99) mg/dL Calcium 8.0 L (8.4-10.2) mg/dL Total Protein 5.5 L (6.3-8.2) g/dL Albumin 2.8 L (3.5-5.0) g/dL CSF RBC (0-10) u/L CSF Glucose (40-70) mg/dL CSF Total Protein (12-60) mg/dL Microbiology - Last 24 Hours (Table) 03/25/20 09:15 CSF Gram Stain - Preliminary Cerebral Spinal Fluid CSF Culture - Preliminary 03/22/20 21:21 Blood Culture - Preliminary Blood No Growth after 72 hours Assessment and Plan Assessment: 1 acute COVID 19 infection/pneumonia. No significant respiratory distress. Nevertheless, the patient has better pulmonary infiltrates and the patient has constitutional symptoms and altered mentation and severe dehydration and acute kidney injury, PROBABLY complications of this viral infection.the patient does not have any significant respiratory distress. He is on room air oxygen on today's evaluation with a pulse ox of 99-100%. 2 acute kidney injury, improving creatinine and the renal function has recovered. 3 altered mental status with episodic encephalopathy, likely secondary to above, also consider metabolic encephalopathy or viral encephalopathy. Patient is an EEG yesterday that showed background slowing consistent with moderate to severe encephalopathy amount. Etiology. Lumbar puncture was performed today. 4 severe anion gap metabolic acidosis, recovered and serum bicarbonate normalized 5 diabetes mellituscurrently on Lantus insulin for blood sugar control 6 hyperlipidemia 7 hypertension Plan She was seen and evaluated by Dr. Guan We will attempt to wean down and off the Precedex Continue current antibiotics Continue Lovenox, Decadron, vitamin supplements I, the cosigning physician, performed a history & physical examination of the patient. Lungs sounds are clear. Maintaining good O2 saturations in the 90s on room air. I discussed the assessment and plan of care with my nurse practitioner, Haydee Ling. I attest to the above note as dictated by her.
--- NOTE | 2020-03-26 11:02 | P.PN ---
Subjective Progress Note Date: 03/26/20 Pt's mentation is improved today, he is more interactive with me and answers questions appropriately. He asks about what caused all this, asks to have restraints removed. Still requiring precedex and pulling at garcia. Objective - Vital Signs Vital signs: Vital Signs Temp 98.2 F 03/26/20 08:00 Pulse 124 H 03/26/20 10:00 Resp 26 H 03/26/20 10:00 BP 141/88 03/26/20 10:00 Pulse Ox 98 03/26/20 10:00 Intake & Output 03/25/20 03/26/20 03/26/20 18:59 06:59 18:59 Intake Total 1200 1450 300 Output Total 1310 1245 250 Balance -110 205 50 Weight 64 kg Intake: IV 1200 1450 300 Acyclovir Sodium 500 mg 100 In Sodium Chloride 0.9% 100 ml @ 100 mls/hr IVPB Q12HR [facility] Rx#:[id number] Dextrose 5% in Water 1, 1200 1300 300 000 ml @ 100 mls/hr IV . Q10H [facility] Rx#:[id number] cefTRIAXone 1 gm In 50 Sodium Chloride 0.9% 50 ml @ 100 mls/hr IVPB Q12HR [facility] Rx#:[id number] Output: Urine 1310 1245 250 Other: Voiding Method Indwelling Catheter Indwelling Catheter Indwelling Catheter - Exam Gen: awake, alert HEENT: normocephalic, atraumatic, good hearing acuity, moist mucous membranes Resp: good air exchange, breathing comfortably with no accessory muscle use CVS: good distal perfusion x 4, GI: soft, NTTP, ND : no SPT, no CVAT, garcia catheter is present MSK: no pitting edema, no clubbing Neuro: non-focal, moving all extremities - Labs CBC & Chem 7: 03/26/20 04:31 03/26/20 04:31 Labs: Abnormal Lab Results - Last 24 Hours (Table) 03/25/20 03/25/20 03/25/20 Range/Units 09:15 12:34 18:06 Potassium (3.5-5.1) mmol/L Chloride (98-107) mmol/L BUN (9-20) mg/dL Glucose (74-99) mg/dL POC Glucose (mg/dL) 119 H 217 H (75-99) mg/dL Calcium (8.4-10.2) mg/dL Total Protein (6.3-8.2) g/dL Albumin (3.5-5.0) g/dL CSF RBC 244 H (0-10) u/L CSF Glucose 114 H (40-70) mg/dL CSF Total Protein 85 H (12-60) mg/dL 03/25/20 03/25/20 03/26/20 Range/Units 20:05 23:15 04:01 Potassium (3.5-5.1) mmol/L Chloride (98-107) mmol/L BUN (9-20) mg/dL Glucose (74-99) mg/dL POC Glucose (mg/dL) 129 H 112 H 175 H (75-99) mg/dL Calcium (8.4-10.2) mg/dL Total Protein (6.3-8.2) g/dL Albumin (3.5-5.0) g/dL CSF RBC (0-10) u/L CSF Glucose (40-70) mg/dL CSF Total Protein (12-60) mg/dL 03/26/20 03/26/20 Range/Units 04:31 08:34 Potassium 3.4 L (3.5-5.1) mmol/L Chloride 111 H (98-107) mmol/L BUN 22 H (9-20) mg/dL Glucose 179 H (74-99) mg/dL POC Glucose (mg/dL) 107 H (75-99) mg/dL Calcium 8.0 L (8.4-10.2) mg/dL Total Protein 5.5 L (6.3-8.2) g/dL Albumin 2.8 L (3.5-5.0) g/dL CSF RBC (0-10) u/L CSF Glucose (40-70) mg/dL CSF Total Protein (12-60) mg/dL Microbiology - Last 24 Hours (Table) 03/25/20 09:15 CSF Gram Stain - Preliminary Cerebral Spinal Fluid CSF Culture - Preliminary 03/22/20 21:21 Blood Culture - Preliminary Blood No Growth after 72 hours Assessment and Plan Assessment: 1. Mixed Encephalopathy, metabolic and septic 2. Diabetic Ketoacidosis, resolved 3. COVID 19 4. ATIF 5. Hypertension, essential 6. Hyperlipidemia 59 year old man with HTN/HLD/DM presented with hyperactive delirium, poor PO intake for 10 days, and high anion gap metabolic acidosis and was noted to be COVID positive with multifactorial encephalopathy. He was admitted to the ICU for treatment with precedex gtt for agitation, and was started on broad spectrum meningitis coverage + acyclovir for encephalitis coverage. Altered mental status with severe high anion gap metabolic acidosis and severe sepsis -Differentials include toxic metabolic encephalopathy secondary to severe dehydration from DKA in setting of COVID-19 infection (SGLT 2 inhibitors in setting of hypovolemia can cause euglycemic DKA) vs severe sepsis from meningitis/encephalitis vs salicylate poisoning (levels negative) -Neurology consult, appreciate recs - LP results pending -Acetone levels pending with UA showing ketones, improving -Bicarbonate infusion -Continue with insulin infusion w/ blood glucose monitoring q1h -Monitor electrolytes -C/w empiric antibiotics w/ Ceftriaxone and Acyclovir -IVFs -ID and Neuro consults -F/u Lactate levels -Neurochecks COVID 19 -Current SpO2 99% on RA -Not a candidate for dexamethasone ATIF -Likely secondary to severe dehydration -Management as per above -ULytes, pending -Renal/Bladder US unremarkable DVT prophylaxis -Lovenox subq The patient is admitted with an anticipated greater than 2 midnight stay for evaluation of AMS CODE STATUS: Full Code Discussed with: Patient Anticipated discharge date: 4-[address]: Home
[2020-03-26 11:44] LABS: Glucose,Whole Blood 113 mg/dL (75-99)
--- NOTE | 2020-03-26 13:38 | P.PN ---
Subjective Progress Note Date: 03/26/20 Follow-up for acute kidney injury and hypernatremia, Currently in ICU for Covid-19. Objective - Vital Signs Vital signs: Vital Signs Temp 98.2 F 03/26/20 08:00 Pulse 105 H 03/26/20 12:00 Resp 16 03/26/20 12:00 BP 112/95 03/26/20 12:00 Pulse Ox 97 03/26/20 12:00 Intake & Output 03/25/20 03/26/20 03/26/20 18:59 06:59 18:59 Intake Total 1200 1450 500 Output Total 1310 1245 510 Balance -110 205 -10 Weight 64 kg Intake: IV 1200 1450 500 Acyclovir Sodium 500 mg 100 In Sodium Chloride 0.9% 100 ml @ 100 mls/hr IVPB Q12HR [facility] Rx#:[id number] Dextrose 5% in Water 1, 1200 1300 500 000 ml @ 100 mls/hr IV . Q10H [facility] Rx#:[id number] cefTRIAXone 1 gm In 50 Sodium Chloride 0.9% 50 ml @ 100 mls/hr IVPB Q12HR [facility] Rx#:[id number] Output: Urine 1310 1245 510 Other: Voiding Method Indwelling Catheter Indwelling Catheter Indwelling Catheter - Exam Limited secondary to covid-19 pandemic and to limit PPE. - Labs CBC & Chem 7: 03/26/20 04:31 03/26/20 04:31 Labs: Abnormal Lab Results - Last 24 Hours (Table) 03/25/20 03/25/20 03/25/20 Range/Units 09:15 18:06 20:05 Potassium (3.5-5.1) mmol/L Chloride (98-107) mmol/L BUN (9-20) mg/dL Glucose (74-99) mg/dL POC Glucose (mg/dL) 217 H 129 H (75-99) mg/dL Calcium (8.4-10.2) mg/dL Total Protein (6.3-8.2) g/dL Albumin (3.5-5.0) g/dL CSF RBC 244 H (0-10) u/L CSF Glucose 114 H (40-70) mg/dL CSF Total Protein 85 H (12-60) mg/dL 03/25/20 03/26/20 03/26/20 Range/Units 23:15 04:01 04:31 Potassium 3.4 L (3.5-5.1) mmol/L Chloride 111 H (98-107) mmol/L BUN 22 H (9-20) mg/dL Glucose 179 H (74-99) mg/dL POC Glucose (mg/dL) 112 H 175 H (75-99) mg/dL Calcium 8.0 L (8.4-10.2) mg/dL Total Protein 5.5 L (6.3-8.2) g/dL Albumin 2.8 L (3.5-5.0) g/dL CSF RBC (0-10) u/L CSF Glucose (40-70) mg/dL CSF Total Protein (12-60) mg/dL 03/26/20 03/26/20 Range/Units 08:34 11:43 Potassium (3.5-5.1) mmol/L Chloride (98-107) mmol/L BUN (9-20) mg/dL Glucose (74-99) mg/dL POC Glucose (mg/dL) 107 H 113 H (75-99) mg/dL Calcium (8.4-10.2) mg/dL Total Protein (6.3-8.2) g/dL Albumin (3.5-5.0) g/dL CSF RBC (0-10) u/L CSF Glucose (40-70) mg/dL CSF Total Protein (12-60) mg/dL Microbiology - Last 24 Hours (Table) 03/25/20 09:15 CSF Gram Stain - Preliminary Cerebral Spinal Fluid CSF Culture - Preliminary 03/22/20 21:21 Blood Culture - Preliminary Blood No Growth after 72 hours Assessment and Plan Assessment: #1 acute kidney injury and hyponatremia secondary to volume depletion leading to prerenal physiology. #2 COVID-19 Pneumonia #3 hyponatremia improving #4 encephalopathy secondary to metabolic/infectious Plan: #1 continue with D5 water at 100 ML's an hour. Plan to decrease to 50 ML's based on the serum sodium. If eating and drinking stop IV fluids. #2 avoid nephrotoxic agents and hypotensive episodes
[2020-03-26] MEDS ORDERED: DEXMEDETOMIDINE/0.9% NACL(PMX) 400 MCG in EMPTY BAG 1 BAG IV SCH (15:30)
[2020-03-26 15:45] LABS: Glucose,Whole Blood 141 mg/dL (75-99)
[2020-03-26 21:20] LABS: Glucose,Whole Blood 161 mg/dL (75-99)
--- NOTE | 2020-03-26 22:19 | PN ---
PROGRESS NOTE DATE OF SERVICE: 03/26/2020 REASON FOR FOLLOW UP: Encephalitis and question of pneumonia. INTERVAL HISTORY: The patient remains to be afebrile this morning. The patient was more awake and alert. He was able to know he is in the hospital and knows his . Subsequent did have some agitation for which the patient has been sedated. At time of my evaluation the patient was unable to provide any history. No vomiting or diarrhea has been reported by nursing staff. PHYSICAL EXAMINATION: Blood pressure 108/68 with a pulse of 88, temperature 98. He is 96% on room air. General description is a middle-aged male lying in bed in no distress. Respiratory system: Unlabored breathing with decreased breath sounds in the base, with no wheeze. Heart S1, S2. Regular rate and rhythm. Abdomen soft, no tenderness. LABS: BUN of 22, creatinine ( ). White count normalized. ( ) is currently pending. DIAGNOSTIC IMPRESSION AND PLAN: 1. Patient with mental status changes/encephalitis. The patient did have COVID-19 infection. We are waiting for the ( ). Continue with acyclovir for now. 2. Patient with COVID-19 pneumonia, currently covered with dexamethasone, Lovenox. Repeat chest x-ray tomorrow and continue supportive care. MMODL / IJN: [id number] /
[2020-03-27 00:21] LABS: Glucose,Whole Blood 146 mg/dL (75-99)
[2020-03-27] MEDS: DOXYCYCLINE 100 MG CAP PO SCH ×3 (00:52→20:36)
[2020-03-27] MEDS: INSULIN ASPART (NovoLOG) 100 UNIT/ML VIAL SQ SCH ×6 (00:53→22:36)
[2020-03-27 04:07] LABS: Glucose,Whole Blood 159 mg/dL (75-99)
[2020-03-27 05:13] LABS: Albumin 2.8 g/dL (3.5-5.0); Calcium 8.3 mg/dL (8.4-10.2); Potassium 3.6 mmol/L (3.5-5.1); Total Bilirubin 1.1 mg/dL (0.2-1.3); Total Protein 5.6 g/dL (6.3-8.2)
[2020-03-27] MEDS ORDERED: POTASSIUM CHLORIDE ER 20 MEQ TAB.ER PO SCH (07:00)
--- NOTE | 2020-03-27 07:55 | P.PN ---
Subjective Progress Note Date: 03/27/20 03/27/2020, the patient's sensorium is gradually clearing up. Nevertheless, he is still restless and squirming and he tries to move around in bed. The patient was gradually wean of the Precedex and currently the sedative medications on hold. He is afebrile. No neck stiffness. Lumbar puncture was negative. He is a case of coronavirus Covid 19 infection. The blood work essentially within normal limits. His blood sugars under tighter control and the patient is currently on NovoLog findings. Coverage and the patient has adequate blood sugar coverage for now. Is also taking Levemir 10 units as maintenance. He is on 6 mg of Decadron regarding his coronavirus infection. He remains on acyclovir pending the CSF HSV by PCR. He is also on empiric antibiotic coverage with IV Rocephin. Cultures of been all negative. Does not required any Haldol. Clinically gradually improving. Objective - Vital Signs Vital signs: Vital Signs Temp 97.8 F 03/27/20 04:00 Pulse 103 H 03/27/20 07:00 Resp 13 03/27/20 07:00 BP 135/94 03/27/20 07:00 Pulse Ox 97 03/27/20 03:00 Intake & Output 03/26/20 03/27/20 03/27/20 18:59 06:59 18:59 Intake Total 6653.112 4325 100 Output Total 1320 1265 100 Balance -219.787 35 0 Weight 62.3 kg Intake: IV 1100 1300 100 Acyclovir Sodium 500 mg 100 In Sodium Chloride 0.9% 100 ml @ 100 mls/hr IVPB Q12HR [facility] Rx#:[id number] Dextrose 5% in Water 1, 1100 1200 100 000 ml @ 100 mls/hr IV . Q10H [facility] Rx#:[id number] Intake, IV Titration 0.213 Amount Dexmedetomidine/0.9% NaCl 0.213 (Pmx) 400 mcg In Empty Bag 1 bag @ Titrate IV . Q0M [facility] Rx#:[id number] Output: Urine 1320 1265 100 Other: Voiding Method Indwelling Catheter Indwelling Catheter - Exam the patient is able to hold a conversation. His restless in bed. He is not aware of his location. His speech is less garbled. Nevertheless, the patient is moving all 4 extremities without any limitation. No neck stiffness.he only states few words. He remains confused. He is currently off Precedex. He is gradually getting his mentation and sensorium. He is alert and oriented to place and year and the president of [facility] and his name and his 's name and he is able to answer these questions appropriately. Head exam was generally normal. There was no scleral icterus or corneal arcus. Mucous membranes were moist. Neck was supple and without jugular venous distension, thyromegaly, or carotid bruits. Carotids were easily palpable bilaterally. There was no adenopathy. Lungs sounds are diminished in the suspected lung bases bilaterally Cardiac exam revealed the PMI to be normally situated and sized. The rhythm was regular and no extrasystoles were noted during several minutes of auscultation. The first and second heart sounds were normal and physiologic splitting of the second heart sound was noted. There were no murmurs, rubs, clicks, or gallops.] Abdominal exam revealed normal bowel sounds. The abdomen was soft, non-tender, and without masses, organomegaly, or appreciable enlargement of the abdominal ao rta. Examination of the extremities revealed easily palpable radial, femoral and pedal pulses. There was no cyanosis, clubbing or edema. Examination of the skin revealed no evidence of significant rashes, suspicious appearing nevi or other concerning lesions. Neurologically his exam is nonfocal. Pupils are equal and reactive to light. No facial asymmetry. Reflexes are symmetrical. - Labs CBC & Chem 7: 03/26/20 04:31 03/27/20 04:03 Labs: Abnormal Lab Results - Last 24 Hours (Table) 03/26/20 03/26/20 03/26/20 Range/Units 08:34 11:43 15:43 Glucose (74-99) mg/dL POC Glucose (mg/dL) 107 H 113 H 141 H (75-99) mg/dL Calcium (8.4-10.2) mg/dL Total Protein (6.3-8.2) g/dL Albumin (3.5-5.0) g/dL 03/26/20 03/27/20 03/27/20 Range/Units 21:18 00:20 04:03 Glucose 173 H (74-99) mg/dL POC Glucose (mg/dL) 161 H 146 H (75-99) mg/dL Calcium 8.3 L (8.4-10.2) mg/dL Total Protein 5.6 L (6.3-8.2) g/dL Albumin 2.8 L (3.5-5.0) g/dL 03/27/20 Range/Units 04:05 Glucose (74-99) mg/dL POC Glucose (mg/dL) 159 H (75-99) mg/dL Calcium (8.4-10.2) mg/dL Total Protein (6.3-8.2) g/dL Albumin (3.5-5.0) g/dL Microbiology - Last 24 Hours (Table) 03/22/20 21:21 Blood Culture - Preliminary Blood No Growth after 96 hours 03/25/20 09:15 CSF Gram Stain - Preliminary Cerebral Spinal Fluid CSF Culture - Preliminary Assessment and Plan Plan: 1 acute COVID 19 infection/pneumonia. No significant respiratory distress. Nevertheless, the patient has better pulmonary infiltrates and the patient has constitutional symptoms and altered mentation and severe dehydration and acute kidney injury, PROBABLY complications of this viral infection.the patient does not have any significant respiratory distress. He is on room air oxygen on today's evaluation with a pulse ox of 99-100%. 2 acute kidney injury, improving creatinine and the renal function has recovered. 3 altered mental status with episodic encephalopathy, likely secondary to COVID 19, also consider metabolic encephalopathy or viral encephalopathy. Patient is an EEG yesterday that showed background slowing consistent with moderate to severe encephalopathy amount. I performed a lumbar puncture on this patient. HSV by PCR is still pending. The patient is still kept on IV acyclovir. Meanwhile, the lumbar puncture was essentially negative with a low cell count. The protein was slightly elevated. Keep acyclovir pending the HSV by PCR. The patient is less agitated. The patient is currently off Precedex. 4 severe anion gap metabolic acidosis, recovered and serum bicarbonate normalized 5 diabetes mellitus, currently on Lantus insulin for blood sugar control 6 hyperlipidemia 7 hypertension Plan continue IV fluids continue Lantus insulin along with a sliding scale coverage Renal function improved and normalized Continue IV Decadron lumbar puncture was performed and this will be sent for analysis, results are preliminary negative. Awaiting HSV by PCR. Continue acyclovir for now. EKG was noted The patient is currently off Precedex. Neurologic input is appreciated. Overall condition is stable. He can be transferred out of the intensive care unit with a sitter. We'll continue to follow.
[2020-03-27 09:24] LABS: Glucose,Whole Blood 176 mg/dL (75-99)
[2020-03-27] MEDS: INSULIN DETEMIR (LEVEMIR) 100 UNIT/ML SYR SQ SCH (09:55)
[2020-03-27] MEDS: DEXAMETHASONE SOD PHOSPHATE 10 MG/ML 1 ML VIAL IV SCH (09:56)
[2020-03-27] MEDS: FAMOTIDINE 20 MG/2 ML VIAL IV SCH (09:56)
[2020-03-27] MEDS: ENOXAPARIN 40 MG/0.4 ML SYRINGE SQ SCH (09:56)
[2020-03-27] MEDS: ACYCLOVIR SODIUM 500 MG in SODIUM CHLORIDE 0.9% 100 ML IVPB SCH ×2 (09:56→20:21)
[2020-03-27] MEDS: DEXTROSE 5% IN WATER 1,000 ML IV SCH ×2 (11:14→18:08)
[2020-03-27] MEDS: THIAMINE 100 MG in SODIUM CHLORIDE 0.9% 50 ML IVPB SCH (11:14)
--- NOTE | 2020-03-27 11:36 | P.PN ---
Subjective Progress Note Date: 03/27/20 No new complaints today. Patient is interacting much better. Still appears confused, but improving. No longer in restraints, garcia catheter pulled. Objective - Vital Signs Vital signs: Vital Signs Temp 97.9 F 03/27/20 09:00 Pulse 101 H 03/27/20 11:00 Resp 14 03/27/20 11:00 BP 135/69 03/27/20 11:00 Pulse Ox 97 03/27/20 03:00 Intake & Output 03/26/20 03/27/20 03/27/20 18:59 06:59 18:59 Intake Total 9678.348 7978 100 Output Total 1320 1265 100 Balance -219.787 35 0 Weight 62.3 kg Intake: IV 1100 1300 100 Acyclovir Sodium 500 mg 100 In Sodium Chloride 0.9% 100 ml @ 100 mls/hr IVPB Q12HR [facility] Rx#:[id number] Dextrose 5% in Water 1, 1100 1200 100 000 ml @ 100 mls/hr IV . Q10H [facility] Rx#:[id number] Intake, IV Titration 0.213 Amount Dexmedetomidine/0.9% NaCl 0.213 (Pmx) 400 mcg In Empty Bag 1 bag @ Titrate IV . Q0M [facility] Rx#:[id number] Output: Urine 1320 1265 100 Other: Voiding Method Indwelling Catheter Indwelling Catheter - Exam Gen: awake, alert HEENT: normocephalic, atraumatic, good hearing acuity, moist mucous membranes Resp: good air exchange, breathing comfortably with no accessory muscle use CVS: good distal perfusion x 4, GI: soft, NTTP, ND : no SPT, no CVAT, garcia catheter is present MSK: no pitting edema, no clubbing Neuro: non-focal, moving all extremities - Labs CBC & Chem 7: 03/26/20 04:31 03/27/20 04:03 Labs: Abnormal Lab Results - Last 24 Hours (Table) 03/26/20 03/26/20 03/26/20 Range/Units 11:43 15:43 21:18 Glucose (74-99) mg/dL POC Glucose (mg/dL) 113 H 141 H 161 H (75-99) mg/dL Calcium (8.4-10.2) mg/dL Total Protein (6.3-8.2) g/dL Albumin (3.5-5.0) g/dL 03/27/20 03/27/20 03/27/20 Range/Units 00:20 04:03 04:05 Glucose 173 H (74-99) mg/dL POC Glucose (mg/dL) 146 H 159 H (75-99) mg/dL Calcium 8.3 L (8.4-10.2) mg/dL Total Protein 5.6 L (6.3-8.2) g/dL Albumin 2.8 L (3.5-5.0) g/dL 03/27/20 Range/Units 09:22 Glucose (74-99) mg/dL POC Glucose (mg/dL) 176 H (75-99) mg/dL Calcium (8.4-10.2) mg/dL Total Protein (6.3-8.2) g/dL Albumin (3.5-5.0) g/dL Microbiology - Last 24 Hours (Table) 03/25/20 09:15 CSF Gram Stain - Preliminary Cerebral Spinal Fluid CSF Culture - Preliminary 03/22/20 21:21 Blood Culture - Preliminary Blood No Growth after 96 hours Assessment and Plan Assessment: 1. Mixed Encephalopathy, metabolic and septic 2. Diabetic Ketoacidosis, resolved 3. COVID 19 4. ATIF 5. Hypertension, essential 6. Hyperlipidemia 59 year old man with HTN/HLD/DM presented with hyperactive delirium, poor PO intake for 10 days, and high anion gap metabolic acidosis and was noted to be COVID positive with multifactorial encephalopathy. He was admitted to the ICU for treatment with precedex gtt for agitation, and was started on broad spectrum meningitis coverage + acyclovir for encephalitis coverage. An MRI with s ignificant motion artifact ruled out large stroke, but was a poor study. LP was done and negative for bacterial meningitis, but HSV is still pending. Patient had been improving in regard to his mentation and weaned off of the precedex gtt, however, etiology of encephalopathy is still unclear. ID recommended continuing acyclovir coverage, and patient also remains on dexamethasone, acyclovir, doxycycline. Altered mental status with severe high anion gap metabolic acidosis and severe sepsis -Differentials include toxic metabolic encephalopathy secondary to severe dehydration from DKA in setting of COVID-19 infection (SGLT 2 inhibitors in setting of hypovolemia can cause euglycemic DKA) vs severe sepsis from meningitis/encephalitis vs salicylate poisoning (levels negative) -Neurology consult, appreciate recs - LP results pending -Acetone levels pending with UA showing ketones, improving -Bicarbonate infusion -Continue with insulin infusion w/ blood glucose monitoring q1h -Monitor electrolytes -C/w empiric antibiotics w/ Ceftriaxone and Acyclovir -IVFs -ID and Neuro consults -F/u Lactate levels -Neurochecks COVID 19 -Current SpO2 99% on RA -currently on dexamethasone since 03/23 ATIF -Likely secondary to severe dehydration -Management as per above -ULytes, pending -Renal/Bladder US unremarkable DVT prophylaxis -Lovenox subq The patient is admitted with an anticipated greater than 2 midnight stay for evaluation of AMS CODE STATUS: Full Code Discussed with: Patient Anticipated discharge date: 4-[address]: Home
[2020-03-27] MEDS: SODIUM CHLORIDE 0.9% 1,000 ML IV SCH (12:14)
[2020-03-27 15:09] LABS: Glucose,Whole Blood 201 mg/dL (75-99)
--- NOTE | 2020-03-27 17:47 | P.PN ---
Subjective Progress Note Date: 03/27/20 The patient is seen in neurologic follow-up on March 27, 2020, via teleneurology. Mr. Tidwell reports feeling "tired". He is however feeling better. He said that his breathing is better. His appetite has improved. He did eat some dinner. Objective - Vital Signs Vital signs: Vital Signs Temp 98 F 03/27/20 12:11 Pulse 97 03/27/20 16:27 Resp 20 03/27/20 16:27 BP 121/81 03/27/20 16:27 Pulse Ox 98 03/27/20 16:27 Intake & Output 03/26/20 03/27/20 03/27/20 18:59 06:59 18:59 Intake Total 3489.568 2169 150 Output Total 1320 1265 400 Balance -219.787 35 -250 Weight 62.3 kg Intake: IV 1100 1300 100 Acyclovir Sodium 500 mg 100 In Sodium Chloride 0.9% 100 ml @ 100 mls/hr IVPB Q12HR [facility] Rx#:[id number] Dextrose 5% in Water 1, 1100 1200 100 000 ml @ 100 mls/hr IV . Q10H [facility] Rx#:[id number] Intake, IV Titration 0.213 50 Amount Dexmedetomidine/0.9% NaCl 0.213 (Pmx) 400 mcg In Empty Bag 1 bag @ Titrate IV . Q0M [facility] Rx#:[id number] Thiamine 100 mg In Sodium 50 Chloride 0.9% 50 ml @ 100 mls/hr IVPB DAILY [facility] Rx#:[id number] Output: Urine 1320 1265 400 Other: Voiding Method Indwelling Catheter Indwelling Catheter # Voids 1 - Exam Gen.: Patient is reclining in the bed. He is well-nourished, well-developed and in no acute distress. HEENT: Head is atraumatic, normocephalic. Fundus not visualized. There is no scleral icterus. Mucous members are moist. Neurological examination Mental status: The patient is awake, alert and oriented 3. His speech is clear. The patient receives a phone call while we're present in the room. After speaking on the phone, the patient becomes tearful. Cranial nerves: 2-12 intact as tested - Labs CBC & Chem 7: 03/26/20 04:31 03/27/20 04:03 Labs: Abnormal Lab Results - Last 24 Hours (Table) 03/26/20 03/27/20 03/27/20 Range/Units 21:18 00:20 04:03 Glucose 173 H (74-99) mg/dL POC Glucose (mg/dL) 161 H 146 H (75-99) mg/dL Calcium 8.3 L (8.4-10.2) mg/dL Total Protein 5.6 L (6.3-8.2) g/dL Albumin 2.8 L (3.5-5.0) g/dL 03/27/20 03/27/20 03/27/20 Range/Units 04:05 09:22 15:08 Glucose (74-99) mg/dL POC Glucose (mg/dL) 159 H 176 H 201 H (75-99) mg/dL Calcium (8.4-10.2) mg/dL Total Protein (6.3-8.2) g/dL Albumin (3.5-5.0) g/dL Microbiology - Last 24 Hours (Table) 03/25/20 09:15 CSF Gram Stain - Preliminary Cerebral Spinal Fluid CSF Culture - Preliminary 03/22/20 21:21 Blood Culture - Preliminary Blood No Growth after 96 hours Assessment and Plan Assessment: 1. Toxic metabolic encephalopathy secondary to infection, acidosis, electrolyte imbalance and renal failure Plan: 1. Continue your medical treatment 2. No further neurologic intervention is indicated at this time Thank you for allowing me to participate in the care of this patient Time with Patient: Less than 30 (spent 25 minutes with the patient via teleneurology)
[2020-03-27 18:04] LABS: Glucose,Whole Blood 112 mg/dL (75-99)
[2020-03-27 22:05] LABS: Glucose,Whole Blood 154 mg/dL (75-99)
--- NOTE | 2020-03-28 02:03 | PN ---
PROGRESS NOTE DATE OF SERVICE: 03/27/2020 REASON FOR FOLLOWUP: 1. COVID-19 infection. 2. Encephalopathy. INTERVAL HISTORY: The patient is currently afebrile. The patient is more awake and alert, has been moved out of the ICU. The patient denies having any headache. No chest pain or shortness of breath. Minimal cough. No abdominal pain or diarrhea. PHYSICAL EXAMINATION: Blood pressure 121/81 with a pulse of 97, temperature 98. He is 98% on room air. General description is a middle-aged male lying in bed in no distress. RESPIRATORY SYSTEM: Unlabored breathing, decreased intensity of breath sounds. No wheeze. HEART: S1, S2. Regular rate and rhythm. ABDOMEN: Soft, no tenderness. LABS: BUN of 19, creatinine 1.05. HSV PCRcurrently pending. DIAGNOSTIC IMPRESSION AND PLAN: 1. Patient admitted to the hospital with encephalitis waiting for the viral studies. Continue acyclovir. 2. Patient with COVID-19 infection for which the patient has been treated with Lovenox, dexamethasone, zinc ,continue and monitor his clinical course closely. MMODL / IJN: [id number] / MTDD
[2020-03-28 02:12] LABS: Glucose,Whole Blood 152 mg/dL (75-99)
[2020-03-28] MEDS: INSULIN ASPART (NovoLOG) 100 UNIT/ML VIAL SQ SCH ×4 (02:59→15:24)
[2020-03-28 05:56] LABS: Glucose,Whole Blood 134 mg/dL (75-99)
[2020-03-28] MEDS: DEXTROSE 5% IN WATER 1,000 ML IV SCH ×2 (07:24→14:54)
[2020-03-28] MEDS: INSULIN DETEMIR (LEVEMIR) 100 UNIT/ML SYR SQ SCH (08:41)
[2020-03-28] MEDS: FAMOTIDINE 20 MG/2 ML VIAL IV SCH (08:42)
[2020-03-28] MEDS: ENOXAPARIN 40 MG/0.4 ML SYRINGE SQ SCH (08:43)
[2020-03-28] MEDS: DOXYCYCLINE 100 MG CAP PO SCH (08:43)
[2020-03-28] MEDS: THIAMINE 100 MG in SODIUM CHLORIDE 0.9% 50 ML IVPB SCH (08:46)
[2020-03-28 09:33] LABS: African American GFR (CKD) 83.5 (60.0-200.0); Albumin 3.4 g/dL (3.80-4.90); Albumin/Globulin Ratio 1.55 (1.60-3.17); Anion Gap 13.8 mmol/L (4.00-12.00); BUN/Creat Ratio 16.36 Ratio (12.00-20.00); Carbon Dioxide 25.2 mmol/L (21.6-31.8); Globulin 2.2 g/dL (1.6-3.3); Non-African American GFR(CKD) 72.1 (60.0-200.0); Potassium 3.6 mmol/L (3.5-5.5); Total Bilirubin 0.9 mg/dL (0.3-1.2); Total Protein 5.6 g/dL (6.2-8.2)
[2020-03-28] MEDS: ACYCLOVIR SODIUM 500 MG in SODIUM CHLORIDE 0.9% 100 ML IVPB SCH (09:47)
[2020-03-28 10:11] LABS: Glucose,Whole Blood 281 mg/dL (75-99)
[2020-03-28] MEDS: DEXAMETHASONE SOD PHOSPHATE 10 MG/ML 1 ML VIAL IV SCH (10:33)
[2020-03-28 12:33] VITALS: BP 122/77; PULSE 104; RESP 18; TEMP 97.6
[2020-03-28 12:51] VITALS: BMI 22.1
--- NOTE | 2020-03-28 13:23 | P.PN ---
Subjective Patient is seen in follow-up for acute kidney injury. Renal function stable. Creatinine 1.1 today. Oral intake is fair. Sodium level 144 this morning. No chest pain or shortness of breath. He has been voiding. Vital signs are stable. General: The patient appeared well nourished and normally developed. HEENT: Head exam is unremarkable. Neck is without jugular venous distension. LUNGS: Breath sounds decreased. HEART: Rate and Rhythm are regular. ABDOMEN: Soft, nontender. EXTREMITITES: No edema. Objective - Vital Signs Vital signs: Vital Signs Temp 97.6 F 03/28/20 11:10 Pulse 104 H 03/28/20 11:10 Resp 18 03/28/20 11:10 BP 122/77 03/28/20 11:10 Pulse Ox 97 03/28/20 11:10 Intake & Output 03/27/20 03/28/20 03/28/20 18:59 06:59 18:59 Intake Total 150 400 Output Total 400 300 Balance -250 400 -300 Weight 62.3 kg Intake: IV 100 Dextrose 5% in Water 1, 100 000 ml @ 100 mls/hr IV . Q10H ANABELLA Rx#:[id number] Intake, IV Titration 50 Amount Thiamine 100 mg In Sodium 50 Chloride 0.9% 50 ml @ 100 mls/hr IVPB DAILY ANABELLA Rx#:[id number] Oral 400 Output: Urine 400 300 Other: Voiding Method Toilet # Voids 1 3 3 # Bowel Movements 3 3 - Labs CBC & Chem 7: 03/26/20 04:31 03/28/20 05:17 Labs: Abnormal Lab Results - Last 24 Hours (Table) 03/27/20 03/27/20 03/27/20 Range/Units 15:08 18:03 22:00 Anion Gap (4.00-12.00) mmol/L Glucose (70-110) mg/dL POC Glucose (mg/dL) 201 H 112 H 154 H (75-99) mg/dL Total Protein (6.2-8.2) g/dL Albumin (3.80-4.90) g/dL Albumin/Globulin Ratio (1.60-3.17) g/dL 03/28/20 03/28/20 03/28/20 Range/Units 02:10 05:17 05:45 Anion Gap 13.80 H (4.00-12.00) mmol/L Glucose 116 H (70-110) mg/dL POC Glucose (mg/dL) 152 H 134 H (75-99) mg/dL Total Protein 5.6 L (6.2-8.2) g/dL Albumin 3.40 L (3.80-4.90) g/dL Albumin/Globulin Ratio 1.55 L (1.60-3.17) g/dL 03/28/20 Range/Units 10:08 Anion Gap (4.00-12.00) mmol/L Glucose (70-110) mg/dL POC Glucose (mg/dL) 281 H (75-99) mg/dL Total Protein (6.2-8.2) g/dL Albumin (3.80-4.90) g/dL Albumin/Globulin Ratio (1.60-3.17) g/dL Microbiology - Last 24 Hours (Table) 03/25/20 09:15 CSF Gram Stain - Preliminary Cerebral Spinal Fluid CSF Culture - Preliminary 03/22/20 21:21 Blood Culture - Preliminary Blood No Growth after 120 hours Assessment and Plan Plan: Assessment: 1. Acute kidney injury mostly prerenal improved with IV hydration. Creatinine 1.1 today. 2. Covid 19 pneumonia. Maintained on steroids. 3. Hypernatremia secondary to lack of oral water intake. 4. Diabetes mellitus. Plan: Encourage oral intake, including free water. Maintain D5W for now. Anticipate discharge soon. Repeat BMP and magnesium level 2-3 days postdischarge. Follow up outpatient in 1-2 weeks.
--- NOTE | 2020-03-28 14:44 | P.DS ---
Providers Date of admission: 03/22/20 20:00 Expected date of discharge: 03/28/20 Attending physician: Nancy Chambers MD Consults: 03/22/20 21:38 Consult Physician Urgent Consulting Provider: Lanre Bautista Consult Reason/Comments: AMS, severe sepsis Do you want consulting provider notified?: Yes 03/22/20 21:45 Consult Physician Urgent Consulting Provider: Duy Mendoza Consult Reason/Comments: AMS Do you want consulting provider notified?: Yes 03/23/20 02:00 Consult Physician Stat Consulting Provider: Mendoza Guan Consult Reason/Comments: ICU Management Do you want consulting provider notified?: Already Contacted 03/23/20 03:00 Consult Physician Urgent Consulting Provider: Randa Bryan Consult Reason/Comments: Acute renal failure with metabolic acidosis/sepsis Do you want consulting provider notified?: Yes 03/23/20 23:31 Consult to Anesthesia Routine Consulting Provider: Anesthesia,Services Consult Reason/Comments: LP/CSF Primary care physician: Stated None Hospital Course: 59 year old man with HTN/HLD/DM presented with hyperactive delirium, poor PO intake for 10 days, and high anion gap metabolic acidosis and was noted to be COVID positive with multifactorial encephalopathy. He was admitted to the ICU for treatment with precedex gtt for agitation, and was started on broad spectrum meningitis coverage + acyclovir for encephalitis coverage. An MRI with significant motion artifact ruled out large stroke, but was a poor study. LP was done and negative for any infectious etiology. Patient's overall condition improved significantly. His mental status was at his baseline on the day of discharge. He was cleared for discharge by other specialistsDariel Isidro of his medical problems. 1. Mixed Encephalopathy, metabolic and septic 2. Diabetic Ketoacidosis, resolved 3. COVID 19 4. ATIF 5. Hypertension, essential 6. Hyperlipidemia COVID 19 -Current SpO2 99% on RA -currently on dexamethasone to finish 10 days course. Add vitamin C, vitamin D, and zinc daily ATIF -Likely secondary to severe dehydration -Resolved with IV fluid hydration. Creatinine back to normal. Patient will be discharged home in a stable condition. For further details about this hospitalization please refer to the electronic chart. Time spent on discharge > 30 minutes including counseling and coordination of care Patient Condition at Discharge: Stable Plan - Discharge Summary New Discharge Prescriptions: New Dexamethasone 6 mg PO DAILY #4 tablet Ascorbic Acid [Vitamin C] 1,000 mg PO DAILY #14 tablet Cholecalciferol [Vitamin D3 (25 Mcg = 1000 Iu)] 2,000 unit PO DAILY #28 tablet Zinc Sulfate 220 mg PO DAILY #14 capsule Continue Atorvastatin [Lipitor] 10 mg PO HS metFORMIN HCL 1,000 mg PO BID Aspirin EC [Ecotrin Low Dose] 81 mg PO DAILY Ertugliflozin Pidolate [Steglatro] 15 mg PO DAILY Dapagliflozin Propanediol [Farxiga] 10 mg PO DAILY Discharge Medication List Aspirin EC [Ecotrin Low Dose] 81 mg PO DAILY 08/05/15 [History] Atorvastatin [Lipitor] 10 mg PO HS 08/05/15 [History] metFORMIN HCL 1,000 mg PO BID 08/05/15 [History] Dapagliflozin Propanediol [Farxiga] 10 mg PO DAILY 03/22/20 [History] Ertugliflozin Pidolate [Steglatro] 15 mg PO DAILY 03/22/20 [History] Ascorbic Acid [Vitamin C] 1,000 mg PO DAILY #14 tablet 03/28/20 [Rx] Cholecalciferol [Vitamin D3 (25 Mcg = 1000 Iu)] 2,000 unit PO DAILY #28 tablet 03/28/20 [Rx] Dexamethasone 6 mg PO DAILY #4 tablet 03/28/20 [Rx] Zinc Sulfate 220 mg PO DAILY #14 capsule 03/28/20 [Rx] Follow up Appointment(s)/Referral(s): Dmitriy Gloria MD [REFERRING] - 1 Week Discharge/Stand Alone Forms: Work/Release Restrictions Form Discharge Disposition: HOME SELF-CARE
[2020-03-28 15:16] LABS: Glucose,Whole Blood 305 mg/dL (75-99)
--- NOTE | 2020-03-28 15:38 | PN ---
PROGRESS NOTE PULMONARY/CRITICAL CARE PROGRESS NOTE: DATE OF SERVICE: 03/28/2020 This is a 59-year-old male who was admitted back on March 22. His admission diagnosis was that of acute COVID-19 infection/pneumonia. The patient apparently did not have much in the way of respiratory distress but did have pulmonary infiltrates on chest x-ray. In addition, the patient suffers from significant mental status changes, severe dehydration, acute kidney injury and some other abnormalities, including severe anion-gap metabolic acidosis. Currently the patient is on room air. He is not receiving any additional IV fluids other than saline at 20 mL/hour. He absolutely denies any lung issues, including shortness of breath, chest tightness, cough, wheezing, chest congestion and phlegm production. PHYSICAL EXAMINATION: VITAL SIGNS: Current vital signs are reviewed. Temperature is 97.6, heart rate 104, respiratory rate 18, blood pressure 122/77, mean 92, room-air saturation between 97% and 98%. GENERAL APPEARANCE: He appears in no acute distress. Certainly no respiratory distress. No supplemental oxygen. HEENT: Examination is grossly unremarkable. NECK: Supple. Full range of motion. No adenopathy or thyromegaly. Neck veins are flat. CARDIOVASCULAR: Examination reveals a regular rhythm and rate. S1, S2 normal. No S3, S4 or murmur. LUNGS: Lungs reveal a few scattered mild rhonchi. No wheezes or crackles. Breath sounds are equal bilaterally. ABDOMEN: Soft. Bowel sounds are heard. EXTREMITIES: Intact. No cyanosis, clubbing or edema. SKIN: Without rash. NEUROLOGIC: Neurologic examination is nonfocal. LABORATORY DATA: Reviewed. Sodium 144, potassium 3.6. Chloride is 105, CO2 25. Anion gap is 13.8. BUN and creatinine were 18 and 1.1. Albumin was 3.4. The rest of the labs are reviewed. Microbiology is currently all negative. No recent chest x-ray to report. MEDICATIONS: Reviewed. The patient is currently on acyclovir, Rocephin, Decadron, Vibramycin, Lovenox, famotidine, Haldol, insulin, Ativan, Narcan and thiamine. ASSESSMENT: 1. Acute COVID-19 pneumonia, without significant respiratory distress. 2. Severe mental status changes, with severe dehydration and acute kidney injury, much improved. 3. Acute kidney injury, improved. 4. Mental status changes, with encephalopathy; may relate to underlying COVID-19 infection versus viral encephalopathy such as herpes encephalitis. 5. Severe anion gap-metabolic acidosis, resolved. 6. Diabetes mellitus. 7. Hyperlipidemia. 8. Hypertension. PLAN: Currently the patient is doing well. His mental status seems to be significantly improved. Herpes simplex virus PCR and the cerebrospinal fluid is still pending. No additional recommendations are made. Legionella urinary antigen was negative. The rest of the studies look pretty normal. Will continue to follow. He is not receiving any supplemental oxygen. No additional recommendations are made. MMODL / IJN: [id number] /
--- NOTE | 2020-03-28 20:41 | P.PN ---
Progress Note - Text Progress Note Date: 03/28/20 REASON FOR FOLLOWUP: 1. COVID-19 infection. 2. Encephalopathy. INTERVAL HISTORY: The patient is afebrile. The patient is more awake and alert. The patient denies having any headache. No chest pain or shortness of breath. Minimal dry cough. No abdominal pain or diarrhea. pt feeling better and wants to go home PHYSICAL EXAMINATION: Blood pressure 120/81 with a pulse of 97, temperature 98. He is 98% on room air. General description is a middle-aged male lying in bed in no distress. RESPIRATORY SYSTEM: Unlabored breathing, decreased intensity of breath sounds. No wheeze. HEART: S1, S2. Regular rate and rhythm. ABDOMEN: Soft, no tenderness. LABS: HSV and VZV PCR negative. DIAGNOSTIC IMPRESSION AND PLAN: 1. Patient admitted to the hospital with encephalitis , VZV and HSV PCR negative acyclovir to be discontinued 2. Patient with COVID-19 infection for which the patient has been treated with Lovenox, dexamethasone, zinc, to finish therapy with dexamethasone and zinc and close out patient follow up
[2020-03-29 10:54] LABS: VDRL, Qualitative CSF Nonreactive (Nonreactive)
== END 2020-03-28 16:20 | disposition home or self-care (01) | DRG 871 ==
LOC: EC 17:33 → 3SCARD 20:00 → 2SICU 21:51 → 6NMEDSUR 03-27 11:02
PROVIDERS: ADMIT Internal Medicine; ATTEND Internal Medicine
PROC: 009U3ZX Drainage of Spinal Canal, Percutaneous Approach, Diagnostic (ICD-10-PCS; principal; 2020-03-25)
DX: A41.89 Other specified sepsis (principal); E11.10 Type 2 diabetes mellitus with ketoacidosis without coma; G92 Toxic encephalopathy; U07.1 COVID-19; J12.89 Other viral pneumonia; N17.0 Acute kidney failure with tubular necrosis; G04.90 Encephalitis and encephalomyelitis, unspecified; E87.0 Hyperosmolality and hypernatremia; E87.1 Hypo-osmolality and hyponatremia; E78.5 Hyperlipidemia, unspecified; E83.39 Other disorders of phosphorus metabolism; E86.0 Dehydration; E86.1 Hypovolemia; M19.90 Unspecified osteoarthritis, unspecified site; I10 Essential (primary) hypertension; E87.6 Hypokalemia; F10.10 Alcohol abuse, uncomplicated; R31.9 Hematuria, unspecified; R65.20 Severe sepsis without septic shock; Z78.1 Physical restraint status; Z79.899 Other long term (current) drug therapy; Z79.82 Long term (current) use of aspirin; Z79.52 Long term (current) use of systemic steroids; Z79.4 Long term (current) use of insulin; Z85.828 Personal history of other malignant neoplasm of skin; Z91.030 Bee allergy status; Z98.890 Other specified postprocedural states; Z80.9 Family history of malignant neoplasm, unspecified
CPT/HCPCS: 36415; 36600; 70450; 70553; 71045; 71046; 76770; 80048; 80051; 80053; 80202; 80320; 81001; 82009; 82140; 82565; 82570; 82607; 82747; 82805; 82945; 82947; 83520; 83605; 83615; 83735; 83930; 83935; 84100; 84132; 84145; 84156; 84157; 84300; 84311; 84439; 84443; 84481; 84484; 84520; 84540; 85025; 85027; 85379; 85384; 85610; 85730; 86140; 86592; 86780; 87040; 87070; 87086; 87205; 87252; 87390; 87449; 87496; 87498; 87529; 87635; 87798; 87801; 89050; 93005; 95816; 96365; 96366; 96367; 96368; 96375; 96376; 99291

== ENCOUNTER 2020-04-06 19:26 | Inpatient (IN) | payer MEDICAID ==
--- NOTE | 2020-04-06 19:47 | ED ---
General Adult HPI - General Chief complaint: Altered Mental Status Stated complaint: DKA Time Seen by Provider: 04/06/20 19:32 Source: patient, EMS, old records reviewed Mode of arrival: EMS Limitations: altered mental status - History of Present Illness Initial comments: Patient was transferred to our ED by ambulance from the [facility] ED. Per [facility] ED physician, the patient presented to their ED today for evaluation of altered mental status per his . Per ED physician, the patient was recently admitted here (03/22 - 03/28) at [facility] for altered mental status, and he was found to have metabolic acidosis at that time. Per ED physician, the patient's reported to him that the patient's altered mental status had improved when he was discharged from the hospital, but his symptoms returned a few days later. Per ED physician, the patient's noncontrast head CT and CTA head/neck were both negative today (reports were sent with the patient and reviewed myself). Per ED physician, the patient is not a TPA candidate given the timing of his symptoms. Per ED physician, the patient's blood work today revealed hyperglycemia and metabolic acidosis, so the patient was started on an insulin drip for treatment of DKA. History from the patient is limited secondary to altered mental status, but patient denies having any pain or symptoms at this time. Patient's Covid study was negative. Patient's labs and imaging reports from outside hospital ED were all reviewed myself. ED physician's note from outside hospital ED was reviewed myself as well. - Related Data Home Medications Medication Instructions Recorded Confirmed Aspirin EC [Ecotrin Low Dose] 81 mg PO DAILY 08/05/15 04/06/20 Atorvastatin [Lipitor] 10 mg PO HS 08/05/15 04/06/20 metFORMIN HCL 1,000 mg PO BID 08/05/15 04/06/20 Dapagliflozin Propanediol [Farxiga] 10 mg PO DAILY 03/22/20 04/06/20 Ertugliflozin Pidolate [Steglatro] 15 mg PO DAILY 03/22/20 04/06/20 Azithromycin [Zithromax] 500 mg PO DAILY 04/06/20 04/06/20 Promethazine/Dextromethorphan 5 ml PO Q4H PRN 04/06/20 04/06/20 [Promethazine-Dm 6.25-15 mg/5Ml] Previous Rx's Medication Instructions Recorded Cholecalciferol [Vitamin D3 (25 2,000 unit PO DAILY #28 tablet 03/28/20 Mcg = 1000 Iu)] Zinc Sulfate 220 mg PO DAILY #14 capsule 03/28/20 Allergies Allergy/AdvReac Type Severity Reaction Status Date / Time venom-honey bee Allergy Unknown HIVE, Verified 04/06/20 19:46 [bee venom (honey bee)] REDNESS Review of Systems ROS Statement: Those systems with pertinent positive or pertinent negative responses have been documented in the HPI. ROS Other: All systems not noted in ROS Statement are negative. 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 History of Any Multi-Drug Resistant Organisms: None Reported Past Surgical History: No Surgical Hx Reported, Orthopedic Surgery Additional Past Surgical History / Comment(s): COLONOSCOPY, LEFT ROTATOR CUFF DISTAL CLAVICLE EXCISION. LESIONS REMOVED FROM FACE Past Anesthesia/Blood Transfusion Reactions: No Reported Reaction Past Psychological History: No Psychological Hx Reported Smoking Status: Never smoker Past Alcohol Use History: Rare Past Drug Use History: None Reported - Past Family History Father Family Medical History: Cancer General Exam Limitations: altered mental status General appearance: alert Head exam: Present: atraumatic, normocephalic Eye exam: Present: normal appearance, PERRL, EOMI ENT exam: Present: mucous membranes dry Neck exam: Present: other (No nuchal rigidity or meningeal signs are present on examination; trachea is in midline). Absent: tenderness, meningismus Respiratory exam: Present: normal lung sounds bilaterally. Absent: respiratory distress, wheezes, rales, rhonchi, stridor Cardiovascular Exam: Present: normal rhythm, tachycardia, normal heart sounds, other (Normal radial pulses bilaterally) GI/Abdominal exam: Present: soft. Absent: distended, tenderness, guarding Extremities exam: Absent: tenderness, pedal edema, calf tenderness Neurological exam: Present: alert, CN II-XII intact, other (Dysarthric speech; patient is oriented to person and place, but not to time). Absent: motor sensory deficit Skin exam: Present: warm, dry, intact, normal color Course Vital Signs 04/06/20 19:40 Temperature 98.3 F Pulse Rate 114 H Respiratory 18 Rate Blood Pressure 123/90 O2 Sat by Pulse 99 Oximetry - Reevaluation(s) Reevaluation #1: 04/06/20 22:18 Case, H&P, test results and ED/prehospital management were discussed with Dr. Chambers who is currently in the ED. He accepts hospital ICU admission. He has no further recommendations at this time. 04/06/20 22:57 Case, H&P and test results and ED/prehospital management were discussed with Dr. Oakes. He agrees to see the patient in consultation. He does not feel that the patient needs to be put on a bicarb IV drip. He has no further recommendations at this time. 04/06/20 22:59 Patient remains alert and breathing comfortably. EKG Findings - EKG Comments: EKG Findings:: EKG is limited secondary to motion, sinus tachycardia, ventricular rate of 119 bpm, no ectopy, normal KS and QRS intervals, normal QT interval, normal axis, nonspecific T-wave abnormality Medical Decision Making - Medical Decision Making I suspect that the patient's altered mentation is likely secondary to diabetic ketoacidosis/metabolic acidosis. Patient is hyperglycemic, has an elevated anion gap, is acidotic and is serum acetone positive. Patient was started on an insulin IV drip. Patient has been given IV fluids. Patient is afebrile and without nuchal rigidity or meningeal signs. Dr. Chambers has accepted hospital ICU admission. Dr. Oakes (ice delivery driver) has been consulted. - Lab Data Result diagrams: 04/06/20 20:23 04/06/20 20:23 Lab Results 04/06/20 04/06/20 04/06/20 Range/Units 20:20 20:21 20:23 WBC 16.1 H (3.8-10.6) k/uL RBC 5.30 (4.30-5.90) m/uL Hgb 15.7 (13.0-17.5) gm/dL Hct 50.3 (39.0-53.0) % MCV 94.9 D (80.0-100.0) fL MCH 29.6 (25.0-35.0) pg MCHC 31.2 (31.0-37.0) g/dL RDW 14.0 (11.5-15.5) % Plt Count 359 (150-450) k/uL MPV 8.5 Neutrophils % 82 % Lymphocytes % 11 % Monocytes % 5 % Eosinophils % 1 % Basophils % 1 % Neutrophils # 13.2 H (1.3-7.7) k/uL Lymphocytes # 1.7 (1.0-4.8) k/uL Monocytes # 0.7 (0-1.0) k/uL Eosinophils # 0.1 (0-0.7) k/uL Basophils # 0.1 (0-0.2) k/uL Hypochromasia Slight PT (9.0-12.0) sec INR (<1.2) APTT (22.0-30.0) sec VBG pH (7.31-7.41) VBG pCO2 (37-51) mmHg VBG HCO3 (24-28) mmol/L Sodium (137-145) mmol/L Potassium (3.5-5.1) mmol/L Chloride (98-107) mmol/L Carbon Dioxide (22-30) mmol/L Anion Gap mmol/L BUN (9-20) mg/dL Creatinine (0.66-1.25) mg/dL Est GFR (CKD-EPI)AfAm (>60 ml/min/1.73 sqM) Est GFR (CKD-EPI)NonAf (>60 ml/min/1.73 sqM) Glucose (74-99) mg/dL POC Glucose (mg/dL) 255 H (75-99) mg/dL POC Glu Defect Cutter ID [facility] Plasma Lactic Acid Gabo (0.7-2.0) mmol/L Calcium (8.4-10.2) mg/dL Total Bilirubin (0.2-1.3) mg/dL AST (17-59) U/L ALT (4-49) U/L Alkaline Phosphatase (38-126) U/L Ammonia (<30) umol/L Troponin I <0.012 (0.000-0.034) ng/mL Total Protein (6.3-8.2) g/dL Albumin (3.5-5.0) g/dL Serum Alcohol mg/dL Acetone, Qual (Negative) 04/06/20 04/06/20 04/06/20 Range/Units 20:23 20:23 20:23 WBC (3.8-10.6) k/uL RBC (4.30-5.90) m/uL Hgb (13.0-17.5) gm/dL Hct (39.0-53.0) % MCV (80.0-100.0) fL MCH (25.0-35.0) pg MCHC (31.0-37.0) g/dL RDW (11.5-15.5) % Plt Count (150-450) k/uL MPV Neutrophils % % Lymphocytes % % Monocytes % % Eosinophils % % Basophils % % Neutrophils # (1.3-7.7) k/uL Lymphocytes # (1.0-4.8) k/uL Monocytes # (0-1.0) k/uL Eosinophils # (0-0.7) k/uL Basophils # (0-0.2) k/uL Hypochromasia PT 11.1 (9.0-12.0) sec INR 1.1 (<1.2) APTT 19.2 L (22.0-30.0) sec VBG pH (7.31-7.41) VBG pCO2 (37-51) mmHg VBG HCO3 (24-28) mmol/L Sodium 152 H (137-145) mmol/L Potassium 5.1 (3.5-5.1) mmol/L Chloride 122 H (98-107) mmol/L Carbon Dioxide 7 L* (22-30) mmol/L Anion Gap 23 mmol/L BUN 55 H (9-20) mg/dL Creatinine 2.12 H (0.66-1.25) mg/dL Est GFR (CKD-EPI)AfAm 38 (>60 ml/min/1.73 sqM) Est GFR (CKD-EPI)NonAf 33 (>60 ml/min/1.73 sqM) Glucose 302 H (74-99) mg/dL POC Glucose (mg/dL) (75-99) mg/dL POC Glu Defect Cutter ID Plasma Lactic Acid Gabo 1.6 (0.7-2.0) mmol/L Calcium 10.0 (8.4-10.2) mg/dL Total Bilirubin 0.5 (0.2-1.3) mg/dL AST 13 L (17-59) U/L ALT 10 (4-49) U/L Alkaline Phosphatase 124 (38-126) U/L Ammonia <9 (<30) umol/L Troponin I (0.000-0.034) ng/mL Total Protein 6.6 (6.3-8.2) g/dL Albumin 3.3 L (3.5-5.0) g/dL Serum Alcohol <10 mg/dL Acetone, Qual Positive (Negative) 04/06/20 Range/Units 20:23 WBC (3.8-10.6) k/uL RBC (4.30-5.90) m/uL Hgb (13.0-17.5) gm/dL Hct (39.0-53.0) % MCV (80.0-100.0) fL MCH (25.0-35.0) pg MCHC (31.0-37.0) g/dL RDW (11.5-15.5) % Plt Count (150-450) k/uL MPV Neutrophils % % Lymphocytes % % Monocytes % % Eosinophils % % Basophils % % Neutrophils # (1.3-7.7) k/uL Lymphocytes # (1.0-4.8) k/uL Monocytes # (0-1.0) k/uL Eosinophils # (0-0.7) k/uL Basophils # (0-0.2) k/uL Hypochromasia PT (9.0-12.0) sec INR (<1.2) APTT (22.0-30.0) sec VBG pH 7.16 L* (7.31-7.41) VBG pCO2 25 L (37-51) mmHg VBG HCO3 9 L* (24-28) mmol/L Sodium (137-145) mmol/L Potassium (3.5-5.1) mmol/L Chloride (98-107) mmol/L Carbon Dioxide (22-30) mmol/L Anion Gap mmol/L BUN (9-20) mg/dL Creatinine (0.66-1.25) mg/dL Est GFR (CKD-EPI)AfAm (>60 ml/min/1.73 sqM) Est GFR (CKD-EPI)NonAf (>60 ml/min/1.73 sqM) Glucose (74-99) mg/dL POC Glucose (mg/dL) (75-99) mg/dL POC Glu Defect Cutter ID Plasma Lactic Acid Gabo (0.7-2.0) mmol/L Calcium (8.4-10.2) mg/dL Total Bilirubin (0.2-1.3) mg/dL AST (17-59) U/L ALT (4-49) U/L Alkaline Phosphatase (38-126) U/L Ammonia (<30) umol/L Troponin I (0.000-0.034) ng/mL Total Protein (6.3-8.2) g/dL Albumin (3.5-5.0) g/dL Serum Alcohol mg/dL Acetone, Qual (Negative) - Radiology Data Radiology results: report reviewed (Chest x-ray: Mild lower lobe pulmonary interstitial pneumonia; there is overall significant improvement in the appearance of the chest compared to recent exam with clearing of the peripheral pulmonary airspace infiltrates) Critical Care Time Critical Care Time: Yes Total Critical Care Time: 60 (DKA) Disposition Clinical Impression: Altered mental status, DKA (diabetic ketoacidoses), Renal insufficiency, Hypernatremia, Metabolic acidosis Disposition: ADMITTED IP TO THIS HOSP Condition: Stable Is patient prescribed a controlled substance at d/c from ED?: No Time of Disposition: 22:21
[2020-04-06] MEDS ORDERED: SODIUM CHLORIDE 0.9% 1,000 ML IV ONE (19:52)
[2020-04-06] MEDS ORDERED: LACTATED RINGERS 1,000 ML IV ONE (20:20)
[2020-04-06 20:21] LABS: Glucose,Whole Blood 255 mg/dL (75-99)
--- NOTE | 2020-04-06 20:47 | XR ---
EXAMINATION TYPE: XR chest 1V portable DATE OF EXAM: 04/06/2020 COMPARISON: 03/23/2020 HISTORY: Short of breath TECHNIQUE: FINDINGS: There is increased pulmonary interstitial density in the lower lung oneil. There is no hea rt failure. Heart size is normal. There are chest leads. IMPRESSION: Mild lower lobe pulmonary interstitial pneumonia. There is overall significant improvemen t in the appearance of the chest compared to recent exam with clearing of the peripheral pulmonary ai rspace infiltrates.
[2020-04-06 21:00] LABS: VBG PH 7.16 (7.31-7.41)
[2020-04-06 21:06] LABS: Basophils # (A) 0.1 k/uL (0-0.2); Basophils % (A) 1 %; Eosinophils # (A) 0.1 k/uL (0-0.7); Eosinophils % (A) 1 %; HCT 50.3 % (39.0-53.0); HGB 15.7 gm/dL (13.0-17.5); Hypochromasia Slight; Lymphocytes # (A) 1.7 k/uL (1.0-4.8); Lymphocytes % (A) 11 %; MCH 29.6 pg (25.0-35.0); MCHC 31.2 g/dL (31.0-37.0); Mean Platelet Volume 8.5; Monocytes # (A) 0.7 k/uL (0-1.0); Monocytes % (A) 5 %; Neutrophils # (A) 13.2 k/uL (1.3-7.7); Neutrophils % (A) 82 %; Platelet Count 359 k/uL (150-450); WBC 16.1 k/uL (3.8-10.6)
[2020-04-06 21:07] LABS: ALT 10 U/L (4-49); AST 13 U/L (17-59); African American GFR (CKD) 38 (>60 ml/min/1.73 sqM); Albumin 3.3 g/dL (3.5-5.0); Alcohol <10 mg/dL; Alkaline Phosphatase 124 U/L (38-126); Blood Urea Nitrogen 55 mg/dL (9-20); Chloride 122 mmol/L (98-107); Glucose 302 mg/dL (74-99); Non-African American GFR(CKD) 33 (>60 ml/min/1.73 sqM); Potassium 5.1 mmol/L (3.5-5.1); Sodium 152 mmol/L (137-145); Total Bilirubin 0.5 mg/dL (0.2-1.3); Total Protein 6.6 g/dL (6.3-8.2)
[2020-04-06 21:09] LABS: Lactic Acid, Venous 1.6 mmol/L (0.7-2.0)
[2020-04-06 21:10] LABS: MCV 94.9 fL (80.0-100.0)
[2020-04-06 21:12] LABS: Anion Gap 23 mmol/L
[2020-04-06 21:16] LABS: INR 1.1 (<1.2); Prothrombin Time 11.1 sec (9.0-12.0)
[2020-04-06 21:30] LABS: Carbon Dioxide 7 mmol/L (22-30)
[2020-04-06] MEDS ORDERED: Magnesium Replacement Protocol 1 EACH MISC MISCELLANE PRN (21:44)
[2020-04-06] MEDS ORDERED: INSULIN REGULAR BOLUS (FROM DRIP BAG) IV ONE (21:44)
[2020-04-06] MEDS ORDERED: Potassium Replacement Protocol 1 EACH MISC MISCELLANE PRN (21:44)
[2020-04-06] MEDS ORDERED: SODIUM CHLORIDE 0.9% 1,000 ML IV SCH (21:45)
[2020-04-06 22:00] LABS: Partial Thromboplastin Time 19.2 sec (22.0-30.0)
[2020-04-06] MEDS ORDERED: D5-0.45% NACL WITH KCL 20MEQ/L 1,000 ML IV SCH (22:45)
[2020-04-06] MEDS: INSULIN REGULAR 100 UNIT in SODIUM CHLORIDE 0.9% 100 ML IV SCH (22:50)
[2020-04-06] MEDS: D5-0.45% NACL WITH KCL 20MEQ/L 1,000 ML IV SCH (22:50)
[2020-04-07 00:06] LABS: Appearance,Urine Clear (Clear); Bacteria,Urine Rare /hpf; Bilirubin,Urine Negative (Negative); Blood,Urine Small (Negative); Color,Urine Light Yellow; Glucose,Urine (UA) 4+ (Negative); Hyaline Casts,Urine 6 /lpf (0-2); Leukocyte Esterase,Urine Negative (Negative); Mucus,Urine Rare /hpf; Nitrite,Urine Negative (Negative); PH, Urine 5.5 (5.0-8.0); Protein,Urine 1+ (Negative); RBC,Urine 1 /hpf (0-5); Squamous Epithelial Cell,Urine <1 /hpf (0-4); Urobilinogen,Urine <2.0 mg/dL (<2.0); WBC,Urine 3 /hpf (0-5)
[2020-04-07 00:12] LABS: Specific Gravity,Urine 1.048 (1.001-1.035)
[2020-04-07 00:14] LABS: Amphetamine Screen,Urine Not Detected (NotDetected); Barbiturate Screen,Urine Not Detected (NotDetected); Benzodiazepines Screen,Urine Not Detected (NotDetected); Cocaine Screen,Urine Not Detected (NotDetected); Ketones,Urine 3+ (Negative); Methadone Screen, Urine Not Detected (NotDetected); Opiate Screen,Urine Not Detected (NotDetected); Oxycodone Screen, Urine Not Detected (NotDetected); Phencyclidine Screen,Urine Not Detected (NotDetected); Tricyclic Antidepressant,Urine Not Detected (NotDetected); Urn Cannabinoid Scrn Not Detected (NotDetected)
[2020-04-07 01:03] LABS: Phosphorus 1.3 mg/dL (2.5-4.5)
[2020-04-07] MEDS ORDERED: SODIUM CHLORIDE 0.45% 1,000 ML IV SCH (02:15)
--- NOTE | 2020-04-07 02:24 | P.HPIM ---
History of Present Illness H&P Date: 04/06/20 Patient is a 59-year-old male with a PMH of type II DM, hyperlipidemia, and recent COVID-19 infection who presented to the emergency room with altered mentation. History obtained from the over the phone since the patient is a very poor historian ([phone]). She notes that following his recent discharge from the hospital, the patient had gradual improvement in his overall function including his mental status but then began to deteriorate this past weekend. She notes that his appetite decreased significantly and that he has only been eating a few crackers and drinking 1-2 glasses of water a day. She notes that he has missed a few doses of his medications, continues to take his Farxiga though has stopped his Steglatro. The patient was confused and lethargic during the interview and noted that he does not feel well. He however denied headache, visual disturbances, numbness, tingling, chest pain, shortness of breath, fever, chills, or cough. Noted that he has not been drinking or eating much since he does not feel like it. He underwent an extensive evaluation in the emergency room with EKG showing sinus tachycardia at 119 bpm and chest x-ray showing improvements in his interstitial pneumonia. Laboratory evaluation was remarkable for a sodium of 152, CO2 of 7, BUN 55, creatinine 2.12, glucose 302, anion gap 23, WBC count 16.1, pH 7.16, lactic acid 1.6, troponin less than 0.012, urine toxicology unremarkable, and acetone positive. Review of Systems Pertinent positives and negatives as discussed in HPI, a complete review of systems was performed and all other systems are negative. Past Medical History Past Medical History: Cancer, Diabetes Mellitus, Osteoarthritis (OA) Additional Past Medical History / Comment(s): SKIN CANCER ON FACE, TYPE 2 DIABETES. History of Any Multi-Drug Resistant Organisms: None Reported Past Surgical History: No Surgical Hx Reported, Orthopedic Surgery Additional Past Surgical History / Comment(s): COLONOSCOPY, LEFT ROTATOR CUFF DISTAL CLAVICLE EXCISION. LESIONS REMOVED FROM FACE Past Anesthesia/Blood Transfusion Reactions: No Reported Reaction Past Psychological History: No Psychological Hx Reported Smoking Status: Never smoker Past Alcohol Use History: Rare Past Drug Use History: None Reported - Past Family History Father Family Medical History: Cancer Medications and Allergies Home Medications Medication Instructions Recorded Confirmed Type Aspirin EC [Ecotrin Low Dose] 81 mg PO DAILY 04/22/16 12/23/20 History Atorvastatin [Lipitor] 10 mg PO HS 08/05/15 04/06/20 History metFORMIN HCL 1,000 mg PO BID 08/05/15 04/06/20 History Dapagliflozin Propanediol [Farxiga] 10 mg PO DAILY 03/22/20 04/06/20 History Ertugliflozin Pidolate [Steglatro] 15 mg PO DAILY 03/22/20 04/06/20 History Cholecalciferol [Vitamin D3 (25 2,000 unit PO DAILY #28 tablet 03/28/20 04/06/20 Rx Mcg = 1000 Iu)] Zinc Sulfate 220 mg PO DAILY #14 capsule 03/28/20 04/06/20 Rx Azithromycin [Zithromax] 500 mg PO DAILY 04/06/20 04/06/20 History Promethazine/Dextromethorphan 5 ml PO Q4H PRN 04/06/20 04/06/20 History [Promethazine-Dm 6.25-15 mg/5Ml] Allergies Allergy/AdvReac Type Severity Reaction Status Date / Time venom-honey bee Allergy Unknown HIVE, Verified 04/06/20 19:46 [bee venom (honey bee)] REDNESS Physical Exam Vitals: Vital Signs Temp Pulse Resp BP Pulse Ox 04/06/20 19:40 98.3 F 114 H 18 123/90 99 Intake and Output 04/06/20 04/06/20 04/07/20 14:59 22:59 06:59 Other: Weight 68.039 kg General: non toxic, no distress, appears at stated age, normal weight Derm: no unusual rashes/lesions no unusual ecchymoses, warm, dry Head: atraumatic, normocephalic, symmetric Eyes: EOMI, no lid lag, anicteric sclera, pupils equal round reactive to light ENT: Nose and ears atraumatic, no thrush, no pharyngeal erythema Neck: No thyromegaly, no cervical lymphadenopathy, trachea midline, supple Mouth: no lip lesion, mucus membranes very dry Cardiovascular: S1S2 reg, tachycardic, no murmur, positive posterior tibial pulse bilateral, no edema, capillary refill less than 2 seconds Lungs: CTA bilateral, no rhonchi, no rales , no accessory muscle use Abdominal: soft, nontender to palpation, no guarding, no appreciable organomegaly, normal bowel sounds Ext: no gross muscle atrophy, muscle strength 3+ out of 5 in all 4 extremities grossly, no contractures, Neuro: CN II-XI grossly intact, light touch intact all 4 extremities, finger to nose within normal limits, no nuchal rigidity noted, Kernig's and Brudzinski's negative Psych: Lethargic, oriented to person and place, not oriented to time Results CBC & Chem 7: 04/06/20 20:04/07/20 00:33 Labs: Abnormal Lab Results - Last 24 Hours (Table) 04/06/20 04/06/20 04/06/20 Range/Units 20:20 20: 20: WBC 16.1 H (3.8-10.6) k/uL Neutrophils # 13.2 H (1.3-7.7) k/uL APTT 19.2 L (22.0-30.0) sec VBG pH (7.31-7.41) VBG pCO2 (37-51) mmHg VBG HCO3 (24-28) mmol/L Sodium (137-145) mmol/L Chloride (98-107) mmol/L Carbon Dioxide (22-30) mmol/L BUN (9-20) mg/dL Creatinine (0.66-1.25) mg/dL Glucose (74-99) mg/dL POC Glucose (mg/dL) 255 H (75-99) mg/dL AST (17-59) U/L Albumin (3.5-5.0) g/dL 04/06/20 04/06/20 Range/Units 20:23 20:23 WBC (3.8-10.6) k/uL Neutrophils # (1.3-7.7) k/uL APTT (22.0-30.0) sec VBG pH 7.16 L* (7.31-7.41) VBG pCO2 25 L (37-51) mmHg VBG HCO3 9 L* (24-28) mmol/L Sodium 152 H (137-145) mmol/L Chloride 122 H (98-107) mmol/L Carbon Dioxide 7 L* (22-30) mmol/L BUN 55 H (9-20) mg/dL Creatinine 2.12 H (0.66-1.25) mg/dL Glucose 302 H (74-99) mg/dL POC Glucose (mg/dL) (75-99) mg/dL AST 13 L (17-59) U/L Albumin 3.3 L (3.5-5.0) g/dL Assessment and Plan Plan: DKA in setting of type II DM with SGLT-2 inhibitor use -Insulin infusion -IV fluids -Monitor electrolytes closely -Blood glucose monitoring -Admitted to medical ICU -Check A1c -SGLT 2 inhibitors discontinued due to suspected recurrent euglycemic DKA in setting of dehydration -Consider starting patient on a basal insulin upon discharge Altered mental status, likely metabolic encephalopathy -Likely secondary to DKA with severe dehydration -Neurochecks -Continue with above management -Animation Director consult ATIF on CKD; hypernatremia -Likely due to poor oral intake -Continue with hypotonic IV fluids -Urine osomolality and lytes pending Severe metabolic acidosis -Likely secondary to DKA, continue with above management Leukocytosis -No signs of active infection at this time -Likely secondary to acute stressor with dehydration -Monitor CBC DVT prophylaxis -Heparin subq The patient is admitted with an anticipated greater than 2 midnight stay for evaluation of DKA CODE STATUS: Full Code Discussed with: Patient Anticipated discharge date: 3-[address]: Home A total of 40 minutes was spent on the care of this complex patient more than 50% of the time was spent in counseling and care coordination.
[2020-04-07 05:39] LABS: Basophils # (A) 0.1 k/uL (0-0.2); Basophils % (A) 1 %; Eosinophils # (A) 0.1 k/uL (0-0.7); Eosinophils % (A) 1 %; HCT 44.3 % (39.0-53.0); HGB 14.2 gm/dL (13.0-17.5); Lymphocytes # (A) 1.9 k/uL (1.0-4.8); Lymphocytes % (A) 13 %; MCH 29.6 pg (25.0-35.0); MCV 92.4 fL (80.0-100.0); Mean Platelet Volume 7.7; Monocytes # (A) 0.6 k/uL (0-1.0); Monocytes % (A) 4 %; Neutrophils # (A) 11.4 k/uL (1.3-7.7); Neutrophils % (A) 79 %; Platelet Count 292 k/uL (150-450); WBC 14.4 k/uL (3.8-10.6)
[2020-04-07] MEDS: D5-0.45% NACL WITH KCL 20MEQ/L 1,000 ML IV SCH (06:00)
[2020-04-07 06:12] LABS: Albumin 2.9 g/dL (3.5-5.0); Calcium 9.4 mg/dL (8.4-10.2); Phosphorus 1.4 mg/dL (2.5-4.5); Potassium 4.3 mmol/L (3.5-5.1); Total Bilirubin 0.5 mg/dL (0.2-1.3); Total Protein 5.8 g/dL (6.3-8.2)
[2020-04-07] MEDS: DEXTROSE 5% IN WATER 1,000 ML IV SCH ×3 (08:48→21:29)
[2020-04-07] MEDS: HEPARIN SODIUM,PORCINE 5,000 UNIT/ML 1 ML VIAL SQ SCH ×3 (08:48→23:41)
[2020-04-07] MEDS: ASPIRIN 81 MG PO SCH (08:48)
[2020-04-07] MEDS: INSULIN REGULAR 100 UNIT in SODIUM CHLORIDE 0.9% 100 ML IV SCH ×2 (08:59→23:26)
[2020-04-07 10:56] VITALS: BMI 24.9
--- NOTE | 2020-04-07 11:06 | CONS ---
CONSULTATION PULMONARY/CRITICAL CARE CONSULTATION: DATE OF CONSULTATION: April 07, 2020 This is a 59-year-old gentleman who was recently in the hospital here between March 22 and March 28. He came in with mental status changes. He was discharged on the . At that time, the patient had a head CT and an MRI of the brain. Both apparently were negative. He also had a lumbar puncture, which was negative. He was treated with vancomycin and Rocephin for possible bacterial meningitis and also acyclovir for possible herpes encephalitis. Unfortunately, everything came back negative and the patient slowly improved with hydration and he was discharged home. His , Sara, who is a nurse here, brought him back into the hospital yesterday. He went into [facility] and then he was transferred to our emergency department. The patient again came in with severe mental status changes, confusion, disorientation, garbled speech. He was found to have metabolic acidosis. He was hypernatremic. He was dehydrated and again, a CT of the head noncontrast was done and both were apparently negative over at [facility]. They thought maybe he was having a stroke and that is why they sent him here for possible tPA. Anyway, he was COVID positive on his last admission. More recently, his COVID study was negative. I did speak to his Sara about transfer to a definitive facility such as [facility]. I think that is a smart thing to do given the fact that the patient is right back where he started from back on March 22. Currently, he is not receiving any supplemental oxygen. We have asked the nurse to place an IV with dextrose at 150 mL an hour. We will see if we cannot get him transferred to [facility]. HOME MEDICATIONS: His home medications apparently included low-dose aspirin, Lipitor, metformin, Farxiga, Steglatro, Zithromax, promethazine with dextromethorphan, vitamin D3, and zinc. ALLERGIES: Allergies include HONEY BEE VENOM. MEDICAL HISTORY: Medical history includes skin cancer, type 2 diabetes, DJD, as well as a most recent admission for mental status changes, confusion, and garbled speech. SURGICAL HISTORY: Surgical history includes a colonoscopy, left rotator cuff repair with excision of distal clavicle, and skin cancers removed from his face. SOCIAL HISTORY: Negative for tobacco use. Denies any illicit drug use and rare alcohol use. FAMILY HISTORY: Positive for father with cancer. REVIEW OF SYSTEMS: Really cannot be obtained from the patient. He is very confused and disoriented. He is not sure where he is at, does not know the name of the president and not really aware of what year it is. PHYSICAL EXAMINATION: VITAL SIGNS: Current vital signs are reviewed. His temperature is 98.2. T-max 98.3. Heart rate is 110, respiratory rate 14, blood pressure 144/87, mean 106, saturations on room air between 96% and 97%. GENERAL: Appears very confused and disoriented. Does verbalize but really does not make any intelligible conversation. HEENT: Examination is grossly unremarkable. NECK: Supple. Full range of motion. No adenopathy. Neck veins are flat. CARDIOVASCULAR: Examination reveals tachycardia. Heart rate 110. It is regular. S1, S2 normal. Heart sounds distant. LUNGS: Are relatively clear. A few scattered rhonchi. ABDOMEN: Soft. EXTREMITIES: Are intact. No edema. SKIN: Without rash. NEUROLOGIC: Examination is difficult to assess. He does move all 4 extremities. The patient is very confused and disoriented. LAB DATA: Lab data is reviewed. White count 14.4, hemoglobin 14.2, hematocrit 44.3, platelet count 292,000. PT, INR is unremarkable. PTT is 19.2. Venous pH was 7.16. Sodium 154, potassium 4.3, chloride 129, CO2 of 15. Anion gap is 10. BUN and creatinine were 47 and 1.42. On admission, his BUN and creatinine were 55 and 2.12. His osmolarity was elevated to 371. Calcium 9.4, phosphorus 1.5. Troponins were less than 0.012. Albumin 2.9. Urine is light yellow in color, clear with a specific gravity 1.048. There is 4+ glucose, 1+ protein, 3+ ketones, rare bacteria. Drug screen was negative. Acetone was positive. Thus far microbiology is negative. CT scan at [facility] was normal. Chest x-ray shows some bibasilar airspace disease, but it is certainly improved compared to an x-ray done on March 23 the 2nd day of his last admission. MEDICATIONS: Current medications are reviewed. He is on aspirin, Lipitor, dextrose at 150 mL an hour, subcu heparin, insulin drip as needed, magnesium replacement, potassium replacement, and p.r.n. medications. ASSESSMENT: 1. Recurrent severe mental status changes, of unclear etiology. 2. Recent admission between March 22 and March 28 for COVID-19 pneumonia as well as mental status changes, which eventually resolved. 3. Mild diabetic ketoacidosis. 4. Anion gap metabolic acidosis secondary to diabetes. 5. Recent episode of COVID-19 pneumonitis. 6. Skin cancer. 7. Degenerative joint disease. 8. History of hyperlipidemia. PLAN: I spoke to the , Sara, who is a nurse here, she agreed that the patient should be transferred to a facility where they might be able to determine why this patient is having recurrent mental status changes that are so severe. Anyway, we will attempt to get him transferred to [facility]. No additional recommendations are made. I did recommend dextrose at 150 an hour to help correct the hypernatremia and the prerenal azotemia. The patient may need IV insulin. Additional recommendations and suggestions are forthcoming. Prognosis is guarded. The patient's CT scan at [facility] without contrast was apparently reported as negative and his COVID testing recently was negative as well. MMODL / IJN: [id number] /
--- NOTE | 2020-04-07 12:37 | P.PN ---
Subjective Progress Note Date: 04/07/20 Principal diagnosis: CC: Altered mental status Patient this morning is in soft restraints. He is requesting further restraints to be removed. He is however still delirious. Objective - Vital Signs Vital signs: Vital Signs Temp 98.2 F 04/07/20 04:00 Pulse 94 04/07/20 12:00 Resp 15 04/07/20 12:00 BP 126/69 04/07/20 12:00 Pulse Ox 97 04/07/20 12:00 Intake & Output 04/06/20 04/07/20 04/07/20 18:59 06:59 18:59 Intake Total 1201.000 900 Output Total 200 150 Balance 1001.000 750 Weight 70 kg 70 kg Intake: IV 1050 900 D5-0.45% NaCl with KCl 1050 150 20Meq/l 1,000 ml @ 150 mls/hr IV .[id number] ANABELLA Rx# :[id number] Dextrose 5% in Water 1, 750 000 ml @ 150 mls/hr IV . Q6H40M ANABELLA Rx#:[id number] Intake, IV Titration 101.000 Amount Insulin Regular 100 unit 101.000 In Sodium Chloride 0.9% 100 ml @ 0.1 UNITS/KG/HR 6.872 mls/hr IV .[id number] ANABELLA Rx#:[id number] Oral 50 Output: Urine 200 150 Other: Voiding Method Bedside Commode Bedside Commode Urinal Urinal # Voids 0 0 - Exam General examination - Alert and Oriented 1 Heart - + S1S2 no murmurs Lungs - Clear to auscultation Abdomen soft NT ND +ve BS Extremities - No edema, patient in soft restraints OFFICE MANAGER - Moving all 4 extremities spontaneously Psych - moderately confused - Labs CBC & Chem 7: 04/07/20 05:09 04/07/20 05:09 Labs: Abnormal Lab Results - Last 24 Hours (Table) 04/06/20 04/06/20 04/06/20 Range/Units 20:20 20:21 20:23 WBC 16.1 H (3.8-10.6) k/uL Neutrophils # 13.2 H (1.3-7.7) k/uL APTT (22.0-30.0) sec VBG pH (7.31-7.41) VBG pCO2 (37-51) mmHg VBG HCO3 (24-28) mmol/L Sodium (137-145) mmol/L Chloride (98-107) mmol/L Carbon Dioxide (22-30) mmol/L BUN (9-20) mg/dL Creatinine (0.66-1.25) mg/dL Glucose (74-99) mg/dL POC Glucose (mg/dL) 255 H (75-99) mg/dL Osmolality 371 H* (280-301) mosm/kg Phosphorus (2.5-4.5) mg/dL AST (17-59) U/L Total Protein (6.3-8.2) g/dL Albumin (3.5-5.0) g/dL Ur Specific [place] (1.001-1.035) Urine Protein (Negative) Urine Glucose (UA) (Negative) Urine Ketones (Negative) Urine Blood (Negative) Urine Bacteria (None) /hpf Hyaline Casts (0-2) /lpf Urine Mucus (None) /hpf 04/06/20 04/06/20 04/06/20 Range/Units 20:23 20:23 20:23 WBC (3.8-10.6) k/uL Neutrophils # (1.3-7.7) k/uL APTT 19.2 L (22.0-30.0) sec VBG pH 7.16 L* (7.31-7.41) VBG pCO2 25 L (37-51) mmHg VBG HCO3 9 L* (24-28) mmol/L Sodium 152 H (137-145) mmol/L Chloride 122 H (98-107) mmol/L Carbon Dioxide 7 L* (22-30) mmol/L BUN 55 H (9-20) mg/dL Creatinine 2.12 H (0.66-1.25) mg/dL Glucose 302 H (74-99) mg/dL POC Glucose (mg/dL) (75-99) mg/dL Osmolality (280-301) mosm/kg Phosphorus (2.5-4.5) mg/dL AST 13 L (17-59) U/L Total Protein (6.3-8.2) g/dL Albumin 3.3 L (3.5-5.0) g/dL Ur Specific [place] (1.001-1.035) Urine Protein (Negative) Urine Glucose (UA) (Negative) Urine Ketones (Negative) Urine Blood (Negative) Urine Bacteria (None) /hpf Hyaline Casts (0-2) /lpf Urine Mucus (None) /hpf 04/06/20 04/07/20 04/07/20 Range/Units 23:07 00:33 05:09 WBC (3.8-10.6) k/uL Neutrophils # (1.3-7.7) k/uL APTT (22.0-30.0) sec VBG pH (7.31-7.41) VBG pCO2 (37-51) mmHg VBG HCO3 (24-28) mmol/L Sodium 156 H 154 H (137-145) mmol/L Chloride 130 H 129 H (98-107) mmol/L Carbon Dioxide 11 L 15 L (22-30) mmol/L BUN 50 H 47 H (9-20) mg/dL Creatinine 1.72 H 1.42 H (0.66-1.25) mg/dL Glucose 108 H 132 H (74-99) mg/dL POC Glucose (mg/dL) (75-99) mg/dL Osmolality (280-301) mosm/kg Phosphorus 1.3 L 1.4 L (2.5-4.5) mg/dL AST 13 L (17-59) U/L Total Protein 5.8 L (6.3-8.2) g/dL Albumin 2.9 L (3.5-5.0) g/dL Ur Specific [place] 1.048 H (1.001-1.035) Urine Protein 1+ H (Negative) Urine Glucose (UA) 4+ H (Negative) Urine Ketones 3+ H (Negative) Urine Blood Small H (Negative) Urine Bacteria Rare H (None) /hpf Hyaline Casts 6 H (0-2) /lpf Urine Mucus Rare H (None) /hpf 04/07/20 Range/Units 05:09 WBC 14.4 H (3.8-10.6) k/uL Neutrophils # 11.4 H (1.3-7.7) k/uL APTT (22.0-30.0) sec VBG pH (7.31-7.41) VBG pCO2 (37-51) mmHg VBG HCO3 (24-28) mmol/L Sodium (137-145) mmol/L Chloride (98-107) mmol/L Carbon Dioxide (22-30) mmol/L BUN (9-20) mg/dL Creatinine (0.66-1.25) mg/dL Glucose (74-99) mg/dL POC Glucose (mg/dL) (75-99) mg/dL Osmolality (280-301) mosm/kg Phosphorus (2.5-4.5) mg/dL AST (17-59) U/L Total Protein (6.3-8.2) g/dL Albumin (3.5-5.0) g/dL Ur Specific [place] (1.001-1.035) Urine Protein (Negative) Urine Glucose (UA) (Negative) Urine Ketones (Negative) Urine Blood (Negative) Urine Bacteria (None) /hpf Hyaline Casts (0-2) /lpf Urine Mucus (None) /hpf Assessment and Plan Assessment: DKA in setting of type II DM with SGLT-2 inhibitor use -Insulin infusion -IV fluids -Monitor electrolytes closely -Blood glucose monitoring -Admitted to medical ICU -Check A1c -SGLT 2 inhibitors discontinued due to suspected recurrent euglycemic DKA in setting of dehydration -Consider starting patient on a basal insulin upon discharge Altered mental status, likely metabolic encephalopathy -Likely secondary to DKA with severe dehydration -Patient had extensive workup done on previous admission. His LP was negative. His head imaging was also unremarkable. Patient mental status did improve and he was discharged. - requested transfer to [facility]. However I explained to the that his metabolic derangement need to be fixed before we can consider transfer. is amenable to the patient stating here. [facility] did start the transfer process. I spoke to [facility] who said that they had to decline the admission as they do not have any beds available ATIF on CKD; hypernatremia -Likely due to poor oral intake -Continue with hypotonic IV fluids -Urine osomolality and lytes pending -Patient started on D5 half-normal saline Severe metabolic acidosis -Likely secondary to DKA, continue with above management Leukocytosis -No signs of active infection at this time -Likely secondary to acute stressor with dehydration -Monitor CBC -Improving #Recent COVID 19 infection -Stable -Chest x-ray shows improvement in aeration DVT prophylaxis -Heparin subq The patient is admitted with an anticipated greater than 2 midnight stay for evaluation of DKA CODE STATUS: Full Code Discussed with: Patient Anticipated discharge date: 3-[address]: Home A total of 40 minutes was spent on the care of this complex patient more than 50% of the time was spent in counseling and care coordination.
[2020-04-07] MEDS ORDERED: ATORVASTATIN 10 MG TAB PO SCH (21:00)
[2020-04-08 01:12] LABS: ALT 10 U/L (4-49); AST 19 U/L (17-59); African American GFR (CKD) >90 (>60 ml/min/1.73 sqM); Albumin 2.6 g/dL (3.5-5.0); Alkaline Phosphatase 105 U/L (38-126); Anion Gap 3 mmol/L; Blood Urea Nitrogen 31 mg/dL (9-20); Calcium 9.1 mg/dL (8.4-10.2); Carbon Dioxide 21 mmol/L (22-30); Chloride 121 mmol/L (98-107); Glucose 157 mg/dL (74-99); Non-African American GFR(CKD) >90 (>60 ml/min/1.73 sqM); Sodium 145 mmol/L (137-145); Total Bilirubin 0.6 mg/dL (0.2-1.3); Total Protein 5.5 g/dL (6.3-8.2)
[2020-04-08 01:21] LABS: Potassium 3.6 mmol/L (3.5-5.1)
[2020-04-08] MEDS: DEXTROSE 5% IN WATER 1,000 ML IV SCH ×3 (04:07→23:45)
[2020-04-08 04:36] LABS: HCT 42.9 % (39.0-53.0); HGB 13.8 gm/dL (13.0-17.5); MCH 29.6 pg (25.0-35.0); MCHC 32.3 g/dL (31.0-37.0); MCV 91.9 fL (80.0-100.0); Mean Platelet Volume 7.6; Platelet Count 215 k/uL (150-450); RBC 4.67 m/uL (4.30-5.90); RDW 14.2 % (11.5-15.5); WBC 9.8 k/uL (3.8-10.6)
[2020-04-08 05:12] LABS: ALT 11 U/L (4-49); AST 29 U/L (17-59); African American GFR (CKD) >90 (>60 ml/min/1.73 sqM); Albumin 2.6 g/dL (3.5-5.0); Alkaline Phosphatase 105 U/L (38-126); Anion Gap 2 mmol/L; Blood Urea Nitrogen 29 mg/dL (9-20); Calcium 9.2 mg/dL (8.4-10.2); Carbon Dioxide 20 mmol/L (22-30); Chloride 120 mmol/L (98-107); Glucose 193 mg/dL (74-99); Non-African American GFR(CKD) >90 (>60 ml/min/1.73 sqM); Potassium 3.6 mmol/L (3.5-5.1); Sodium 142 mmol/L (137-145); Total Bilirubin 0.7 mg/dL (0.2-1.3); Total Protein 5.5 g/dL (6.3-8.2)
[2020-04-08] MEDS: POTASSIUM CHLORIDE 10 MEQ in WATER FOR INJECTION 1 100ML.BAG IVPB SCH ×2 (05:32→06:42)
[2020-04-08] MEDS: INSULIN ASPART (NovoLOG) 100 UNIT/ML VIAL SQ SCH ×4 (05:55→23:44)
--- NOTE | 2020-04-08 07:34 | XR ---
EXAM: XR Chest, 1 View CLINICAL HISTORY: ITS.REASON XR Reason: pna TECHNIQUE: Frontal view of the chest. COMPARISON: Chest x-ray dated 04/06/20 FINDINGS: Lungs: Persistent left basilar alveolar opacities. Interval improved aeration of aeration on the right. Pleural space: Unremarkable. No pneumothorax. Heart: Unremarkable. No cardiomegaly. Mediastinum: Atherosclerosis of the aorta. Bones/joints: Unremarkable. IMPRESSION: Persistent left basilar alveolar opacities. Interval improved aeration of aeration on the right.
--- NOTE | 2020-04-08 10:02 | PN ---
PROGRESS NOTE PULMONARY/CRITICAL CARE PROGRESS NOTE: DATE OF SERVICE: April 08, 2020 HISTORY OF PRESENT ILLNESS: This is a 59-year-old gentleman who we saw yesterday in consultation. He was in the hospital between March 22 and with an episode of mental status changes, of unclear etiology. At that time, he was evaluated extensively with CT scanning of the brain, MRI scan, and lumbar puncture. Everything turned out negative and his mental status slowly improved. He was readmitted again on April 06 with episode of diabetic ketoacidosis and mental status changes. Currently, he is on room air and D5W at 50 mL an hour. His sodium has returned to normal. His mental status is a bit improved. The etiology of these episodes are not well defined. I did try to get the patient transferred to [facility]. Unfortunately, they did not accept him. PHYSICAL EXAMINATION: VITAL SIGNS: Current vital signs include temperature 97.9, heart rate 97, respiratory rate 14, blood pressure 121/85, mean is 97 and saturations are 99% on room air. Appears in no acute distress. HEENT: Examination is grossly unremarkable. NECK: Supple. Full range of motion. No adenopathy. Neck veins are flat. CARDIOVASCULAR: Examination reveals regular rhythm and rate. Heart rate 97 beats per minute. S1, S2 normal. LUNGS: Reveal mostly clear breath sounds. A few scattered rhonchi. ABDOMEN: Soft. Bowel sounds are heard. EXTREMITIES: Intact. No cyanosis, clubbing, or edema. SKIN: Without rash. NEUROLOGIC: Examination is improved. He is much more alert and awake. Not completely there, but certainly better than he was yesterday. LABS: Reviewed. CBC is completely normal. Sodium down to 142, potassium 3.6, chloride is 120, CO2 20, anion gap is 2. BUN and creatinine were 29 and 0.9. Urine is essentially negative. Drug screen was negative. Microbiology is negative. IMAGING: A chest x-ray today shows persistent left basilar alveolar opacities, probably residual from his recent episode of COVID-19 pneumonia. MEDICATIONS: Current medications reviewed. He is on aspirin, D5W, subcu heparin, insulin, lactated Ringer's, magnesium and potassium replacement. ASSESSMENT: 1. Recurrent significant and severe mental status changes, of unclear etiology. 2. Recent admission between March 22 and , for COVID-19 pneumonia as well as mental status changes, which eventually resolved. 3. Mild diabetic ketoacidosis. 4. Anion gap metabolic acidosis secondary to diabetes. 5. Recent episode of COVID-19 pneumonitis with residual abnormalities on chest x-ray. 6. Skin cancer. 7. Degenerative joint disease. 8. History of hyperlipidemia. PLAN: The patient is doing much better today. His sodium is improved. He is on D5W at 50 mL an hour. His respiratory status is stable. Hemodynamically stable. The patient could be transferred out to the general medical floor. The etiology of this recurrent mental status change issue has not been resolved. The patient will need to seek neurologic care eventually. I will call the today. MMODL / IJN: [id number] /
[2020-04-08] MEDS: ASPIRIN 81 MG PO SCH (11:09)
[2020-04-08] MEDS: HEPARIN SODIUM,PORCINE 5,000 UNIT/ML 1 ML VIAL SQ SCH ×3 (11:17→23:43)
--- NOTE | 2020-04-08 14:17 | P.PN ---
Subjective Progress Note Date: 04/08/20 Principal diagnosis: CC: Altered mental status Patient is seen in the ICU. He is not in any restraints. He is AAO 2 (name and year only). He is still confused. Patient does not know why he is in the hospital. He is following command. Objective - Vital Signs Vital signs: Vital Signs Temp 97.9 F 04/08/20 09:00 Pulse 90 04/08/20 09:00 Resp 14 04/08/20 09:00 BP 115/83 04/08/20 09:00 Pulse Ox 98 04/08/20 09:00 Intake & Output 04/07/20 04/08/20 04/08/20 18:59 06:59 18:59 Intake Total 2050 1454.953 50 Output Total 500 500 Balance 1550 954.953 50 Weight 70 kg 62 kg Intake: IV 1950 1350 50 D5-0.45% NaCl with KCl 150 20Meq/l 1,000 ml @ 150 mls/hr IV .Q6H40M ANABELLA Rx# :[id number] Dextrose 5% in Water 1, 1800 1350 50 000 ml @ 150 mls/hr IV . Q6H40M ANABELLA Rx#:[id number] Intake, IV Titration 104.953 Amount Insulin Regular 100 unit 104.953 In Sodium Chloride 0.9% 100 ml @ 0.1 UNITS/KG/HR 6.872 mls/hr IV .[id number] ANABELLA Rx#:[id number] Oral 100 Output: Urine 500 500 Other: Voiding Method Bedside Commode Urinal Urinal Urinal # Voids 1 1 - Exam General examination - Alert and Oriented 2 Heart - + S1S2 no murmurs Lungs - Clear to auscultation Abdomen soft NT ND +ve BS Extremities - No edema NEEDLE POLISHER - Moving all 4 extremities spontaneously, patient following commands Psych - mildly confused - Labs CBC & Chem 7: 04/08/20 04:23 04/08/20 04:23 Labs: Abnormal Lab Results - Last 24 Hours (Table) 04/07/20 04/08/20 04/08/20 Range/Units 05:09 00:39 04:23 Chloride 121 H 120 H (98-107) mmol/L Carbon Dioxide 21 L 20 L (22-30) mmol/L BUN 31 H 29 H (9-20) mg/dL Glucose 157 H 193 H (74-99) mg/dL Hemoglobin A1c 10.0 H (4.0-6.0) % Total Protein 5.5 L 5.5 L (6.3-8.2) g/dL Albumin 2.6 L 2.6 L (3.5-5.0) g/dL Microbiology - Last 24 Hours (Table) 04/06/20 21:50 Blood Culture - Preliminary Blood No Growth after 24 hours Assessment and Plan Assessment: #DKA in setting of type II DM with SGLT-2 inhibitor use -Anion gap is now closed -Blood glucose monitoring -Admitted to medical ICU -HgbA1c is 10.0. -Patient was on Farxiga that is linked to an increase in DKA risk. We will stop this on discharge and was start patient on long-acting insulin #Altered mental status, likely metabolic encephalopathy -Likely secondary to DKA with severe dehydration -Patient had extensive workup done on previous admission. His LP was negative. His head imaging was also unremarkable. Patient mental status did improve and he was discharged. - requested transfer to [facility]. However I explained to the that his metabolic derangement need to be fixed before we can consider transfer. is amenable to the patient staying here. Manufacturing Assembler did start the transfer process. I spoke to [facility] who said that they had to decline the admission as they do not have any beds available #ATIF on CKD; hypernatremia -Likely due to poor oral intake -Resolved with fluids #Hypovolemic Hypernatremia -Patient on D5 W -Improved #Severe metabolic acidosis -Likely secondary to DKA -Improving #Leukocytosis -No signs of active infection at this time -Likely secondary to acute stressor with dehydration -Resolved #Recent COVID 19 infection -Stable -Chest x-ray shows improvement in aeration DVT prophylaxis -Heparin subq The patient is admitted with an anticipated greater than 2 midnight stay for evaluation of DKA CODE STATUS: Full Code Discussed with: Patient Anticipated discharge date: 2-[address]: Home A total of 40 minutes was spent on the care of this complex patient more than 50% of the time was spent in counseling and care coordination.
[2020-04-08] MEDS: INSULIN DETEMIR (LEVEMIR) 100 UNIT/ML SYR SQ SCH (20:41)
[2020-04-09] MEDS: INSULIN ASPART (NovoLOG) 100 UNIT/ML VIAL SQ SCH ×4 (05:47→21:20)
--- NOTE | 2020-04-09 06:55 | XR ---
EXAM: XR Chest, 1 View CLINICAL HISTORY: ITS.REASON XR Reason: pna TECHNIQUE: Frontal view of the chest. COMPARISON: 04/08/2020 FINDINGS: Lungs: Slightly more prominent left lung base opacity. Pleural space: No acute findings Heart: No cardiomegaly. Bones/joints: No acute findings. IMPRESSION: Slightly more prominent left lung base opacity.
[2020-04-09] MEDS: ASPIRIN 81 MG PO SCH (08:26)
[2020-04-09] MEDS: HEPARIN SODIUM,PORCINE 5,000 UNIT/ML 1 ML VIAL SQ SCH ×3 (08:26→23:43)
[2020-04-09 08:42] LABS: HCT 42.9 % (39.0-53.0); HGB 14.5 gm/dL (13.0-17.5); MCH 30.5 pg (25.0-35.0); MCHC 33.9 g/dL (31.0-37.0); Mean Platelet Volume 7.7; Platelet Count 219 k/uL (150-450); RBC 4.77 m/uL (4.30-5.90); RDW 13.7 % (11.5-15.5); WBC 7.8 k/uL (3.8-10.6)
--- NOTE | 2020-04-09 12:03 | P.PN ---
Subjective Progress Note Date: 04/09/20 Principal diagnosis: CC: Altered mental status Patient does not AAO 3. His mental status has improved significantly since admission. He appears to be close to his baseline. Patient states that he wants to go home. I told patient that we need to monitor his blood sugars for one more day to make sure they're stable on the new regimen. I also discussed with the was amenable to him staying for one more day. states that she is able to give him insulin at home. computer operations manager check for co-pay and patient has a $30 co-pay for Levemir. Objective - Vital Signs Vital signs: Vital Signs Temp 97.5 F L 04/09/20 05:00 Pulse 86 04/09/20 05:00 Resp 18 04/09/20 05:00 BP 105/71 04/09/20 05:00 Pulse Ox 97 04/09/20 05:00 Intake & Output 04/08/20 04/09/20 04/09/20 18:59 06:59 18:59 Intake Total 650 475 Output Total 200 200 Balance 650 275 -200 Intake: IV 50 Dextrose 5% in Water 1, 50 000 ml @ 150 mls/hr IV . Q6H40M ANABELLA Rx#:[id number] Intake, IV Titration 400 400 Amount Dextrose 5% in Water 1, 400 400 000 ml @ 50 mls/hr IV . 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 -Patient was on Farxiga that is linked to an increase in DKA risk. We will stop this on discharge and was start patient on long-acting insulin Levemir 12 units daily at bedtime. Per business case analyst co-pay for gómez is $30 for 25 day supply. #Altered mental status, likely metabolic encephalopathy -Likely secondary to DKA with severe dehydration -Patient had extensive workup done on previous admission. His LP was negative. His head imaging was also unremarkable. Patient mental status did improve and he was discharged. - requested transfer to [facility]. However I explained to the that his metabolic derangement need to be fixed before we can consider transfer. is amenable to the patient staying here. Director Targeted Marketing did start the transfer process. I spoke to [facility] who said that they had to decline the admission as they do not have any beds available -Patient appears to be close to his baseline. #ATIF on CKD; hypernatremia -Likely due to poor oral intake -Resolved with fluids #Hypovolemic Hypernatremia -Discontinue fluids -Improved #Severe metabolic acidosis -Likely secondary to DKA -Resolved #Leukocytosis -No signs of active infection at this time -Likely secondary to acute stressor with dehydration -Resolved #Recent COVID 19 infection -Stable -Chest x-ray shows improvement in aeration DVT prophylaxis -Heparin subq Full Code Anticipated patient be ready for discharge in the next 24 hours.
[2020-04-09 12:06] LABS: African American GFR (CKD) 111.7 (60.0-200.0); Albumin 3.2 g/dL (3.80-4.90); Albumin/Globulin Ratio 1.45 (1.60-3.17); Anion Gap 8.8 mmol/L (4.00-12.00); BUN/Creat Ratio 26.25 Ratio (12.00-20.00); Calcium 8.7 mg/dL (8.7-10.3); Carbon Dioxide 23.2 mmol/L (21.6-31.8); Globulin 2.2 g/dL (1.6-3.3); Non-African American GFR(CKD) 96.4 (60.0-200.0); Potassium 3.5 mmol/L (3.5-5.5); Total Bilirubin 0.8 mg/dL (0.2-1.2); Total Protein 5.4 g/dL (6.2-8.2)
--- NOTE | 2020-04-09 12:25 | P.PN ---
Subjective Progress Note Date: 04/09/20 Principal diagnosis: Altered mental status The patient is seen today 04/09/2020 in follow-up on the regular medical floor. He was admitted again for recurrent altered mental status of unclear etiology. He had been admitted between March 22 and 2019. Over 19 pneumonia as well as altered mental status which eventually resolved. He does have mild diabetic ketoacidosis. Presently he is up ambulating in his room. Awake and alert in no acute distress. Oriented 3. Maintaining O2 saturation in the mid 90s on room air. He is afebrile. Hemodynamically stable. Blood cultures reveal no growth. White count 7.8. Hemoglobin 14.5. Sodium 143. Potassium 3.5. Creatinine 0.8. Objective - Vital Signs Vital signs: Vital Signs Temp 97.5 F L 04/09/20 05:00 Pulse 86 04/09/20 05:00 Resp 18 04/09/20 05:00 BP 105/71 04/09/20 05:00 Pulse Ox 97 04/09/20 05:00 Intake & Output 04/08/20 04/09/20 04/09/20 18:59 06:59 18:59 Intake Total 650 475 Output Total 200 200 Balance 650 275 -200 Intake: IV 50 Dextrose 5% in Water 1, 50 000 ml @ 150 mls/hr IV . Q6H40M ANABELLA Rx#:[id number] Intake, IV Titration 400 400 Amount Dextrose 5% in Water 1, 400 400 000 ml @ 50 mls/hr IV . Q20H ANABELLA Rx#:[id number] Oral 200 75 Output: Urine 200 200 Other: Voiding Method Urinal Urinal # Voids 1 - Exam GENERAL EXAM: Alert, active, pleasant 59-year-old gentleman, on room air, comfortable in no apparent distress. HEAD: Normocephalic. EYES: Normal reaction of pupils, equal size. NOSE: Clear with pink turbinates. THROAT: No erythema or exudates. NECK: No masses, no JVD. CHEST: No chest wall deformity. LUNGS: Equal air entry with no crackles, wheeze, rhonchi or dullness. CVS: S1 and S2 normal with no audible murmur, regular rhythm. ABDOMEN: No hepatosplenomegaly, normal bowel sounds, no guarding or rigidity. SPINE: No scoliosis or deformity SKIN: No rashes CENTRAL NERVOUS SYSTEM: No focal deficits, tone is normal in all 4 extremities. EXTREMITIES: There is no peripheral edema. No clubbing, no cyanosis. Peripheral pulses are intact. - Labs CBC & Chem 7: 04/09/20 08:28 04/09/20 08:28 Labs: Abnormal Lab Results - Last 24 Hours (Table) 04/07/20 04/09/20 Range/Units 05:09 08:28 Chloride 111 H (96-109) mmol/L BUN/Creatinine Ratio 26.25 H (12.00-20.00) Ratio Hemoglobin A1c 10.0 H (4.0-6.0) % Total Protein 5.4 L (6.2-8.2) g/dL Albumin 3.20 L (3.80-4.90) g/dL Albumin/Globulin Ratio 1.45 L (1.60-3.17) g/dL Microbiology - Last 24 Hours (Table) 04/06/20 21:50 Blood Culture - Preliminary Blood No Growth after 48 hours Assessment and Plan Assessment: 1 Diabetic ketoacidosis, improved 2 Altered mental status, suspect metabolic encephalopathy with ongoing dehydration poor oral intake, recovered 3 Diabetes mellitus, type II 4 Acute kidney injury, improving 5 metabolic acidosis, recovered 6 Recent admission for CoVID 19 pneumonitis with altered mental status 7 Degenerative joint disease 8 Hyperlipidemia 9 History of skin cancer Plan: The patient was seen and evaluated by Dr. Oakes He is stable from the pulmonary and critical care standpoint Home once cleared by medicine Outpatient neurology follow-up recommended I, the cosigning physician, performed a history & physical examination of the patient. Lungs sounds are clear. Maintaining good O2 saturations in the 90s on room air. I discussed the assessment and plan of care with my nurse practitioner, Haydee Ling. I attest to the above note as dictated by her.
[2020-04-09] MEDS: metFORMIN 500 MG TAB PO SCH (17:45)
[2020-04-09] MEDS ORDERED: ATORVASTATIN 10 MG TAB PO SCH (21:00)
[2020-04-09] MEDS: INSULIN DETEMIR (LEVEMIR) 100 UNIT/ML SYR SQ SCH (21:20)
[2020-04-10 06:02] LABS: HCT 41.7 % (39.0-53.0); HGB 14.4 gm/dL (13.0-17.5); MCH 30.8 pg (25.0-35.0); MCHC 34.6 g/dL (31.0-37.0); MCV 88.9 fL (80.0-100.0); Mean Platelet Volume 7.2; Platelet Count 194 k/uL (150-450); RBC 4.68 m/uL (4.30-5.90); RDW 13.7 % (11.5-15.5); WBC 8.4 k/uL (3.8-10.6)
[2020-04-10] MEDS: INSULIN ASPART (NovoLOG) 100 UNIT/ML VIAL SQ SCH ×2 (07:59→13:46)
[2020-04-10] MEDS: HEPARIN SODIUM,PORCINE 5,000 UNIT/ML 1 ML VIAL SQ SCH (08:04)
[2020-04-10] MEDS: metFORMIN 500 MG TAB PO SCH ×2 (08:04→08:05)
[2020-04-10] MEDS: ASPIRIN 81 MG PO SCH (08:04)
[2020-04-10 09:30] LABS: Glucose,Whole Blood 229 mg/dL (75-99)
[2020-04-10 09:31] LABS: Glucose,Whole Blood 138 mg/dL (75-99)
[2020-04-10 09:31] LABS: Glucose,Whole Blood 154 mg/dL (75-99)
[2020-04-10 09:31] LABS: Glucose,Whole Blood 164 mg/dL (75-99)
[2020-04-10 09:31] LABS: Glucose,Whole Blood 142 mg/dL (75-99)
[2020-04-10 09:31] LABS: Glucose,Whole Blood 144 mg/dL (75-99)
[2020-04-10 09:32] LABS: Glucose,Whole Blood 170 mg/dL (75-99)
[2020-04-10 09:32] LABS: Glucose,Whole Blood 159 mg/dL (75-99)
[2020-04-10 09:32] LABS: Glucose,Whole Blood 170 mg/dL (75-99)
[2020-04-10 09:32] LABS: Glucose,Whole Blood 212 mg/dL (75-99)
[2020-04-10 09:32] LABS: Glucose,Whole Blood 183 mg/dL (75-99)
[2020-04-10 09:33] LABS: Glucose,Whole Blood 162 mg/dL (75-99)
[2020-04-10 09:33] LABS: Glucose,Whole Blood 164 mg/dL (75-99)
[2020-04-10 09:34] LABS: Glucose,Whole Blood 130 mg/dL (75-99)
[2020-04-10 09:35] LABS: Glucose,Whole Blood 296 mg/dL (75-99)
[2020-04-10 09:36] LABS: Glucose,Whole Blood 77 mg/dL (75-99)
[2020-04-10 09:36] LABS: Glucose,Whole Blood 230 mg/dL (75-99)
[2020-04-10 09:36] LABS: Glucose,Whole Blood 150 mg/dL (75-99)
[2020-04-10 09:36] LABS: Glucose,Whole Blood 139 mg/dL (75-99)
[2020-04-10 09:36] LABS: Glucose,Whole Blood 93 mg/dL (75-99)
[2020-04-10 09:36] LABS: Glucose,Whole Blood 94 mg/dL (75-99)
[2020-04-10 09:36] LABS: Glucose,Whole Blood 97 mg/dL (75-99)
[2020-04-10 09:36] LABS: Glucose,Whole Blood 115 mg/dL (75-99)
[2020-04-10 09:37] LABS: Glucose,Whole Blood 149 mg/dL (75-99)
[2020-04-10 09:37] LABS: Glucose,Whole Blood 80 mg/dL (75-99)
[2020-04-10 09:37] LABS: Glucose,Whole Blood 225 mg/dL (75-99)
[2020-04-10 09:37] LABS: Glucose,Whole Blood 75 mg/dL (75-99)
[2020-04-10 09:37] LABS: Glucose,Whole Blood 129 mg/dL (75-99)
[2020-04-10 09:37] LABS: Glucose,Whole Blood 89 mg/dL (75-99)
[2020-04-10 09:38] LABS: Glucose,Whole Blood 173 mg/dL (75-99)
[2020-04-10 09:40] LABS: Glucose,Whole Blood 153 mg/dL (75-99)
[2020-04-10 09:41] LABS: Glucose,Whole Blood 84 mg/dL (75-99)
[2020-04-10 09:41] LABS: Glucose,Whole Blood 108 mg/dL (75-99)
[2020-04-10 09:43] LABS: Anion Gap 10.4 mmol/L (4.00-12.00); BUN/Creat Ratio 25.71 Ratio (12.00-20.00); Calcium 8.6 mg/dL (8.7-10.3); Carbon Dioxide 24.6 mmol/L (21.6-31.8); Non-African American GFR(CKD) 101.9 (60.0-200.0); Potassium 3.5 mmol/L (3.5-5.5)
[2020-04-10 09:48] LABS: Glucose,Whole Blood 112 mg/dL (75-99)
[2020-04-10 10:33] VITALS: RESP 16
[2020-04-10 10:48] LABS: Glucose,Whole Blood 104 mg/dL (75-99)
[2020-04-10 12:16] VITALS: BP 103/72; PULSE 88; TEMP 97.6
--- NOTE | 2020-04-10 12:27 | P.PN ---
Subjective Progress Note Date: 04/10/20 Principal diagnosis: Altered mental status The patient is seen today 04/09/2020 in follow-up on the regular medical floor. He was admitted again for recurrent altered mental status of unclear etiology. He had been admitted between March 22 and 2019. Over 19 pneumonia as well as altered mental status which eventually resolved. He does have mild diabetic ketoacidosis. Presently he is up ambulating in his room. Awake and alert in no acute distress. Oriented 3. Maintaining O2 saturation in the mid 90s on room air. He is afebrile. Hemodynamically stable. Blood cultures reveal no growth. White count 7.8. Hemoglobin 14.5. Sodium 143. Potassium 3.5. Creatinine 0.8. The patient is seen today 04/10/2020 in follow-up on the regular medical floor. He is alert and oriented 3. He is anxious to go home. He denies any shortness of breath, cough or congestion. No fever, chills or night sweats. Maintaining good O2 saturations in the upper 90s on room air. He is afebrile. Hemodynamically stable. Blood culture reveals no growth. White count 8.4. Hem oglobin 14.4. Sodium 147. Potassium 3.5. Creatinine 0.7. Objective - Vital Signs Vital signs: Vital Signs Temp 97.6 F 04/10/20 11:00 Pulse 88 04/10/20 11:00 Resp 16 04/10/20 11:00 BP 103/72 04/10/20 11:00 Pulse Ox 98 04/10/20 11:00 Intake & Output 04/09/20 04/10/20 04/10/20 18:59 06:59 18:59 Intake Total 1200 Output Total 200 Balance 1000 Intake: Oral 1200 Output: Urine 200 Other: Voiding Method Urinal Urinal Toilet Urinal # Voids 2 2 - Exam GENERAL EXAM: Alert, active, pleasant 59-year-old gentleman, on room air, comfortable in no apparent distress. HEAD: Normocephalic. EYES: Normal reaction of pupils, equal size. NOSE: Clear with pink turbinates. THROAT: No erythema or exudates. NECK: No masses, no JVD. CHEST: No chest wall deformity. LUNGS: Equal air entry with no crackles, wheeze, rhonchi or dullness. CVS: S1 and S2 normal with no audible murmur, regular rhythm. ABDOMEN: No hepatosplenomegaly, normal bowel sounds, no guarding or rigidity. SPINE: No scoliosis or deformity SKIN: No rashes CENTRAL NERVOUS SYSTEM: No focal deficits, tone is normal in all 4 extremities. EXTREMITIES: There is no peripheral edema. No clubbing, no cyanosis. Peripheral pulses are intact. - Labs CBC & Chem 7: 04/10/20 05:32 04/10/20 05:32 Labs: Abnormal Lab Results - Last 24 Hours (Table) 04/06/20 04/06/20 04/07/20 Range/Units 22:49 23:43 03:25 Sodium (135-145) mmol/L Chloride (96-109) mmol/L BUN/Creatinine Ratio (.-.) Ratio Glucose (70-110) mg/dL POC Glucose (mg/dL) 229 H 230 H 139 H (75-99) mg/dL Calcium (8.7-10.3) mg/dL 04/07/20 04/07/20 04/07/20 Range/Units 04:14 05:14 08:57 Sodium (135-145) mmol/L Chloride (96-109) mmol/L BUN/Creatinine Ratio (.00-.00) Ratio Glucose (70-110) mg/dL POC Glucose (mg/dL) 150 H 115 H 129 H (75-99) mg/dL Calcium (8.7-10.3) mg/dL 04/07/20 04/07/20 04/07/20 Range/Units 10:09 11:03 12:10 Sodium (135-145) mmol/L Chloride (96-109) mmol/L BUN/Creatinine Ratio (.00-.00) Ratio Glucose (70-110) mg/dL POC Glucose (mg/dL) 225 H 149 H 173 H (75-99) mg/dL Calcium (8.7-10.3) mg/dL 04/07/20 04/07/20 04/07/20 Range/Units 14:04 16:02 18:33 Sodium (135-145) mmol/L Chloride (96-109) mmol/L BUN/Creatinine Ratio (.00-.00) Ratio Glucose (70-110) mg/dL POC Glucose (mg/dL) 164 H 142 H 138 H (75-99) mg/dL Calcium (8.7-10.3) mg/dL 04/07/20 04/07/20 04/07/20 Range/Units 20:00 21:11 22:53 Sodium (135-145) mmol/L Chloride (96-109) mmol/L BUN/Creatinine Ratio (.00-20.00) Ratio Glucose (70-110) mg/dL POC Glucose (mg/dL) 144 H 154 H 212 H (75-99) mg/dL Calcium (8.7-10.3) mg/dL 04/08/20 04/08/20 04/08/20 Range/Units 00:01 01:51 03:59 Sodium (135-145) mmol/L Chloride (96-109) mmol/L BUN/Creatinine Ratio (.-20.00) Ratio Glucose (70-110) mg/dL POC Glucose (mg/dL) 159 H 170 H 183 H (75-99) mg/dL Calcium (8.7-10.3) mg/dL 04/08/20 04/08/20 04/08/20 Range/Units 05:53 11:12 17:00 Sodium (135-145) mmol/L Chloride (96-109) mmol/L BUN/Creatinine Ratio (.00-20.00) Ratio Glucose (70-110) mg/dL POC Glucose (mg/dL) 170 H 164 H 162 H (75-99) mg/dL Calcium (8.7-10.3) mg/dL 04/08/20 04/09/20 04/09/20 Range/Units 23:40 05:45 11:16 Sodium (135-145) mmol/L Chloride (96-109) mmol/L BUN/Creatinine Ratio (.00-.00) Ratio Glucose (70-110) mg/dL POC Glucose (mg/dL) 130 H 112 H 153 H (75-99) mg/dL Calcium (8.7-10.3) mg/dL 04/09/20 04/09/20 04/10/20 Range/Units 17:39 20:07 05:32 Sodium 147 H (135-145) mmol/L Chloride 112 H (96-109) mmol/L BUN/Creatinine Ratio 25.71 H (12.00-20.00) Ratio Glucose 53 L (70-110) mg/dL POC Glucose (mg/dL) 108 H 296 H (75-99) mg/dL Calcium 8.6 L (8.7-10.3) mg/dL 04/10/20 Range/Units 10:46 Sodium (135-145) mmol/L Chloride (96-109) mmol/L BUN/Creatinine Ratio (12.00-20.00) Ratio Glucose (70-110) mg/dL POC Glucose (mg/dL) 104 H (75-99) mg/dL Calcium (8.7-10.3) mg/dL Microbiology - Last 24 Hours (Table) 04/06/20 21:50 Blood Culture - Preliminary Blood No Growth after 72 hours Assessment and Plan Assessment: 1 Diabetic ketoacidosis, improved 2 Altered mental status, suspect metabolic encephalopathy with ongoing dehydration poor oral intake, recovered 3 Diabetes mellitus, type II 4 Acute kidney injury, improving 5 metabolic acidosis, recovered 6 Recent admission for CoVID 19 pneumonitis with altered mental status 7 Degenerative joint disease 8 Hyperlipidemia 9 History of skin cancer Plan: The patient was seen and evaluated by Dr. Champ Herrera once cleared by medicine Outpatient neurology follow-up recommended I, the cosigning physician, performed a history & physical examination of the patient. Lungs sounds are clear. Maintaining good O2 saturations in the 90s on room air. I discussed the assessment and plan of care with my nurse prac titioner, Haydee Ling. I attest to the above note as dictated by her.
--- NOTE | 2020-04-10 13:42 | P.DS ---
Providers Date of admission: 04/06/20 22:38 Expected date of discharge: 04/10/20 Attending physician: Nancy Chambers MD Consults: 04/06/20 22:35 Consult Physician Stat Consulting Provider: Anuj Oakes Reason/Comments: DKA, altered mental status Do you want consulting provider notified?: Already Contacted Primary care physician: Dmitriy Gloria MD Hospital Course: Discharge Diagnosis: DKA in setting of type II DM with SGLT-2 inhibitor use Altered mental status likely due to metabolic encephalopathy Acute kidney injury on CK D Hypovolemic hyponatremia Severe metabolic acidosis secondary to DKA Leukocytosis Recent Covid 19 infection Hospital Course: Patient is a 59-year-old male who presented to the ED with altered mental status. Patient was found to have DKA. This is a readmission for altered mental status with DKA. #DKA in setting of type II DM with SGLT-2 inhibitor use -Anion gap is now closed -Blood glucose monitoring -Admitted to medical ICU -HgbA1c is 10.0. -Patient was on Farxiga that is linked to an increase in DKA risk. We will stop this on discharge and was start patient on long-acting insulin Levemir 12 units daily at bedtime. Per nurse outreach case manager co-pay for gómez is $30 for 25 day supply. #Altered mental status, likely metabolic encephalopathy -Likely secondary to DKA with severe dehydration -Patient's mental status has resolved and he appears to be at his baseline. #ATIF on CKD -Likely due to poor oral intake -Resolved with fluids #Hypovolemic Hypernatremia -Discontinue fluids -Improved #Severe metabolic acidosis -Likely secondary to DKA -Resolved #Leukocytosis -No signs of active infection at this time -Likely secondary to acute stressor with dehydration -Resolved #Recent COVID 19 infection -Stable -Chest x-ray shows improvement in aeration Patient's mentation has improved. Patient's who is a nurse I discussed with her about stopping all his diabetic meds except for metformin. I told her that we'll not start him on Levemir at bedtime. 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 Patient Condition at Discharge: Stable Plan - Discharge Summary Discharge Rx Participant: Yes New Discharge Prescriptions: New Insulin Detemir [Levemir Flextouch] 12 units SQ HS 25 Days #100 pen Continue Atorvastatin [Lipitor] 10 mg PO HS metFORMIN HCL 1,000 mg PO BID Aspirin EC [Ecotrin Low Dose] 81 mg PO DAILY Cholecalciferol [Vitamin D3 (25 Mcg = 1000 Iu)] 2,000 unit PO DAILY #28 tablet Zinc Sulfate 220 mg PO DAILY #14 capsule Promethazine/Dextromethorphan [Promethazine-Dm 6.25-15 mg/5Ml] 5 ml PO Q4H PRN PRN Reason: Cough Discontinued Ertugliflozin Pidolate [Steglatro] 15 mg PO DAILY Dapagliflozin Propanediol [Farxiga] 10 mg PO DAILY Azithromycin [Zithromax] 500 mg PO DAILY Discharge Medication List Aspirin EC [Ecotrin Low Dose] 81 mg PO DAILY 08/05/15 [History] Atorvastatin [Lipitor] 10 mg PO HS 08/05/15 [History] metFORMIN HCL 1,000 mg PO BID 08/05/15 [History] Cholecalciferol [Vitamin D3 (25 Mcg = 1000 Iu)] 2,000 unit PO DAILY #28 tablet 03/28/20 [Rx] Zinc Sulfate 220 mg PO DAILY #14 capsule 03/28/20 [Rx] Promethazine/Dextromethorphan [Promethazine-Dm 6.25-15 mg/5Ml] 5 ml PO Q4H PRN 04/06/20 [History] Insulin Detemir [Levemir Flextouch] 12 units SQ HS 25 Days #100 pen 04/10/20 [Rx] Follow up Appointment(s)/Referral(s): Dmitriy Gloria MD [Primary Care Provider] - 1-2 days Discharge/Stand Alone Forms: Work/School Release Discharge Disposition: HOME SELF-CARE
== END 2020-04-10 15:55 | disposition home or self-care (01) | DRG 637 ==
LOC: EC 19:26 → 2SICU 22:38 → 6NMEDSUR 04-08 15:01
PROVIDERS: ADMIT Internal Medicine; ATTEND Internal Medicine
DX: E11.10 Type 2 diabetes mellitus with ketoacidosis without coma (principal); G93.41 Metabolic encephalopathy; J84.9 Interstitial pulmonary disease, unspecified; N17.9 Acute kidney failure, unspecified; E11.22 Type 2 diabetes mellitus with diabetic chronic kidney disease; E78.5 Hyperlipidemia, unspecified; E86.0 Dehydration; E86.1 Hypovolemia; M19.90 Unspecified osteoarthritis, unspecified site; N18.9 Chronic kidney disease, unspecified; Z78.1 Physical restraint status; Z79.82 Long term (current) use of aspirin; Z79.84 Long term (current) use of oral hypoglycemic drugs; Z79.899 Other long term (current) drug therapy; Z80.9 Family history of malignant neoplasm, unspecified; Z85.828 Personal history of other malignant neoplasm of skin; Z86.19 Personal history of other infectious and parasitic diseases; Z86.73 Personal history of transient ischemic attack (TIA), and cerebral infarction without residual deficits; Z91.030 Bee allergy status; Z98.890 Other specified postprocedural states
CPT/HCPCS: 36415; 71045; 80048; 80051; 80053; 80306; 80320; 81001; 82009; 82140; 82565; 82803; 82947; 83036; 83605; 83930; 84100; 84484; 84520; 85025; 85027; 85610; 85730; 87040; 93005; 96360; 96361; 99291

== ENCOUNTER → 2021-01-13 | Outpatient (CLI) | payer MEDICAID ==
[2021-01-13 15:12] LABS: Basophils # (A) 0.05 X 10*3/uL (0.00-0.10); Basophils % (A) 0.6 %; Eosinophils % (A) 3.5 %; HGB 12.9 g/dL (13.0-17.0); Lymphocytes # (A) 2.89 X 10*3/uL (0.90-5.00); MCH 30.2 pg (27.0-32.0); MCHC 32.3 g/dL (32.0-37.0); MCV 93.7 fL (80.0-97.0); Mean Platelet Volume 10.3 fL (9.5-12.2); Monocytes # (A) 0.49 X 10*3/uL (0.20-1.00); Monocytes % (A) 5.8 %; Neutrophils % (A) 55.4 %; Platelet Count 304 X 10*3/uL (140-440); RBC 4.27 X 10*6/uL (4.40-5.60); WBC 8.49 X 10*3/uL (4.50-10.00)
[2021-01-13 19:10] LABS: LDL Cholesterol,Calculated 89.7 mg/dL (0.0-131.0); VLDL Calculation 25.2 mg/dL (5.00-40.00)
[2021-01-13 20:13] LABS: African American GFR (CKD) 80.3 (60.0-200.0); Albumin 4.2 g/dL (3.8-4.9); Albumin/Globulin Ratio 2.1 (1.60-3.17); Anion Gap 12.8 mmol/L (4.00-12.00); BUN/Creat Ratio 20.62 Ratio (12.00-20.00); Blood Urea Nitrogen 23.3 mg/dL (9.0-27.0); Calcium 9.1 mg/dL (8.7-10.3); Carbon Dioxide 23.4 mmol/L (21.6-31.8); Chol/HDL Ratio 3.39 Ratio; HDL Cholesterol 48.1 mg/dL (40.00-60.00); Non-African American GFR(CKD) 69.3 (60.0-200.0); PSA Annual Screen 0.4 ng/mL (0.000-4.000); T4, Free (Free Thyroxine) 1.16 ng/dL (0.800-1.800); Total Bilirubin 0.4 mg/dL (0.30-1.20); Total Protein 6.3 g/dL (6.2-8.2)
== END | disposition home or self-care (01) ==
LOC: LABWHC1 07:43
PROVIDERS: ATTEND Family Medicine
DX: Z00.00 Encounter for general adult medical examination without abnormal findings (principal)
CPT/HCPCS: 84439; 80061; 80053; 84443; 85025; 36415; G0103

== ENCOUNTER 2022-03-14 06:01 | Day surgery (SDC) | payer MEDICAID ==
[2022-03-14] MEDS ORDERED: LIDOCAINE 1% (10MG/ML) FOR IV START INTRADERMA PRN (06:32)
[2022-03-14 06:39] VITALS: TEMP 97.9
[2022-03-14 06:50] LABS: Glucose,Whole Blood 96 mg/dL (70-110)
[2022-03-14] MEDS: LACTATED RINGERS 1,000 ML IV SCH ×2 (06:50→07:01)
[2022-03-14] MEDS ORDERED: PROPOFOL 10 MG/ML 20 ML VIAL IV ONE (07:00)
--- NOTE | 2022-03-14 07:25 | P.PCN ---
Date of Procedure: 03/14/22 Procedure(s) Performed: BRIEF HISTORY: Patient is a 61-year-old pleasant white male scheduled for an elective colonoscopy as a part of evaluation of prior history of colon polyps and family history of colon cancer. His dad was diagnosed with colon cancer at age 51. PROCEDURE PERFORMED: Colonoscopy with snare polypectomy. PREOPERATIVE DIAGNOSIS: History of colon polyps and family history of colon cancer. IV sedation per Anesthesia. PROCEDURE: After informed consent was obtained, the patient, was brought into the endoscopy unit. IV sedation was administered by Anesthesia under continuous monitoring. Digital rectal examination was normal. Initially the Olympus CF-160 flexible video colonoscope was then inserted in the rectum, gradually advanced into the cecum without any difficulty. Careful examination was performed as the scope was gradually being withdrawn. Ileocecal valve and the appendiceal orifice were visualized and appeared normal. Prep was excellent. Mucosa of the cecum, appeared normal. In the ascending colon there was a 7 mm polyp that was removed by snare polypectomy. ascending colon, transverse colon, descending colon, sigmoid colon, and rectum appeared normal. Retroflexion was performed in the rectum and no lesions were seen. The patient tolerated the procedure well. IMPRESSION: 7 mm ascending colon polyp status post polypectomy Rest of the colon appeared normal RECOMMENDATIONS: Findings of this examination were discussed with the patient as well as his family. He was advised to follow with the biopsy results and have a repeat colonoscopy in 5 years because of the family history of colon cancer..
[2022-03-14 08:04] VITALS: BP 123/78; PULSE 83; RESP 17
== END 2022-03-14 08:25 | disposition home or self-care (01) ==
LOC: ORWHC2ENDO 06:01
PROVIDERS: ATTEND Internal Medicine Gastroenterology
DX: Z12.11 Encounter for screening for malignant neoplasm of colon (principal); D12.2 Benign neoplasm of ascending colon; E78.5 Hyperlipidemia, unspecified; E11.9 Type 2 diabetes mellitus without complications; M19.90 Unspecified osteoarthritis, unspecified site; Z79.899 Other long term (current) drug therapy; Z86.010 Personal history of colon polyps; Z80.0 Family history of malignant neoplasm of digestive organs
CPT/HCPCS: 88305; 45385; J2704

== ENCOUNTER → 2022-11-13 | Outpatient (CLI) | payer MEDICAID ==
[2022-11-13 15:51] LABS: HCT 40.7 % (39.6-50.0); MCH 30.4 pg (27.0-32.0); MCHC 31.9 d/dL (32.0-37.0); MCV 95.1 FL (80.0-97.0); Mean Platelet Volume 11.2 FL (9.5-12.2); NRBC Per 100 WBC 0 X 10*3/uL (0.00-0.01); Platelet Count 282 X 10*3/uL (140-440); RBC 4.28 X 10*6/uL (4.40-5.60); RDW 12.1 % (11.5-14.5); WBC 8.83 X 10*3/uL (4.50-10.00)
[2022-11-13 16:22] LABS: ALT 14 U/L (10-49); AST 15 U/L (14-35); Albumin 4.6 d/dL (3.8-4.9); Alkaline Phosphatase 82 U/L (41-126); BUN/Creat Ratio 15.22 Ratio (12.00-20.00); Blood Urea Nitrogen 27.4 mg/dL (9.0-27.0); Calcium 9.8 mg/dL (8.7-10.3); Carbon Dioxide 23.1 mmol/L (21.6-31.8); Chloride 106 mmol/L (96-109); Chol/HDL Ratio 3.52 Ratio; Creatine Kinase 48 U/L (35-257); Glucose 142 mg/dL (70-110); LDL Cholesterol,Calculated 101.5 mg/dL (0.0-131.0); Magnesium 1.9 mg/dL (1.5-2.4); Potassium 5.9 mmol/L (3.5-5.5); Sodium 140 mmol/L (135-145); Total Bilirubin 0.5 mg/dL (0.3-1.2); Total Protein 6.6 d/dL (6.2-8.2)
== END | disposition home or self-care (01) ==
LOC: LABWHC1 08:54
PROVIDERS: ATTEND Family Medicine
DX: Z76.89 Persons encountering health services in other specified circumstances (principal); E11.22 Type 2 diabetes mellitus with diabetic chronic kidney disease; E78.5 Hyperlipidemia, unspecified; N18.9 Chronic kidney disease, unspecified
CPT/HCPCS: 36415; 80053; 80061; 82550; 83036; 83735; 84443; 84480; 85027

== ENCOUNTER → 2023-01-02 | Outpatient (CLI) | payer MEDICAID ==
--- NOTE | 2023-01-02 09:33 | US ---
EXAMINATION TYPE: US kidneys/renal and bladder DATE OF EXAM: 01/02/2023 COMPARISON: US CLINICAL INDICATION: Male, 62 years old with history of R31.29 HEMATURIA N20.0 CALCULUS OF KIDNEY; P t states left flank pain with microscopic hematuria EXAM MEASUREMENTS: Right Kidney: 10.0 x 5.1 x 4.5 cm Left Kidney: 10.4 x 4.8 x 4.7 cm Right Kidney: Simple cyst in the interpolar region measuring 0.7 x 0.8 x 0.9 cm/ No evidence of hydro Left Kidney: Mild hydro Bladder: wnl Bilateral Jets seen: Yes There is no evidence for hydronephrosis at this point in time. No nephrolithiasis is seen. No dayna s are identified. The urinary bladder is anechoic. Bilateral ureteral jets are seen. IMPRESSION: 1. Mild left-sided hydronephrosis. This is of indeterminate etiology based on this examination. This would be better evaluated by CT. 2. Simple right renal cyst.
== END | disposition home or self-care (01) ==
LOC: RADUSWWP 07:23
PROVIDERS: ATTEND Family Medicine
DX: E11.22 Type 2 diabetes mellitus with diabetic chronic kidney disease (principal); N13.30 Unspecified hydronephrosis; N20.0 Calculus of kidney; N28.1 Cyst of kidney, acquired; N18.9 Chronic kidney disease, unspecified; R31.29 Other microscopic hematuria
CPT/HCPCS: 76770

== ENCOUNTER → 2023-01-22 | Outpatient (CLI) | payer MEDICAID ==
[2023-01-22 18:47] LABS: African American GFR (CKD) 52 (>60 ml/min/1.73 sqM); Blood Urea Nitrogen 37 mg/dL (9-20); Non-African American GFR(CKD) 45 (>60 ml/min/1.73 sqM)
--- NOTE | 2023-01-23 07:59 | CT ---
EXAMINATION TYPE: CT abdomen pelvis w con CT DLP: 709.40 mGycm, Automated exposure control for dose reduction was used. DATE OF EXAM: 01/22/2023 7:32 PM COMPARISON: Renal ultrasound 01/02/2023 CLINICAL INDICATION:Male, 62 years old with history of N13.30 UNSPECIFIED HYDRONEPHROSIS; UNSPECIFIED HYDRONEPHROSIS AND LEFT SIDE ABDOMINAL PAIN ON AND OFF TECHNIQUE: Standard CT of the abdomen and pelvis following the administration of 70 cc of Isovue 30 0 IV contrast material and oral contrast. Coronal and sagittal reformats were performed. FINDINGS: LOWER CHEST: Unremarkable ABDOMEN LIVER: Unremarkable GALLBLADDER AND BILE DUCTS: Unremarkable. PANCREAS: Couple of calcifications within the pancreatic head. No ductal dilatation. SPLEEN: Calcific granuloma. ADRENAL GLANDS: Unremarkable. KIDNEYS AND URETERS: Mild left hydroureteronephrosis with an obstructing 4 m calculus at the ureterov esical junction. Mild left perinephric fat stranding. Subcentimeter cortical anterior right mid kidne y cyst. Left retroaortic renal vein. Contrast is demonstrated within both collecting systems on the d elayed phase. PELVIS BLADDER: Unremarkable REPRODUCTIVE: Coarse calcifications of the prostate gland are identified. ABDOMEN & PELVIS STOMACH AND BOWEL: Stomach and duodenum are unremarkable. Enteric contrast reaches the descending col on. The appendix is within normal limits. No evidence of bowel obstruction. PERITONEUM: No evidence of pneumoperitoneum or free fluid. VASCULATURE: No evidence of aortic aneurysm. Couple of pelvic phleboliths. MUSCULOSKELETAL: No acute osseous abnormalities. Mild disc degeneration changes are present throughou t the thoracolumbar spine. LYMPH NODES: No gross evidence for lymphadenopathy. SOFT TISSUE/ABDOMINAL WALL: Unremarkable IMPRESSION: Mild left hydroureteronephrosis with an obstructing 4 mm calculus of the ureterovesical junction.
== END | disposition home or self-care (01) ==
LOC: RADCTMAIN 17:15
PROVIDERS: ATTEND Family Medicine
DX: N13.2 Hydronephrosis with renal and ureteral calculous obstruction (principal)
CPT/HCPCS: 82565; 84520; 74177; 36415; Q9967

== ENCOUNTER → 2023-02-26 | Outpatient (CLI) | payer MEDICAID ==
[2023-02-26 10:45] LABS: HCT 36.7 % (39.6-50.0); HGB 11.9 g/dL (13.0-17.0); MCH 30.2 pg (27.0-32.0); MCHC 32.4 g/dL (32.0-37.0); MCV 93.1 FL (80.0-97.0); Mean Platelet Volume 10.5 FL (9.5-12.2); NRBC Per 100 WBC 0 X 10*3/uL (0.00-0.01); Platelet Count 299 X 10*3/uL (140-440); RBC 3.94 X 10*6/uL (4.40-5.60); RDW 12.8 % (11.5-14.5); WBC 8.85 X 10*3/uL (4.50-10.00)
[2023-02-26 11:10] LABS: INR 0.95 sec (0.93-1.11); Prothrombin Time 10.3 sec (9.9-11.9)
[2023-02-26 11:14] LABS: ALT 20 U/L (10-49); AST 16 U/L (14-35); Albumin 4.3 g/dL (3.8-4.9); Albumin/Globulin Ratio 2.05 Ratio (1.60-3.17); Alkaline Phosphatase 83 U/L (41-126); BUN/Creat Ratio 18.28 Ratio (12.00-20.00); Blood Urea Nitrogen 32.9 mg/dL (9.0-27.0); C Reactive Protein, High Sens 0.691 mg/L (0.000-3.000); Calcium 9.7 mg/dL (8.7-10.3); Carbon Dioxide 20.8 mmol/L (21.6-31.8); Chloride 109 mmol/L (96-109); Ferritin 65.5 ng/mL (22.0-322.0); Globulin 2.1 g/dL (1.6-3.3); Glucose 170 mg/dL (70-110); Potassium 5.5 mmol/L (3.5-5.5); Sodium 141 mmol/L (135-145); Total Bilirubin 0.5 mg/dL (0.3-1.2); Total Protein 6.4 g/dL (6.2-8.2)
[2023-02-26 11:20] LABS: Hepatitis A Antibody IgM Nonreactive; Hepatitis B Core IgM Nonreactive; Hepatitis B Surface Antigen Nonreactive; Hepatitis C IgG Antibody Nonreactive
[2023-02-26 13:26] LABS: HIV 2 AB Non-Reactive (Non-Reactive); HIV AB P24 Non-Reactive (Non-Reactive); HIV P24 AG Non-Reactive (Non-Reactive)
[2023-02-26 13:31] LABS: Microalbumin Creatinine Ratio <11 mg/g Cr (0-30)
== END | disposition home or self-care (01) ==
LOC: LABWHC1 07:42
PROVIDERS: ATTEND Family Medicine
DX: Z77.011 Contact with and (suspected) exposure to lead (principal); Z91.89 Other specified personal risk factors, not elsewhere classified; E11.22 Type 2 diabetes mellitus with diabetic chronic kidney disease; D63.1 Anemia in chronic kidney disease; R79.89 Other specified abnormal findings of blood chemistry; R74.8 Abnormal levels of other serum enzymes; N18.9 Chronic kidney disease, unspecified
CPT/HCPCS: 36415; 80053; 80074; 82043; 82570; 82728; 83036; 83655; 84153; 85027; 85610; 86038; 86141; 87390

== ENCOUNTER → 2023-03-05 | Outpatient (CLI) | payer MEDICAID ==
--- NOTE | 2023-03-05 10:42 | XR ---
EXAMINATION TYPE: XR KUB DATE OF EXAM: 03/05/2023 Comparison: CT 01/22/2023 Clinical History: 62-year-old male N20.1 Calculus Left ureter Findings: Scattered mild stool. Nonobstructive bowel gas pattern. Supine imaging limited for assessment of free air. Calcifications in the pelvis likely phleboliths and prostatic calcifications. Difficult to conf idently identify a tiny distal left ureteral stone. Impression: Calcifications in the pelvis likely combination of phleboliths and prostatic calcifications. Subtle 4 mm calcification on the left could represent the distal left ureteral stone seen on 01/22/2023 CT if symptoms are persisting.
== END | disposition home or self-care (01) ==
LOC: RADXRMAIN 09:18
PROVIDERS: ATTEND Urology
DX: N20.1 Calculus of ureter (principal)
CPT/HCPCS: 74018

== ENCOUNTER → 2023-03-22 | Outpatient (CLI) | payer MEDICAID ==
--- NOTE | 2023-03-22 13:31 | XR ---
EXAMINATION TYPE: XR KUB DATE OF EXAM: 03/22/2023 9:24 AM CLINICAL INDICATION:Male, 62 years old with history of N20.1; calculus left ureter COMPARISON: KUB 03/05/2023 and before TECHNIQUE: Supine radiographic view/s of the abdomen/pelvis obtained. FINDINGS: The previously seen calcification projected near the left ureterovesical junction is no longer identi fied. Stable pelvic calcifications including phleboliths. Otherwise no definite calculi can be seen a long the anticipated course of the ureters. A 3.3 mm calcification over the right upper quadrant, cou ld relate to renal calculus. The bowel gas pattern is nonspecific, likely nonobstructive without dilated loops of small or large b owel. Fecal material and gas are demonstrated throughout the colon and rectum. No gross evidence of o rganomegaly. No evidence of pneumoperitoneum, on this supine study. Osseous structures appear grossly intact with mild/moderate degenerative changes seen. If concern persists, consider follow-up radiographs and/or CT. IMPRESSION: 1. Previously seen calcification projected near the left ureterovesical junction is no longer identi fied. 2. Possible small right renal calculus. 3. Nonspecific, likely nonobstructive bowel gas pattern.
== END | disposition home or self-care (01) ==
LOC: RADXRMAIN 09:09
PROVIDERS: ATTEND Urology
DX: N20.1 Calculus of ureter (principal); N28.89 Other specified disorders of kidney and ureter
CPT/HCPCS: 74018

== ENCOUNTER → 2023-08-12 | Outpatient (CLI) | payer MEDICAID ==
[2023-08-12 14:26] LABS: HCT 40.2 % (39.6-50.0); HGB 13.1 g/dL (13.0-17.0); MCH 30.3 pg (27.0-32.0); MCHC 32.6 g/dL (32.0-37.0); MCV 92.8 FL (80.0-97.0); Mean Platelet Volume 10.1 FL (9.5-12.2); NRBC Per 100 WBC 0 X 10*3/uL (0.00-0.01); Platelet Count 310 X 10*3/uL (140-440); RBC 4.33 X 10*6/uL (4.40-5.60); RDW 12.3 % (11.5-14.5); WBC 11.39 X 10*3/uL (4.50-10.00)
[2023-08-12 15:20] LABS: ALT 35 U/L (10-49); AST 17 U/L (14-35); Albumin 4.5 g/dL (3.8-4.9); Albumin/Globulin Ratio 1.96 Ratio (1.60-3.17); Alkaline Phosphatase 95 U/L (41-126); BUN/Creat Ratio 15.88 Ratio (12.00-20.00); Calcium 9.8 mg/dL (8.7-10.3); Carbon Dioxide 23.3 mmol/L (21.6-31.8); Chloride 101 mmol/L (96-109); Chol/HDL Ratio 4.16 Ratio; Globulin 2.3 g/dL (1.6-3.3); Glucose 218 mg/dL (70-110); LDL Cholesterol,Calculated 107.2 mg/dL (0.0-131.0); Potassium 4.9 mmol/L (3.5-5.5); Sodium 143 mmol/L (135-145); Total Bilirubin 0.5 mg/dL (0.3-1.2); Total Protein 6.8 g/dL (6.2-8.2)
== END | disposition home or self-care (01) ==
LOC: LABWHC1 08:32
PROVIDERS: ATTEND Family Medicine
DX: N18.30 Chronic kidney disease, stage 3 unspecified (principal); E78.5 Hyperlipidemia, unspecified
CPT/HCPCS: 36415; 80053; 80061; 83036; 84443; 85027

== ENCOUNTER → 2023-10-25 | Outpatient (CLI) | payer MEDICAID ==
[2023-10-25 15:51] LABS: ALT 19 U/L (10-49); AST 14 U/L (14-35); Albumin 4.3 g/dL (3.8-4.9); Albumin/Globulin Ratio 2.15 Ratio (1.60-3.17); Alkaline Phosphatase 82 U/L (41-126); BUN/Creat Ratio 17.72 Ratio (12.00-20.00); Blood Urea Nitrogen 31.9 mg/dL (9.0-27.0); Calcium 9.1 mg/dL (8.7-10.3); Carbon Dioxide 24.5 mmol/L (21.6-31.8); Chloride 106 mmol/L (96-109); Glucose 211 mg/dL (70-110); HCT 38.2 % (39.6-50.0); HGB 12.1 g/dL (13.0-17.0); LDL Cholesterol,Calculated 100.8 mg/dL (0.0-131.0); MCH 30.7 pg (27.0-32.0); MCHC 31.7 g/dL (32.0-37.0); Mean Platelet Volume 10.7 FL (9.5-12.2); NRBC Per 100 WBC 0 X 10*3/uL (0.00-0.01); Platelet Count 297 X 10*3/uL (140-440); RBC 3.94 X 10*6/uL (4.40-5.60); RDW 12.3 % (11.5-14.5); Sodium 142 mmol/L (135-145); Total Bilirubin 0.4 mg/dL (0.3-1.2); Total Protein 6.3 g/dL (6.2-8.2); WBC 8.78 X 10*3/uL (4.50-10.00)
== END | disposition home or self-care (01) ==
LOC: LABWHC1 09:14
PROVIDERS: ATTEND Family Medicine
DX: E11.22 Type 2 diabetes mellitus with diabetic chronic kidney disease (principal); E78.5 Hyperlipidemia, unspecified; I12.9 Hypertensive chronic kidney disease with stage 1 through stage 4 chronic kidney disease, or unspecified chronic kidney disease; N18.9 Chronic kidney disease, unspecified; D63.1 Anemia in chronic kidney disease
CPT/HCPCS: 36415; 80053; 80061; 82043; 82570; 83036; 84443; 85027

== ENCOUNTER → 2024-02-25 | Outpatient (CLI) | payer MEDICAID ==
[2024-02-25 16:29] LABS: ALT 14 U/L (10-49); AST 16 U/L (14-35); Albumin 4.5 g/dL (3.8-4.9); Albumin/Globulin Ratio 1.96 Ratio (1.60-3.17); Alkaline Phosphatase 78 U/L (41-126); BUN/Creat Ratio 16.47 Ratio (12.00-20.00); Blood Urea Nitrogen 31.3 mg/dL (9.0-27.0); Calcium 10.1 mg/dL (8.7-10.3); Carbon Dioxide 21.4 mmol/L (21.6-31.8); Chloride 107 mmol/L (96-109); Chol/HDL Ratio 3.43 Ratio; Globulin 2.3 g/dL (1.6-3.3); Glucose 139 mg/dL (70-110); LDL Cholesterol,Calculated 98.9 mg/dL (0.0-131.0); Potassium 5.4 mmol/L (3.5-5.5); Prostate Specific Antigen 0.62 ng/mL (0.000-4.500); Sodium 140 mmol/L (135-145); Total Bilirubin 0.6 mg/dL (0.3-1.2); Total Protein 6.8 g/dL (6.2-8.2)
[2024-02-25 17:02] LABS: MCHC 31.7 g/dL (32.0-37.0); MCV 94.5 FL (80.0-97.0); Mean Platelet Volume 9.8 FL (9.5-12.2); NRBC Per 100 WBC 0 X 10*3/uL (0.00-0.01); Platelet Count 345 X 10*3/uL (140-440); RBC 4.34 X 10*6/uL (4.40-5.60); RDW 12.5 % (11.5-14.5); WBC 10.71 X 10*3/uL (4.50-10.00)
== END | disposition home or self-care (01) ==
LOC: LABWHC1 07:48
PROVIDERS: ATTEND Family Medicine
DX: E11.65 Type 2 diabetes mellitus with hyperglycemia (principal)
CPT/HCPCS: 36415; 80053; 80061; 82043; 82570; 83036; 84153; 84443; 85027

== ENCOUNTER → 2024-06-17 | Outpatient (CLI) | payer MEDICAID ==
[2024-06-17 10:40] LABS: HCT 40.1 % (39.6-50.0); HGB 12.7 g/dL (13.0-17.0); MCHC 31.7 g/dL (32.0-37.0); MCV 94.8 FL (80.0-97.0); Mean Platelet Volume 10.2 FL (9.5-12.2); NRBC Per 100 WBC 0 X 10*3/uL (0.00-0.01); Platelet Count 320 X 10*3/uL (140-440); RBC 4.23 X 10*6/uL (4.40-5.60); RDW 12.3 % (11.5-14.5); WBC 9.99 X 10*3/uL (4.50-10.00)
[2024-06-17 10:54] LABS: ALT 17 U/L (10-49); AST 15 U/L (14-35); Albumin 4.5 g/dL (3.8-4.9); Albumin/Globulin Ratio 2.37 Ratio (1.60-3.17); Alkaline Phosphatase 84 U/L (41-126); BUN/Creat Ratio 14.78 Ratio (12.00-20.00); Blood Urea Nitrogen 26.6 mg/dL (9.0-27.0); Calcium 9.7 mg/dL (8.7-10.3); Carbon Dioxide 22.6 mmol/L (21.6-31.8); Chloride 114 mmol/L (96-109); Chol/HDL Ratio 3.05 Ratio; Globulin 1.9 g/dL (1.6-3.3); Glucose 146 mg/dL (70-110); LDL Cholesterol,Calculated 82.6 mg/dL (0.0-131.0); Potassium 5.3 mmol/L (3.5-5.5); Sodium 148 mmol/L (135-145); Total Bilirubin 0.3 mg/dL (0.3-1.2); Total Protein 6.4 g/dL (6.2-8.2)
== END | disposition home or self-care (01) ==
LOC: LABWHC1 07:25
PROVIDERS: ATTEND Family Medicine
DX: E11.22 Type 2 diabetes mellitus with diabetic chronic kidney disease (principal); N18.30 Chronic kidney disease, stage 3 unspecified
CPT/HCPCS: 36415; 80053; 80061; 83036; 84443; 85027

== ENCOUNTER → 2024-10-22 | Outpatient (CLI) | payer MEDICARE ==
[2024-10-22 15:30] LABS: HCT 40.1 % (39.6-50.0); HGB 12.6 g/dL (13.0-17.0); MCH 30.0 pg (27.0-32.0); MCHC 31.4 g/dL (32.0-37.0); MCV 95.5 FL (80.0-97.0); NRBC Per 100 WBC 0 X 10*3/uL (0.00-0.01); Platelet Count 330 X 10*3/uL (140-440); RBC 4.20 X 10*6/uL (4.40-5.60); RDW 12.3 % (11.5-14.5); WBC 10.01 X 10*3/uL (4.50-10.00)
[2024-10-22 15:45] LABS: ALT 25 U/L (10-49); AST 19 U/L (14-35); Albumin 4.7 g/dL (3.8-4.9); Albumin/Globulin Ratio 2.47 Ratio (1.60-3.17); Alkaline Phosphatase 87 U/L (41-126); Anion Gap 11.50 mmol/L (4.00-12.00); BUN/Creat Ratio 16.38 Ratio (12.00-20.00); Blood Urea Nitrogen 34.4 mg/dL (9.0-27.0); Calcium 9.6 mg/dL (8.7-10.3); Carbon Dioxide 22.5 mmol/L (21.6-31.8); Chloride 106 mmol/L (96-109); Globulin 1.9 g/dL (1.6-3.3); Glucose 148 mg/dL (70-110); Potassium 6.5 mmol/L (3.5-5.5); Sodium 140 mmol/L (135-145); Total Protein 6.6 g/dL (6.2-8.2)
== END | disposition home or self-care (01) ==
LOC: LABWHC1 09:36
PROVIDERS: ATTEND Family Medicine
DX: I12.9 Hypertensive chronic kidney disease with stage 1 through stage 4 chronic kidney disease, or unspecified chronic kidney disease (principal); E11.22 Type 2 diabetes mellitus with diabetic chronic kidney disease; N18.9 Chronic kidney disease, unspecified; E78.5 Hyperlipidemia, unspecified
CPT/HCPCS: 36415; 80053; 83036; 84443; 85027